=== PATIENT | female | born 1940 | race Caucasian/White ===

== ENCOUNTER 2017-11-22 03:53 | Emergency (ER) | payer MEDICARE, OTHER, SELFPAY ==
[2017-11-22 03:55] VITALS: BP 151/80; PULSE 71; RESP 18; TEMP 36.7; O2SAT 98; BMI 23.1
--- NOTE | 2017-11-22 04:10 | ED.VISSUMM ---
- ER Visit Summary Date of Service: 11/22/17 Chief Complaint: Fell down the steps of a mobile home History of Present Illness: The patient is a 77 F past medical history of anemia and hypertension. She and her have a new puppy she was taken outside this morning tripped lost her balance and fell down the steps walking out of the mobile home. She denies any LOC. Unsure of her last tetanus shot. She believes it may be greater than 10 years. She is on no anticoagulation. As she fell on the mobile home she had steps going down. She has a laceration to her left eyebrow. Also skin tears of her left forearm and left lower leg. She denies any neck pain. She denies other injuries. Physical Examination: Well appearing older female accompanied by her . Vital signs are stable afebrile. No distress. H EENT exam pupils are round and reactive to light. Extra motions are intact. The left eyebrow has a 4-5 cm vertical laceration. That will need to be repaired. No signs of entrapment. No dental injury. Scalp is nontender without hematomas. C-spine nontender trachea midline. Normal range of motion to her neck. Lungs clear to auscultation bilaterally. Chest wall nontender. No signs of trauma. Heart regular rate and rhythm no murmur. Abdomen soft nontender. Normal bowel sounds. No signs of trauma. Pelvic girdle intact. She is moving all 4 extremities. They are neurovascularly intact. No signs of trauma to either the right upper or the right lower extremity. The left forearm has a skin tear. As does the left lower leg. There are no gross bony deformities. 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 She has normal range of motion and dorsi and plantar flexion in the lower extremity. Back exam is nontender. The cervical, thoracic and lumbar spine are all nontender. Neurologically she is awake and alert. Mary Jane Coma Scale 15. No focal motor or sensory deficits. She is awake alert and talking. Acting appropriately. Test Results: None Emergency Department Course and Treatment: Suture repair left eyebrow. Let then subcu lidocaine. Cleaned with Shur-Clens, washed and explored. Closed with #4 simple interrupted 5-0 Ethilon sutures. Proper hemostasis and wound closure obtained. Patient tolerated procedure well. Was discharged home with wound care instructions and suture removal in 7-10 days. Treatment Plan: Cleaned and washed and dressed all skin tears. Patient is doing well on repeat exam at 05 10. Neurologically remains intact. With no focal motor deficits. No headache. And moving all 4 extremities. Disposition: Discharge Impression: Fall down steps leaving mobile home Left eyebrow laceration with ER repair of approximately 5 cm. Left forearm skin tear Left lower leg skin tear and contusion This note was generated with [employer] dictation software. It may contain incorrect words, spelling, and punctuation that were not noted in review of the chart prior to signing ED Disposition - Plan for ED Patient: Disposition: Home or Assisted Living Chief Complaint: Laceration Instructions: ED Contusion Soft Tissue, ED Laceration Facial Sutr Tape Referrals: Elena Casiano MD [Primary Care Provider] - 10 Day for suture removal Additional Instructions: Ice to all sore areas. Keep all wounds clean. Apply antibiotic ointment daily. Left eyebrow suture removal in no less than 7 and no more than 10 days. Tylenol for pain. Call return if feeling worse.
--- NOTE | 2017-11-22 04:15 | ED.DEP ---
ED Disposition - Plan for ED Patient: Disposition: Home or Assisted Living Chief Complaint: Laceration Instructions: ED Laceration Facial Sutr Tape, ED Contusion Soft Tissue Referrals: Elena Casiano MD [Primary Care Provider] - 10 Day for suture removal Additional Instructions: Ice to all sore areas. Keep all wounds clean. Apply antibiotic ointment daily. Left eyebrow suture removal in no less than 7 and no more than 10 days. Tylenol for pain. Call return if feeling worse.
[2017-11-22] MEDS: Lidocaine/Epi/Tetracaine 50 ML 1 APPLIC TOPICAL (04:25)
[2017-11-22] MEDS: Diphth,Pertuss(Acell),Tet Vac 0.5 ML Vial IM (04:27)
[2017-11-22 05:21] VITALS: BP 116/71; PULSE 68; RESP 16; O2SAT 95
== END 2017-11-22 05:23 | disposition home or self-care (01) ==
PROVIDERS: Emergency Provider Emergency Medicine; Family Provider Internal Medicine; PCP Internal Medicine
DX: S01.112A Laceration without foreign body of left eyelid and periocular area, initial encounter (principal); S51.812A Laceration without foreign body of left forearm, initial encounter; S81.812A Laceration without foreign body, left lower leg, initial encounter; W01.0XXA Fall on same level from slipping, tripping and stumbling without subsequent striking against object, initial encounter; Y93.9 Activity, unspecified; Y92.028 Other place in mobile home as the place of occurrence of the external cause; Y99.9 Unspecified external cause status; I10 Essential (primary) hypertension; D64.9 Anemia, unspecified; Z79.899 Other long term (current) drug therapy
CPT/HCPCS: 12013; 90471; 90715; 99284

== ENCOUNTER 2018-09-02 22:56 | Inpatient (IN) | payer MEDICARE, OTHER, SELFPAY ==
[2018-09-02 22:58] VITALS: BP 93/61; PULSE 111; RESP 17; TEMP 37.4; O2SAT 92; BMI 24.1
--- NOTE | 2018-09-02 23:13 | CT_ITS ---
STUDY: CT BRAIN WITHOUT CONTRAST REASON FOR EXAM: Female, 78 years old. Confusion and difficulty with speech. RADIATION DOSAGE (If Supplied By Facility): CTDIvol = ( 44.99 ) mGy, DLP = ( 796.11 ) mGycm TECHNIQUE: Transaxial CT imaging of the brain was performed without administration of intravenous contrast material. Multiplanar reformations are submitted for interpretation. Individualized dose optimization techniques were used for this CT. COMPARISON: MRI of the brain dated January 19, 2016. FINDINGS: Normal soft tissue structures. Normal calvarium. There is mild cerebral atrophy with widening of the extra-axial spaces and ventricular dilatation. There are areas of decreased attenuation within the white matter tracts of the supratentorial brain, consistent with microvascular disease changes. There are small punctate calcifications of the basal ganglia which are seen in the aging brain as a normal variant. Normal brainstem. Normal cerebellum. There is no intracranial hemorrhage. There is minimal atherosclerotic calcification of the intracranial arteries. Normal visualized paranasal sinuses. CT/Brain/Head without Contrast IMPRESSION: 1. Chronic involutional changes of the brain. 2. No CT evidence of acute intracranial hemorrhage. Electronically Signed: Elsie Gomez MD at 0:13 EDT , Service support ,
--- NOTE | 2018-09-02 23:14 | EKG12_ITS ---
Test Reason : ALT LOC Blood Pressure : / mmHG Vent. Rate : 103 BPM Atrial Rate : 103 BPM P-R Int : 136 ms QRS Dur : 076 ms QT Int : 338 ms P-R-T Axes : 030 -17 010 degrees QTc Int : 442 ms Sinus tachycardia Otherwise normal ECG Confirmed by ALBERT KNAPP ([id number]), medical transcription editor BRADFORD URRUTIA ([id number]) on 09/09/2018 8:47:35 AM Referred By: BERKLEY Confirmed By:ALBERT KNAPP
--- NOTE | 2018-09-02 23:14 | RAD_ITS ---
STUDY: X-RAY CHEST REASON FOR EXAM: Female, 78 years old. Altered level of consciousness and shortness of breath. TECHNIQUE: PA and lateral views of the chest. COMPARISON: CT of the chest dated January 18, 2016. FINDINGS: Cardiac monitoring leads are present. The lungs are expanded. There is mild interstitial thickening present in both lungs. There is no demonstrated pleural abnormality. Normal size heart. Normal mediastinum and [place]. Normal visualized pulmonary arteries. There is atherosclerotic tortuosity of the aortic arch and descending thoracic aorta. There is demineralization of the osseous structures. There are degenerative changes of the thoracic spine. There is no demonstrated abnormality of the visualized soft tissue structures of the upper abdomen. RAD/Chest PA and Lateral IMPRESSION: No radiographic evidence of acute cardiopulmonary disease. Electronically Signed: Elsie Gomez MD at 0:23 EDT , Service support ,
[2018-09-02 23:27] LABS: Absolute Lymphocyte Count 1.63 X10^3/ul (0.83-4.51); Absolute Neutrophil Count 4.6 X10^3/uL (2.0-7.7); Basophil# 0.02 X10^3/uL; Basophil% 0.3 % (0-1); Eosinophil# 0.24 X10^3/uL; Hematocrit 30.3 % (37-47); Hemoglobin 9.8 g/dl (12.0-15.0); Lymphocyte # 1.63 X10^3/ul (4.0); Lymphocyte % 20.5 % (19-41); Mean Corp Hgb Conc 32.3 g/gl (32-36); Mean Platelet Vol. 8.8 fl (6.2-12.0); Monocyte# 1.51 X10^3/uL; Neutrophil # 4.55 X10^3/uL (2.7-7.7); Neutrophil % 57.1 % (47-70); Platelet Count 377 K/mm3 (150-450); RBC Distribution Width CV 13.6 % (11.6-14.6); RBC Distribution Width SD 48.6 fl (35.1-43.9); Red Blood Count 3.06 M/mm3 (4.2-5.4)
[2018-09-02 23:28] VITALS: BP 93/60; PULSE 104; RESP 13; TEMP 37.4; O2SAT 96
[2018-09-02] MEDS: 0.9% Normal Saline 1,000 ML 999 ML IV (23:32)
[2018-09-02 23:38] LABS: ALB/GLOB Ratio 0.5 RATIO (0.9-2.4); AST(SGOT) 17 U/L (15-37); Alanine Aminotransfer ALT/SGPT 14 U/L (13-56); Albumin, Serum 2.2 g/dL (3.2-5.0); Alkaline Phosphatase 111 U/L (45-117); Anion Gap 6 (5-15); BUN 17 mg/dL (7-18); BUN/Creat Ratio 18.8 RATIO (10-20); Calcium,Total 8.3 mg/dL (8.5-10.1); Chloride 102 mmol/L (98-107); Differential Indicated SCAN CRITERIA MET; EST Glomerular Filtration Rate 64 mL/min (>60); Est Glom Filt Rate - Afr Amer 78 mL/min (>60); Globulin 4.2 g/dL (2.2-4.2); Glucose 106 mg/dL (74-106); POSITIVE COUNT NO; POSITIVE DIFFERENTIAL YES; POSITIVE MORPHOLOGY NO; Potassium 4.7 mmol/L (3.5-5.1); Protein, Total 6.4 g/dL (6.4-8.2); Sodium Level 135 mmol/L (136-145)
[2018-09-03] VITALS (15 sets, daily range): BP systolic 91–127; BP diastolic 51–67; PULSE 66–109; RESP 14–19; TEMP 36.4–37.2; O2SAT 93–97; BMI 23.6
[2018-09-03 00:02] LABS: Lactic Acid 0.8 mmol/L (0.4-2.0)
[2018-09-03 00:34] LABS: Mucous, Urine 0 SEEN /hpf (<or=2+); Red Blood Cells-Urine 0 SEEN /hpf (0-5); Squamous Epithelial Cells - UA 0 SEEN /hpf (5-10)
--- NOTE | 2018-09-03 00:38 | ED.RN ---
PT WITH SMALL SKIN TEAR ON LEFT LOWER LEG PRESENT ON ARRIVAL TO ED BY EMS. PT HAD FALLEN AT HOME. PT DENIES HITTING HEAD, BUT IS CONFUSED. PT EASILY AWAKENED FROM SLEEP. THIS RN COVERED SKIN TEAR WITH BACITRACIN AND GAUZE DRESSING.
[2018-09-03 00:39] LABS: Color, Urine Yellow (Yellow); Glucose, Dipstick Normal (Normal); Ketone-Dipstick Negative (Negative); Leukocyte Esterase-Dipstick 25 /ul (Negative); Nitrite-Dipstick Positive (Negative); Occult Blood-Urine Negative /ul (Negative); Protein-Dipstick Negative (Negative); Urine Bilirubin Dipstick Negative (Negative); Urine Clarity Clear (Clear); Urine Urobilinogen Normal (Normal)
[2018-09-03 00:48] LABS: Bacteria 2+ /hpf (None Seen); White Blood Cells 0-5 SEEN /hpf (0-5)
--- NOTE | 2018-09-03 00:59 | ED.VISSUMM ---
- ER Visit Summary Date of Service: 09/03/18 Chief Complaint: Confusion History of Present Illness: The patient is a 78 F who presents with confusion. states that he heard her calling out and she was on the floor in the bathroom. He had difficulty getting her up. After getting her back to bed she was not answering questions. EMS was contacted and on their arrival patient's mental status had improved however she did become transiently confused in route again. Patient complains of some chronic lower back pain but otherwise is without complaint. She denies recent illness such as fevers chest pain shortness of breath nausea vomiting. About 1 month ago she was in [place] and had a similar episode and was admitted and ultimately diagnosed with dehydration and colitis. He does have a history of some chronic diarrhea which is actually improved. Physical Examination: Heart rate 111 temperature 99.4, blood pressure 93/61 Moist mucous membranes Heart regular rate and rhythm with a 3 out of 6 systolic murmur Lungs are clear Abdomen soft Alert she is oriented to month year and person but when asked where she is she stated that she was in [facility] Test Results: EKG shows sinus tachycardia at a rate of 103. Labs notable for hemoglobin 9.8, sodium 135. Urinalysis is positive for nitrites and 2+ bacteria although no WBCs. Urine culture was sent. Hepatic function unremarkable. Lactic acid normal. Chest x-ray shows no acute disease. CT the head shows chronic changes. Emergency Department Course and Treatment: Patient has had waxing and waning mental status. She is intermittently been confused. UA shows possible UTI so she was treated with IV Rocephin. Patient will be discussed with the hospitalist and admitted. Treatment Plan: [] Disposition: Admit Impression: Altered mental status UTI This note was generated with Sinbad[employer] dictation software. It may contain incorrect words, spelling, and punctuation that were not noted in review of the chart prior to signing ED Disposition - Plan for ED Patient: Referrals: Elena Casiano MD [Primary Care Provider] -
[2018-09-03] MEDS: Ceftriaxone 1 GM/50 ML BAG IV ×2 (01:08→13:04)
--- NOTE | 2018-09-03 01:25 | ED.RN ---
DR. GOODEN INFORMED OF PT LOW BP. WILL CONTINUE TO MONITOR.
[2018-09-03] MEDS: 0.9% Normal Saline 1,000 ML 999 ML IV ×2 (01:33→02:03)
--- NOTE | 2018-09-03 01:53 | PCM.HP.STD ---
Problem List (1) UTI (urinary tract infection) Status: Acute (2) Acute encephalopathy Status: Acute (3) Sciatica Status: Chronic (4) Hypothyroid Status: Chronic (5) Fibromyalgia Status: Chronic (6) Arm paresthesia, right Status: Chronic (7) Near syncope Status: Resolved (8) Chest wall hematoma Status: Resolved History of Present Illness Date of Admission: 09/03/18 Chief Complaint: Altered mental status with fall. The patient is a 78 year old F with multiple comorbidities and multiple antidepressant and sleeping pills was brought in to ER for confusion with fall. She went to bathroom and had fall and does not remember exactly what happened. Her found her in the bathroom but she was confused and disoriented and not answering questions. She still gets intermittently confused and drowsy. She takes imipramine, zaleplon, gabapentin and tramadol as needed for severe pain. She denies any major injury. Her and the patient denies syncope said her eyes were open. In ED, she was found tachycardic heart rate in low 100s, blood pressure 94/61 but not tachypneic or hypoxic. She looks dehydrated and is thirsty but denies any obvious diarrhea or vomiting or fluid loss. She also complain of dysuria for last few days but denies fever or chills. Similar incidence of confusion and disorientation happened in July 2018 in [place]. She was last admitted in January 2016 for right sided chest wall hematoma Past Medical History Past Medical History (Chronic Problems): Chronic Problems Sciatica (Chronic) Hypothyroid (Chronic) Fibromyalgia (Chronic) Arm paresthesia, right (Chronic) Allergies Whtyttz-Jom-Plw Reductase Inhibitor Allergy (Verified 09/02/18 22:57) Swelling Home Medications: Ambulatory Orders Medication Instructions Recorded Calcium Citrate/Vitamin D3 2 each PO DAILY 09/02/18 [Citracal + D Maximum Caplet] Cholecalciferol (Vitamin D3) 2,000 unit PO DAILY 09/02/18 [Vitamin D3] Gabapentin [Neurontin] 300 mg PO TID 09/02/18 Imipramine HCl 10 mg PO QHS 09/02/18 Levothyroxine [Synthroid] 100 mcg PO DAILY 09/02/18 Lisinopril [Zestril] 10 mg PO DAILY 09/02/18 Omeprazole [Prilosec] 20 mg PO DAILY 09/02/18 Zaleplon 10 mg PO QHS 09/02/18 traMADol [Ultram (G)] 50 - 100 mg PO TID PRN 09/02/18 Ferrous Sulfate 325 mg PO DAILY 09/03/18 Glucosamine Sulfate 1,500 mg PO BID 09/03/18 Polyethylene Glycol 3350 [Miralax] 17 gm PO DAILY PRN 09/03/18 Psychiatric History: No pertinent psych hx Smoking Status: Never smoker - *Family History Paternal History Items: Heart Disease Review of Systems Constitutional: Reports: Malaise, Weakness, Fatigue HEENT: Reports: Difficulty Hearing - Left ear hearing loss, Hard of Hearing. Denies: Head Aches, Sinus Congestion, Sinus Drainage Cardiovascular: Denies: Chest Pain, Palpitations Respiratory: Denies: Cough, Shortness of breath at rest, Sputum production Gastrointestinal: Denies: Abdominal Pain, Nausea, Vomiting Genitourinary: Reports: Dysuria, Frequency Musculoskeletal: Reports: Leg Pain. Denies: Joint Pain, Joint Tenderness Skin: Reports: Skin Changes, - - Skin tear on both lower legs near chin or tibia. Denies: Rash, Wounds Neurological: Reports: Balance problems. Denies: Focal weakness, Numbness, Tingling Psychiatric: Denies: Anxiety, Depression, Homicidal Ideations, Suicidal Ideations Hematologic/ Lymphatic: Denies: Easy Bruising, Easy Bleeding VTE Information - Inpt Only VTE Present on Admission: No VTE Mechan Device Prophylaxis: None VTE Pharm Prophylaxis ordered?: Yes Patient Problems: Active and Suspected Problems UTI (urinary tract infection) (Acute) Acute encephalopathy (Acute) - Physical Exam General: Confused, Disoriented, Lethargic HEENT: Atraumatic, PERRLA, EOMI, Normocephalic Oral: Dry Mucosa Neck: Supple, No JVD, Negative Carotid Bruits Lungs: Clear to auscultation, Normal air movement, No rhonchi, No wheeze, No rales Cardiovascular: Regular rate, Regular Rhythm, Normal S1, Normal S2, No murmurs Abdomen: Bowel Sounds Present, Soft, Non Tender, Non-Distended, No Hepato-splenomegaly Extremities: No edema, Capillary Refill Less than 3 Seconds Skin: Ulcer/ Wound - Small superficial skin tear over both lower legs. It happened after she dropped object on her legs. Musculoskeletal: No Tenderness to Palpation of Joints or Extremities, Arthritic Changes, Muscle Wasting Neurological: Cranial nerves II-XII grossly intact, Deep Tendon Reflexes 2+/4 and Symmetrical, Neuro grossly intact Psych/Mental Status: Normal Affect, Appropriate Vital Signs Temp Pulse Resp BP Pulse Ox 98.9 F 90 16 92/53 L 96 09/03/18 01:25 09/03/18 01:25 09/03/18 01:25 09/03/18 01:25 09/03/18 01:25 Oxygen Flow Rate (L/min) 2 Oxygen Delivery Method Room Air Weight: 140 lb 14.006 oz Body Mass Index (BMI) 24.1 Finger Stick Blood Glucose 94 Laboratory Tests Past 24 Hrs 09/02/18 09/02/18 09/02/18 23:05 23:05 23:25 WBC 8.0 RBC 3.06 L Hgb 9.8 L Hct 30.3 L MCV 99.0 MCH 32.0 MCHC 32.3 RDW 13.6 RDW Differential 48.6 H Plt Count 377 MPV 8.8 Immature Gran % (Auto) 0.100 Neut % (Auto) 57.1 Lymph % (Auto) 20.5 Beckham % (Auto) 19.0 H Eos % (Auto) 3.0 Baso % (Auto) 0.3 Absolute Neuts (auto) 4.6 Absolute Lymphs (auto) 1.63 Total Counted Not Reportable Sodium 135 L Potassium 4.7 Chloride 102 Carbon Dioxide 27.0 Anion Gap 6 BUN 17 Creatinine 0.90 Estim Creat Clear Calc 45.20 Est GFR (MDRD) Af Amer 78 Est GFR (MDRD) Non-Af 64 BUN/Creatinine Ratio 18.8 Glucose 106 Lactic Acid 0.8 Calcium 8.3 L Total Bilirubin 0.30 AST 17 ALT 14 Alkaline Phosphatase 111 Total Protein 6.4 Albumin 2.2 L Globulin 4.2 Albumin/Globulin Ratio 0.5 L Urine Color Urine Clarity Urine pH Ur Specific [place] Urine Protein Urine Glucose (UA) Urine Ketones Urine Occult Blood Urine Nitrite Urine Bilirubin Urine Urobilinogen Ur Leukocyte Esterase Urine RBC Urine WBC Ur Squamous Epith Cells Urine Bacteria Urine Mucus 09/03/18 00:25 WBC RBC Hgb Hct MCV MCH MCHC RDW RDW Differential Plt Count MPV Immature Gran % (Auto) Neut % (Auto) Lymph % (Auto) Beckham % (Auto) Eos % (Auto) Baso % (Auto) Absolute Neuts (auto) Absolute Lymphs (auto) Total Counted Sodium Potassium Chloride Carbon Dioxide Anion Gap BUN Creatinine Estim Creat Clear Calc Est GFR (MDRD) Af Amer Est GFR (MDRD) Non-Af BUN/Creatinine Ratio Glucose Lactic Acid Calcium Total Bilirubin AST ALT Alkaline Phosphatase Total Protein Albumin Globulin Albumin/Globulin Ratio Urine Color Yellow Urine Clarity Clear Urine pH 5.0 Ur Specific [place] 1.010 Urine Protein Negative Urine Glucose (UA) Normal Urine Ketones Negative Urine Occult Blood Negative Urine Nitrite Positive H Urine Bilirubin Negative Urine Urobilinogen Normal Ur Leukocyte Esterase 25 H Urine RBC 0 SEEN Urine WBC 0-5 SEEN Ur Squamous Epith Cells 0 SEEN Urine Bacteria 2+ Urine Mucus 0 SEEN Assessment/Plan All Active Problems UTI (urinary tract infection) (Acute) Acute encephalopathy (Acute) Near syncope (Resolved) Chest wall hematoma (Resolved) The patient is a 78 year old F with multiple comorbidities and multiple antidepressant and sleeping pills was brought in to ER for confusion with fall in bathroom; Most likely secondary to multiple medications. She also has UTI. Initially was found mild hypotensive and tachycardic. 1. Acute encephalopathy most probably polypharmacy/toxic or infectious encephalopathy: We will treat the underlying disorder. Hold sedative medications. Tramadol only for severe pain. She denies seizures episode or history of seizure. No syncope. Patient is being admitted in PCU. 2. Mild tachycardia and hypotension probably secondary to dehydration, precipitated by polypharmacy: Patient having second liter of IV fluid normal saline bolus blood pressure is in upper 90s. 1 more liter of normal saline bolus and then 100 mL/h. Monitor intake and output. 2D echo tomorrow morning. She had a history of near syncope but currently she denies vertigo. Orthostatic blood pressure ordered. She denies nausea vomiting or diarrhea. 3. UTI/cystitis: UA is positive of nitrite, bacteria 2+, WBC 0-5 cells. Started empirically on IV ceftriaxone. Urine culture ordered. 4. Hypothyroidism: TSH and free T4 tomorrow a.m. 5. Other comorbidities include history of sciatica, back pain, fibromyalgia: Home medication reconciliation done. DVT prophylaxis: On Lovenox 40 mg subcu daily. Discontinue if platelet count drops less than 50,000 or hemoglobin less than 8 g% Clinical Impression(s) from Imaging Studies Brain CT 09/02/18 23:13 IMPRESSION: 1. Chronic involutional changes of the brain. 2. No CT evidence of acute intracranial hemorrhage. Chest X-Ray 09/02/18 23:14 IMPRESSION: No radiographic evidence of acute cardiopulmonary disease. Code Visit OBSV E&M: 67169 Initial observation care L3
[2018-09-03] MEDS: 0.9% Normal Saline 1,000 ML 100 ML IV (04:43)
[2018-09-03] MEDS: Levothyroxine 100 MCG Tablet PO (06:14)
[2018-09-03] MEDS: Gabapentin 300 MG Capsule PO ×2 (06:14→13:04)
[2018-09-03 06:49] LABS: Anion Gap 7 (5-15); BUN 14 mg/dL (7-18); BUN/Creat Ratio 19.2 RATIO (10-20); CPK Total, Creatine Kinase 58 U/L (26-192); Calcium,Total 7.5 mg/dL (8.5-10.1); Chloride 112 mmol/L (98-107); Creatinine, Serum 0.73 mg/dL (0.55-1.02); EST Glomerular Filtration Rate 82 mL/min (>60); Est Glom Filt Rate - Afr Amer 99 mL/min (>60); Estimated Creatinine Clearance 40.68 ml/min; Glucose 84 mg/dL (74-106); Potassium 4.5 mmol/L (3.5-5.1); Sodium Level 138 mmol/L (136-145); T4 Free Direct 0.84 ng/dL (0.76-1.46)
[2018-09-03 07:40] LABS: Bedside Glucose 107 mg/dL (70-110)
[2018-09-03] MEDS: Calcium Carb/Vitamin D 1 TABLET Tablet 2 TABLET PO (08:08)
[2018-09-03 08:18] LABS: Absolute Lymphocyte Count 1.22 X10^3/ul (0.83-4.51); Absolute Neutrophil Count 3.8 X10^3/uL (2.0-7.7); Basophil# 0.02 X10^3/uL; Basophil% 0.3 % (0-1); Eosinophil# 0.17 X10^3/uL; Eosinophils% 2.6 % (0-5); Hematocrit 30.5 % (37-47); Hemoglobin 9.8 g/dl (12.0-15.0); Lymphocyte # 1.22 X10^3/ul (4.0); Mean Corp Hgb Conc 32.1 g/gl (32-36); Mean Corpuscular Hgb 32.1 pg (27.0-32.0); Mean Platelet Vol. 8.5 fl (6.2-12.0); Monocyte# 1.23 X10^3/uL; Monocyte% 19.1 % (0-10); Neutrophil # 3.78 X10^3/uL (2.7-7.7); Neutrophil % 58.8 % (47-70); Platelet Count 313 K/mm3 (150-450); RBC Distribution Width CV 13.8 % (11.6-14.6); RBC Distribution Width SD 50.3 fl (35.1-43.9); Red Blood Count 3.05 M/mm3 (4.2-5.4); White Blood Count 6.4 K/mm3 (4.4-11.0)
[2018-09-03 08:32] LABS: Differential Indicated SCAN CRITERIA MET; POSITIVE COUNT NO; POSITIVE DIFFERENTIAL NO; POSITIVE MORPHOLOGY YES
[2018-09-03 08:33] LABS: Differential Comment SCANNED
--- NOTE | 2018-09-03 09:56 | ECHOD_ITS ---
Reason For Study: Syncope Procedure This was a 2D Doppler, Color Flow transthoracic echocardiogram. The exam was of adequate technical quality. Exam performed portable in patient room. Left Ventricle Normal LV size. Left ventricular systolic function is hyperdynamic. The estimated ejection fraction is 75 %. Diastolic function is indeterminate. No regional wall motion abnormalities noted. Right Ventricle Normal RV size. Normal systolic function. Atria The left atrium is moderately enlarged. Normal right atrium. No doppler evidence for ASD. Mitral Valve There is moderate mitral annular calcification. Extension of the mitral annular calcification onto the posterior mitral valve leaflet. Trivial mitral valve insufficiency. Tricuspid Valve Normal tricuspid valve. Trivial tricuspid valve insufficiency. Right ventricular systolic pressure estimated to be 29 mmHg. Aortic Valve Trisinus/trileaflet aortic valve. Mild diffuse aortic valve thickening. Pulmonic Valve The pulmonic valve is not well visualized. Trivial pulmonic valve insufficiency. Great Vessels Normal sized aortic root. Pericardium/Pleural No pericardial effusion. MMode/2D Measurements & Calculations LVIDd: 3.6 cm IVSd: 1.0 cm LVOT diam: 2.0 cm LVIDs: 1.6 cm LVPWd: 0.80 cm LVOT area: 3.0 cm2 FS: 56.0 % Ao root diam: 3.5 cm LAV(MOD-sp4): 66.9 ml LA A4 area: 21.2 cm2 LA dimension: 3.1 cm RA A4 area: 12.7 cm2 Time Measurements MV dec time: 0.20 sec Doppler Measurements & Calculations MV E max cuauhtemoc: 95.4 cm/sec Lat Peak E' Cuauhtemoc: 7.6 cm/sec Med Peak E' Cuauhtemoc: 7.8 cm/sec MV A max cuauhtemoc: 122.9 cm/sec E/E' lat: 12.6 E/E' med: 12.2 MV E/A: 0.78 MV V2 max: 153.1 cm/sec MV P1/2t max cuauhtemoc: 113.6 cm/sec Ao V2 max: 208.8 cm/sec MV max P.4 mmHg MV P1/2t: 79.0 msec Ao max P.4 mmHg MV V2 mean: 84.6 cm/sec MV mean P.3 mmHg MV dec slope: 421.4 cm/sec2 MIRANDA(V,D): 2.8 cm2 MV V2 VTI: 31.4 cm MVA(P1/2t): 2.8 cm2 LV V1 max: 193.9 cm/sec MR max cuauhtemoc: 481.4 cm/sec PA V2 max: 100.2 cm/sec LV V1 max P.0 mmHg MR max P.7 mmHg TR max cuauhtemoc: 254.7 cm/sec TR max P.9 mmHg Interpretation Summary Left ventricular systolic function is hyperdynamic. The estimated ejection fraction is 75 %. The left atrium is moderately enlarged. There is moderate mitral annular calcification. Extension of the mitral annular calcification onto the posterior mitral valve leaflet. Trivial mitral valve insufficiency. Trivial tricuspid valve insufficiency. Mild diffuse aortic valve thickening. Trivial pulmonic valve insufficiency. Right ventricular systolic pressure estimated to be 29 mmHg. Diastolic function is indeterminate. Ordering Physician: Linda Rubio Referring Physician: luly armijo Performed By: Lamine Arrington RCS
--- NOTE | 2018-09-03 09:57 | CASEMGMT ---
Patient has a Healthcare Power of Demolitionist and a Healthcare Living Will. She is aware they are not on file at [facility]. Mary KARIMI
[2018-09-03] MEDS: Pantoprazole Sodium 20 MG Tablet PO (10:09)
[2018-09-03] MEDS: Enoxaparin 40 MG/0.4 ML Syringe SC (10:09)
[2018-09-03] MEDS: Lisinopril 10 MG Tablet PO (10:09)
--- NOTE | 2018-09-03 10:32 | CASEMGMT ---
NAS CORDERO assessment: Face to Face with patient for initial transition planning/care coordination assessment. NAS CORDERO introduced self and role at [facility], pt voices understanding and consents to assessment at this time. Pt is sitting up in chair in no distress at this time. Pt is A/Ox4 at this time and answers all questions appropriately at this time. Pt's is at bedside at this time. provided insurance cards which were copied, faxed to registration, and placed on chart. Care providers, pharmacy, and demographics verified at this time. PCP: [facility] Specialists: Pt states currently has no specialists. Preferred Pharmacy: [facility] mail order Insurance: MCR A/B, [employer] Prescription Benefit: [employer] Living Will/HPOA: Pt states has LW/HPOA and is aware that they are not currently on file at [facility] at this time. Pt states , Sukumar Ribera, is HPOA. LNOK: Sukumar Ribera, Living Arrangements: Pt states that her and her have a home but that they travel most of the year in their motor home and states no concerns at this time. Pt is independent with ADL's. Transportation: Pt states drives self and states no transportation concerns at this time. DME/HHC: Pt states that they have a walker at her home but she does not use. Pt states no need for any further DME at this time. Pt states no hx of HHC or SNF in the past. Pt states no concerns with going home at time of discharge and pt is anxious for discharge at this time. Pt is retired. Pt states does not smoke or drink ETOH. Pt states no further concerns/needs at this time. CM to follow for any further discharge planning/needs. Advised pt to ask for CM if any further questions/concerns/needs arise, voices understanding. Pt Goal: Home Plan[place]ORDER[place]
[2018-09-03 10:58] LABS: Magnesium 1.8 mg/dL (1.6-2.6)
--- NOTE | 2018-09-03 11:53 | PN_ITS ---
Patient Problems: Active and Suspected Problems UTI (urinary tract infection) (Acute) Acute encephalopathy (Acute) Subjective: Patient seen and examined. Alert and oriented. States she remembers going to the bathroom last evening and passed out as she was leaving the restroom. She states this has not happened to her before. She does not remember events prior to arriving to the emergency room. - Physical Exam General: Alert, Oriented x3, Cooperative HEENT: Atraumatic, PERRLA, EOMI, Normocephalic Neck: Supple, No JVD, Negative Carotid Bruits Lungs: Clear to auscultation, Normal air movement Cardiovascular: Regular rate, Regular Rhythm, Normal S1, Normal S2, Murmur Abdomen: Bowel Sounds Present, Soft, Non Tender, Non-Distended Extremities: No clubbing, No cyanosis, No edema, Capillary Refill Less than 3 Seconds Skin: No rashes, No breakdown Musculoskeletal: No Tenderness to Palpation of Joints or Extremities Neurological: Cranial nerves II-XII grossly intact, Neuro grossly intact Psych/Mental Status: Normal Affect, Appropriate Vital Signs Temp Pulse Resp BP Pulse Ox 98.2 F 109 H 18 116/67 95 09/03/18 08:20 09/03/18 11:00 09/03/18 08:20 09/03/18 08:20 09/03/18 08:20 Oxygen Flow Rate (L/min) 2 Oxygen Delivery Method Room Air Weight: 137 lb 5.568 oz Body Mass Index (BMI) 23.6 Finger Stick Blood Glucose 94 Intake and Output for Last 24 Hours 09/01/18 09/02/18 09/03/18 23:59 23:59 23:59 Intake Total 1369 / 1369 Balance 1369 / 1369 Laboratory Tests Past 24 Hrs 09/02/18 09/02/18 09/02/18 23:05 23:05 23:25 WBC 8.0 Corrected WBC RBC 3.06 L Hgb 9.8 L Hct 30.3 L MCV 99.0 MCH 32.0 MCHC 32.3 RDW 13.6 RDW Differential 48.6 H Plt Count 377 MPV 8.8 Immature Gran % (Auto) 0.100 Neut % (Auto) 57.1 Lymph % (Auto) 20.5 [place] % (Auto) 19.0 H Eos % (Auto) 3.0 Baso % (Auto) 0.3 Absolute Neuts (auto) 4.6 Absolute Lymphs (auto) 1.63 Total Counted Not Reportable Neutrophils % (Manual) Band Neutrophils % Lymphocytes % (Manual) Monocytes % (Manual) Eosinophils % (Manual) Basophils % (Manual) Metamyelocytes % Myelocytes % Promyelocytes % Blast Cells % Plasma Cell % (Manual) Other Cells % Nucleated RBCs/100 WBC Differential Comment Diff Path Review Hypersegmented Neuts Atypical Lymphocytes Reactive Lymphocytes Smudge Cells Toxic Granulation Dohle Bodies Lisseth Rods Platelet Estimate Plt Morphology Comment RBC Morphology Polychromasia Hypochromasia Poikilocytosis Basophilic Stippling Anisocytosis Microcytosis Macrocytosis Spherocytes Sickle Cells Target Cells Tear Drop Cells Ovalocytes Stomatocytes [place] Bodies Nick Cells Bite Cells Acanthocytes (Spur) Rouleaux Schistocytes Sodium 135 L Potassium 4.7 Chloride 102 Carbon Dioxide 27.0 Anion Gap 6 BUN 17 Creatinine 0.90 Estim Creat Clear Calc 45.20 Est GFR (MDRD) Af Amer 78 Est GFR (MDRD) Non-Af 64 BUN/Creatinine Ratio 18.8 Glucose 106 Lactic Acid 0.8 Calcium 8.3 L Magnesium Total Bilirubin 0.30 AST 17 ALT 14 Alkaline Phosphatase 111 Total Creatine Kinase Troponin I Total Protein 6.4 Albumin 2.2 L Globulin 4.2 Albumin/Globulin Ratio 0.5 L TSH Free T4 Urine Color Urine Clarity Urine pH Ur Specific [place] Urine Protein Urine Glucose (UA) Urine Ketones Urine Occult Blood Urine Nitrite Urine Bilirubin Urine Urobilinogen Ur Leukocyte Esterase Urine RBC Urine WBC Ur Squamous Epith Cells Urine Bacteria Urine Mucus 09/03/18 09/03/18 09/03/18 00:25 05:12 05:12 WBC Cancelled Corrected WBC Cancelled RBC Cancelled Hgb Cancelled Hct Cancelled MCV Cancelled MCH Cancelled MCHC Cancelled RDW Cancelled RDW Differential Cancelled Plt Count Cancelled MPV Cancelled Immature Gran % (Auto) Cancelled Neut % (Auto) Cancelled Lymph % (Auto) Cancelled [place] % (Auto) Cancelled Eos % (Auto) Cancelled Baso % (Auto) Cancelled Absolute Neuts (auto) Cancelled Absolute Lymphs (auto) Cancelled Total Counted Cancelled Neutrophils % (Manual) Cancelled Band Neutrophils % Cancelled Lymphocytes % (Manual) Cancelled Monocytes % (Manual) Cancelled Eosinophils % (Manual) Cancelled Basophils % (Manual) Cancelled Metamyelocytes % Cancelled Myelocytes % Cancelled Promyelocytes % Cancelled Blast Cells % Cancelled Plasma Cell % (Manual) Cancelled Other Cells % Cancelled Nucleated RBCs/100 WBC Cancelled Differential Comment Cancelled Diff Path Review Cancelled Hypersegmented Neuts Cancelled Atypical Lymphocytes Cancelled Reactive Lymphocytes Cancelled Smudge Cells Cancelled Toxic Granulation Cancelled Dohle Bodies Cancelled Lisseth Rods Cancelled Platelet Estimate Cancelled Plt Morphology Comment Cancelled RBC Morphology Cancelled Polychromasia Cancelled Hypochromasia Cancelled Poikilocytosis Cancelled Basophilic Stippling Cancelled Anisocytosis Cancelled Microcytosis Cancelled Macrocytosis Cancelled Spherocytes Cancelled Sickle Cells Cancelled Target Cells Cancelled Tear Drop Cells Cancelled Ovalocytes Cancelled Stomatocytes Cancelled [place] Bodies Cancelled Nick Cells Cancelled Bite Cells Cancelled Acanthocytes (Spur) Cancelled Rouleaux Cancelled Schistocytes Cancelled Sodium 138 Potassium 4.5 Chloride 112 H Carbon Dioxide 19.0 L Anion Gap 7 BUN 14 Creatinine 0.73 Estim Creat Clear Calc 40.68 Est GFR (MDRD) Af Amer 99 Est GFR (MDRD) Non-Af 82 BUN/Creatinine Ratio 19.2 Glucose 84 Lactic Acid Calcium 7.5 L Magnesium Total Bilirubin AST ALT Alkaline Phosphatase Total Creatine Kinase 58 Troponin I Total Protein Albumin Globulin Albumin/Globulin Ratio TSH 5.80 H Free T4 0.84 Urine Color Yellow Urine Clarity Clear Urine pH 5.0 Ur Specific [place] 1.010 Urine Protein Negative Urine Glucose (UA) Normal Urine Ketones Negative Urine Occult Blood Negative Urine Nitrite Positive H Urine Bilirubin Negative Urine Urobilinogen Normal Ur Leukocyte Esterase 25 H Urine RBC 0 SEEN Urine WBC 0-5 SEEN Ur Squamous Epith Cells 0 SEEN Urine Bacteria 2+ Urine Mucus 0 SEEN 09/03/18 09/03/18 07:46 10:20 WBC 6.4 Corrected WBC RBC 3.05 L Hgb 9.8 L Hct 30.5 L MCV 100.0 H MCH 32.1 H MCHC 32.1 RDW 13.8 RDW Differential 50.3 H Plt Count 313 MPV 8.5 Immature Gran % (Auto) 0.200 Neut % (Auto) 58.8 Lymph % (Auto) 19.0 [place] % (Auto) 19.1 H Eos % (Auto) 2.6 Baso % (Auto) 0.3 Absolute Neuts (auto) 3.8 Absolute Lymphs (auto) 1.22 Total Counted Not Reportable Neutrophils % (Manual) Band Neutrophils % Lymphocytes % (Manual) Monocytes % (Manual) Eosinophils % (Manual) Basophils % (Manual) Metamyelocytes % Myelocytes % Promyelocytes % Blast Cells % Plasma Cell % (Manual) Other Cells % Nucleated RBCs/100 WBC Differential Comment SCANNED Diff Path Review Hypersegmented Neuts Atypical Lymphocytes Reactive Lymphocytes Smudge Cells Toxic Granulation Dohle Bodies Lisseth Rods Platelet Estimate Plt Morphology Comment RBC Morphology Polychromasia Hypochromasia Poikilocytosis Basophilic Stippling Anisocytosis Microcytosis Macrocytosis Spherocytes Sickle Cells Target Cells Tear Drop Cells Ovalocytes Stomatocytes [place] Bodies Nick Cells Bite Cells Acanthocytes (Spur) Rouleaux Schistocytes Sodium Potassium Chloride Carbon Dioxide Anion Gap BUN Creatinine Estim Creat Clear Calc Est GFR (MDRD) Af Amer Est GFR (MDRD) Non-Af BUN/Creatinine Ratio Glucose Lactic Acid Calcium Magnesium 1.8 Total Bilirubin AST ALT Alkaline Phosphatase Total Creatine Kinase Troponin I < 0.015 Total Protein Albumin Globulin Albumin/Globulin Ratio TSH Free T4 Urine Color Urine Clarity Urine pH Ur Specific [place] Urine Protein Urine Glucose (UA) Urine Ketones Urine Occult Blood Urine Nitrite Urine Bilirubin Urine Urobilinogen Ur Leukocyte Esterase Urine RBC Urine WBC Ur Squamous Epith Cells Urine Bacteria Urine Mucus POC Glucose 09/02/18 22:57 POC Glucose 107 Medical Necessity - Tobacco Use Smoking Status: Never smoker Assessment/Plan All Active Problems UTI (urinary tract infection) (Acute) Acute encephalopathy (Acute) Near syncope (Resolved) Chest wall hematoma (Resolved) 1. Suspected syncopal episode-patient reports she passed out following using the restroom last evening. Trend enzymes. Monitor telemetry. Obtain echocardiogram. Check orthostatic vitals. PT/OT. Fall precautions. Brain CT with chronic changes, no acute process. Chest x-ray unremarkable. 2. Acute metabolic encephalopathy secondary to UTI versus polypharmacy-mental status now at baseline. Suspect episode prior to admission more likely secondary to #1. UTI positive for nitrites, otherwise does not appear to have significant UTI. Urine culture pending, will follow. IV Rocephin empirically. Recommend discontinuing home zaleplon and tramadol regimen. 3. Hypothyroidism-continue home Synthroid regimen. TSH mildly elevated, T4 normal. 4. Chronic back pain/sciatica/fibromyalgia- PT/OT. Recommend discontinuing tramadol. PRN Tylenol, ibuprofen at discharge. Continue gabapentin regimen. 5. Chronic normocytic anemia/iron deficiency anemia-stable, trend CBC. Continue iron supplementation. 6. Hypertension-stable, continue home lisinopril regimen. 7. GERD-continue omeprazole regimen. 8. Insomnia-recommend discontinuing zaleplon regimen given age and risk for falls. Recommend trial of melatonin instead. DVT prophylaxis-Lovenox subcu This patient was seen by YONG Timmons under the supervision of Dr. Rubio.
--- NOTE | 2018-09-03 16:57 | DCINST_ITS ---
- Discharge Diagnoses Current Active Problems: Current Active and Chronic Problems (1) Acute Encephalopathy (Infectious) secondary to Acute UTI, Unclear organism, UCx pending at discharge (2) Syncopal event, Possibly vasovagal event, noted to have occurred prior, possibly secondary to #1 (3) Chronic Fe Deficiency Anemia (4) Hypothyroidism with Elevated TSH, normal FT4 subclinical (5) Hypertension (6) Chronic insomnia on sedative regimen (7) Fibromyalgia, neuropathy, sciatica, OA (8) GERD You will use the following diet at home:: Cardiac Your food should be the consistency of: Regular Your liquids should be the consistency of: Regular/Thin Discharge Activity: - - Maintain fall precautions. Encourage continued activity. May resume sexual activity in: No Restrictions Weight Bearing Status: Weight bearing as tolerated Call your doctor if you observe: Fever of 101 or Higher, Inability to urinate, Inability to have a bowel movement, Using more than one pad per hour, Shortness of breath, Dizziness, Chest pain, Uncontrolled pain Instructions: Understanding Urinary Tract Infections (UTIs), What Is Syncope?, Causes of Syncope, Treating Syncope: Prevention, Understanding Dizziness, Balance Problems, and Fainting Additional Instructions: Given history of falls, noted fall while using restroom, advise strongly to discontinue sedative regimen where able, i.e. recommendation to stop evening sleeping pill. You could trial melatonin 3 mg nightly instead. Also, advise strongly tramadol regimen only when absolutely necessary. The hospital case management/social work will contact you to assist in set-up of outpatient physicial and occupational therapies. Allergies/Adverse Reactions: Allergies [id number] Reductase Inhibitor Allergy (Verified 09/02/18 22:57) Swelling Medications to take at Discharge Calcium Citrate/Vitamin D3 [Citracal + D Maximum Caplet] 2 each PO DAILY 09/02/18 Cholecalciferol (Vitamin D3) [Vitamin D3] 2,000 unit PO DAILY 09/02/18 Gabapentin [Neurontin] 300 mg PO TID 09/02/18 Imipramine HCl 10 mg PO QHS 09/02/18 Levothyroxine [Synthroid] 100 mcg PO DAILY 09/02/18 Lisinopril [Zestril] 10 mg PO DAILY 09/02/18 Omeprazole [Prilosec] 20 mg PO DAILY 09/02/18 traMADol [Ultram] 50 - 100 mg PO TID PRN 09/02/18 Cephalexin [Keflex] 500 mg PO Q12 #12 capsule 09/03/18 Ferrous Sulfate 325 mg PO DAILY 09/03/18 Glucosamine Sulfate 1,500 mg PO BID 09/03/18 Polyethylene Glycol 3350 [Miralax] 17 gm PO DAILY PRN 09/03/18 The following prescriptions were given: Cephalexin [Keflex] 500 mg PO Q12 #12 capsule Primary Care Physician: Elena Casiano MD [Primary Care Provider] - Please follow up with your Primary Care Physician in: Follow-up within 3-5 days to review admission. Test Results: Test results from this visit will be discussed in further detail at your follow- up appointment, if applicable. Proposed Discharge Date: 09/03/18
--- NOTE | 2018-09-03 17:06 | DS.PCM_ITS ---
Discharge Date and Diagnosis Date of Admission: 09/03/18 Date of Discharge: 09/03/18 - Primary Discharge Diagnosis Active and Suspected Problems 1. Syncopal episode 2. Acute metabolic encephalopathy secondary to UTI versus polypharmacy 3. Hypothyroidism 4. Chronic back pain/sciatica/fibromyalgia 5. Chronic normocytic anemia/iron deficiency anemia 6. Hypertension 7. GERD 8. Insomnia - Secondary Discharge Diagnosis Chronic Problems Sciatica (Chronic) Hypothyroid (Chronic) Fibromyalgia (Chronic) Arm paresthesia, right (Chronic) Hospital Course and Treatment Imaging Results: Diagnostic Data Brain CT 09/02/18 23:13 IMPRESSION: 1. Chronic involutional changes of the brain. 2. No CT evidence of acute intracranial hemorrhage. Electronically Signed: Elsie Gomez MD at 0:13 EDT , Service support , Chest X-Ray 09/02/18 23:14 IMPRESSION: No radiographic evidence of acute cardiopulmonary disease. Electronically Signed: Elsie Gomez MD at 0:23 EDT , Service support , Operations: None Procedures: 2-D Echocardiogram Summary of Care Provided: The patient is a 78 year old F admitted 09/03/2018 due to altered mental status and fall. Patient initially made inpatient due to acute metabolic encephalopathy, UTI and syncope however patient improved more than expected in a brief amount of time. She was eager for discharge and found to be stable same day of admission. 1. Suspected syncopal episode-patient reports she passed out following using the restroom last evening. Cardiac enzymes negative. Orthostatic vitals negative. Echocardiogram pending and will be reviewed prior to discharge. Physical therapy recommending outpatient PT which patient is agreeable. Brain CT with chronic changes, no acute process. Chest x-ray unremarkable. 2. Acute metabolic encephalopathy secondary to UTI and/or polypharmacy-mental status now at baseline. Suspect episode prior to admission more likely secondar y to #1. UTI positive for nitrites, otherwise does not appear to have significant UTI. Urine culture pending, DC on PO keflex empirically. Recommend discontinuing home zaleplon and tramadol regimen. 3. Hypothyroidism-continue home Synthroid regimen. TSH mildly elevated, T4 normal. Recommend repeat thyroid panel in 4-6 weeks. 4. Chronic back pain/sciatica/fibromyalgia- Continue gabapentin regimen. Recommend using Tramdol PRN sparingly only. Outpatient PT at [place]. 5. Chronic normocytic anemia/iron deficiency anemia-stable, trend CBC. Continue iron supplementation. 6. Hypertension-stable, continue home lisinopril regimen. 7. GERD-continue omeprazole regimen. 8. Insomnia-recommend discontinuing zaleplon regimen given age and risk for falls. Recommend trial of melatonin instead. General: Alert, Oriented x3, Cooperative HEENT: Atraumatic, PERRLA, EOMI, Normocephalic Neck: Supple, No JVD, Negative Carotid Bruits Lungs: Clear to auscultation, Normal air movement Cardiovascular: Regular rate, Regular Rhythm, Normal S1, Normal S2, Murmur Abdomen: Bowel Sounds Present, Soft, Non Tender, Non-Distended Extremities: No clubbing, No cyanosis, No edema, Capillary Refill Less than 3 Seconds Skin: No rashes, No breakdown Musculoskeletal: No Tenderness to Palpation of Joints or Extremities Neurological: Cranial nerves II-XII grossly intact, Neuro grossly intact Psych/Mental Status: Normal Affect, Appropriate Patient seen and examined prior to discharge. Physical assessment as noted above. Patient is stable for discharge with follow up recommendations as noted above. This patient was seen by YONG Timmons under the supervision of Dr. Rubio. - Physical Exam Vital Signs Temp Pulse Resp BP Pulse Ox 98.5 F 104 H 19 H 102/51 L 96 09/03/18 14:20 09/03/18 15:00 09/03/18 14:20 09/03/18 14:33 09/03/18 14:20 Oxygen Flow Rate (L/min) 2 Oxygen Delivery Method Room Air Weight: 137 lb 5.568 oz Body Mass Index (BMI) 23.6 Finger Stick Blood Glucose 94 Orthostatic Vital Signs Start: 09/03/18 14:33 Freq: 0600 Status: Active Protocol: Activity Type Activity Date Activity User E-Sign Co-Sign Detail Recorded Client Recorded Date Recorded By Document 09/03/18 14:33 [employer] [id number] 09/03/18 14:37 [employer] 09/03/18 14:33 Orthostatic Vitals Standing -Blood Pressure (90/60-120/80) 94/53 L -Extremity Use Right Arm -Pulse Rate (60-100) 75 Sitting -Blood Pressure (90/60-120/80) 100/52 L -Extremity Use Right Arm -Pulse Rate (60-100) 70 Lying -Blood Pressure (90/60-120/80) 102/51 L -Extremity Use Right Arm -Pulse Rate (60-100) 70 Intake and Output for Last 24 Hours 09/01/18 09/02/18 09/03/18 23:59 23:59 23:59 Intake Total 3186 / 3186 Balance 3186 / 3186 Laboratory Tests Past 24 Hrs 09/02/18 09/02/18 09/02/18 23:05 23:05 23:25 WBC 8.0 Corrected WBC RBC 3.06 L Hgb 9.8 L Hct 30.3 L MCV 99.0 MCH 32.0 MCHC 32.3 RDW 13.6 RDW Differential 48.6 H Plt Count 377 MPV 8.8 Immature Gran % (Auto) 0.100 Neut % (Auto) 57.1 Lymph % (Auto) 20.5 [place] % (Auto) 19.0 H Eos % (Auto) 3.0 Baso % (Auto) 0.3 Absolute Neuts (auto) 4.6 Absolute Lymphs (auto) 1.63 Total Counted Not Reportable Neutrophils % (Manual) Band Neutrophils % Lymphocytes % (Manual) Monocytes % (Manual) Eosinophils % (Manual) Basophils % (Manual) Metamyelocytes % Myelocytes % Promyelocytes % Blast Cells % Plasma Cell % (Manual) Other Cells % Nucleated RBCs/100 WBC Differential Comment Diff Path Review Hypersegmented Neuts Atypical Lymphocytes Reactive Lymphocytes Smudge Cells Toxic Granulation Dohle Bodies Lisseth Rods Platelet Estimate Plt Morphology Comment RBC Morphology Polychromasia Hypochromasia Poikilocytosis Basophilic Stippling Anisocytosis Microcytosis Macrocytosis Spherocytes Sickle Cells Target Cells Tear Drop Cells Ovalocytes Stomatocytes [place] Bodies Clemons Cells Bite Cells Acanthocytes (Spur) Rouleaux Schistocytes Sodium 135 L Potassium 4.7 Chloride 102 Carbon Dioxide 27.0 Anion Gap 6 BUN 17 Creatinine 0.90 Estim Creat Clear Calc 45.20 Est GFR (MDRD) Af Amer 78 Est GFR (MDRD) Non-Af 64 BUN/Creatinine Ratio 18.8 Glucose 106 Lactic Acid 0.8 Calcium 8.3 L Magnesium Total Bilirubin 0.30 AST 17 ALT 14 Alkaline Phosphatase 111 Total Creatine Kinase Troponin I Total Protein 6.4 Albumin 2.2 L Globulin 4.2 Albumin/Globulin Ratio 0.5 L TSH Free T4 Urine Color Urine Clarity Urine pH Ur Specific [place] Urine Protein Urine Glucose (UA) Urine Ketones Urine Occult Blood Urine Nitrite Urine Bilirubin Urine Urobilinogen Ur Leukocyte Esterase Urine RBC Urine WBC Ur Squamous Epith Cells Urine Bacteria Urine Mucus 09/03/18 09/03/18 09/03/18 00:25 05:12 05:12 WBC Cancelled Corrected WBC Cancelled RBC Cancelled Hgb Cancelled Hct Cancelled MCV Cancelled MCH Cancelled MCHC Cancelled RDW Cancelled RDW Differential Cancelled Plt Count Cancelled MPV Cancelled Immature Gran % (Auto) Cancelled Neut % (Auto) Cancelled Lymph % (Auto) Cancelled [place] % (Auto) Cancelled Eos % (Auto) Cancelled Baso % (Auto) Cancelled Absolute Neuts (auto) Cancelled Absolute Lymphs (auto) Cancelled Total Counted Cancelled Neutrophils % (Manual) Cancelled Band Neutrophils % Cancelled Lymphocytes % (Manual) Cancelled Monocytes % (Manual) Cancelled Eosinophils % (Manual) Cancelled Basophils % (Manual) Cancelled Metamyelocytes % Cancelled Myelocytes % Cancelled Promyelocytes % Cancelled Blast Cells % Cancelled Plasma Cell % (Manual) Cancelled Other Cells % Cancelled Nucleated RBCs/100 WBC Cancelled Differential Comment Cancelled Diff Path Review Cancelled Hypersegmented Neuts Cancelled Atypical Lymphocytes Cancelled Reactive Lymphocytes Cancelled Smudge Cells Cancelled Toxic Granulation Cancelled Dohle Bodies Cancelled Lisseth Rods Cancelled Platelet Estimate Cancelled Plt Morphology Comment Cancelled RBC Morphology Cancelled Polychromasia Cancelled Hypochromasia Cancelled Poikilocytosis Cancelled Basophilic Stippling Cancelled Anisocytosis Cancelled Microcytosis Cancelled Macrocytosis Cancelled Spherocytes Cancelled Sickle Cells Cancelled Target Cells Cancelled Tear Drop Cells Cancelled Ovalocytes Cancelled Stomatocytes Cancelled [place] Bodies Cancelled Clemons Cells Cancelled Bite Cells Cancelled Acanthocytes (Spur) Cancelled Rouleaux Cancelled Schistocytes Cancelled Sodium 138 Potassium 4.5 Chloride 112 H Carbon Dioxide 19.0 L Anion Gap 7 BUN 14 Creatinine 0.73 Estim Creat Clear Calc 40.68 Est GFR (MDRD) Af Amer 99 Est GFR (MDRD) Non-Af 82 BUN/Creatinine Ratio 19.2 Glucose 84 Lactic Acid Calcium 7.5 L Magnesium Total Bilirubin AST ALT Alkaline Phosphatase Total Creatine Kinase 58 Troponin I Total Protein Albumin Globulin Albumin/Globulin Ratio TSH 5.80 H Free T4 0.84 Urine Color Yellow Urine Clarity Clear Urine pH 5.0 Ur Specific [place] 1.010 Urine Protein Negative Urine Glucose (UA) Normal Urine Ketones Negative Urine Occult Blood Negative Urine Nitrite Positive H Urine Bilirubin Negative Urine Urobilinogen Normal Ur Leukocyte Esterase 25 H Urine RBC 0 SEEN Urine WBC 0-5 SEEN Ur Squamous Epith Cells 0 SEEN Urine Bacteria 2+ Urine Mucus 0 SEEN 09/03/18 09/03/18 09/03/18 07:46 10:20 13:25 WBC 6.4 Corrected WBC RBC 3.05 L Hgb 9.8 L Hct 30.5 L MCV 100.0 H MCH 32.1 H MCHC 32.1 RDW 13.8 RDW Differential 50.3 H Plt Count 313 MPV 8.5 Immature Gran % (Auto) 0.200 Neut % (Auto) 58.8 Lymph % (Auto) 19.0 [place] % (Auto) 19.1 H Eos % (Auto) 2.6 Baso % (Auto) 0.3 Absolute Neuts (auto) 3.8 Absolute Lymphs (auto) 1.22 Total Counted Not Reportable Neutrophils % (Manual) Band Neutrophils % Lymphocytes % (Manual) Monocytes % (Manual) Eosinophils % (Manual) Basophils % (Manual) Metamyelocytes % Myelocytes % Promyelocytes % Blast Cells % Plasma Cell % (Manual) Other Cells % Nucleated RBCs/100 WBC Differential Comment SCANNED Diff Path Review Hypersegmented Neuts Atypical Lymphocytes Reactive Lymphocytes Smudge Cells Toxic Granulation Dohle Bodies Lisseth Rods Platelet Estimate Plt Morphology Comment RBC Morphology Polychromasia Hypochromasia Poikilocytosis Basophilic Stippling Anisocytosis Microcytosis Macrocytosis Spherocytes Sickle Cells Target Cells Tear Drop Cells Ovalocytes Stomatocytes [place] Bodies Clemons Cells Bite Cells Acanthocytes (Spur) Rouleaux Schistocytes Sodium Potassium Chloride Carbon Dioxide Anion Gap BUN Creatinine Estim Creat Clear Calc Est GFR (MDRD) Af Amer Est GFR (MDRD) Non-Af BUN/Creatinine Ratio Glucose Lactic Acid Calcium Magnesium 1.8 Total Bilirubin AST ALT Alkaline Phosphatase Total Creatine Kinase Troponin I < 0.015 < 0.015 Total Protein Albumin Globulin Albumin/Globulin Ratio TSH Free T4 Urine Color Urine Clarity Urine pH Ur Specific [place] Urine Protein Urine Glucose (UA) Urine Ketones Urine Occult Blood Urine Nitrite Urine Bilirubin Urine Urobilinogen Ur Leukocyte Esterase Urine RBC Urine WBC Ur Squamous Epith Cells Urine Bacteria Urine Mucus 09/03/18 16:25 WBC Corrected WBC RBC Hgb Hct MCV MCH MCHC RDW RDW Differential Plt Count MPV Immature Gran % (Auto) Neut % (Auto) Lymph % (Auto) [place] % (Auto) Eos % (Auto) Baso % (Auto) Absolute Neuts (auto) Absolute Lymphs (auto) Total Counted Neutrophils % (Manual) Band Neutrophils % Lymphocytes % (Manual) Monocytes % (Manual) Eosinophils % (Manual) Basophils % (Manual) Metamyelocytes % Myelocytes % Promyelocytes % Blast Cells % Plasma Cell % (Manual) Other Cells % Nucleated RBCs/100 WBC Differential Comment Diff Path Review Hypersegmented Neuts Atypical Lymphocytes Reactive Lymphocytes Smudge Cells Toxic Granulation Dohle Bodies Lisseth Rods Platelet Estimate Plt Morphology Comment RBC Morphology Polychromasia Hypochromasia Poikilocytosis Basophilic Stippling Anisocytosis Microcytosis Macrocytosis Spherocytes Sickle Cells Target Cells Tear Drop Cells Ovalocytes Stomatocytes [place] Bodies Clemons Cells Bite Cells Acanthocytes (Spur) Rouleaux Schistocytes Sodium Potassium Chloride Carbon Dioxide Anion Gap BUN Creatinine Estim Creat Clear Calc Est GFR (MDRD) Af Amer Est GFR (MDRD) Non-Af BUN/Creatinine Ratio Glucose Lactic Acid Calcium Magnesium Total Bilirubin AST ALT Alkaline Phosphatase Total Creatine Kinase Troponin I Pending Total Protein Albumin Globulin Albumin/Globulin Ratio TSH Free T4 Urine Color Urine Clarity Urine pH Ur Specific [place] Urine Protein Urine Glucose (UA) Urine Ketones Urine Occult Blood Urine Nitrite Urine Bilirubin Urine Urobilinogen Ur Leukocyte Esterase Urine RBC Urine WBC Ur Squamous Epith Cells Urine Bacteria Urine Mucus POC Glucose 09/02/18 22:57 POC Glucose 107 Discharge Diet: No Restrictions Discharge Activity: Return to Normal Activity Call your doctor if you observe: Shortness of breath, Dizziness, Fainting spells, Chest pain Home Medications: Medications to take at Discharge Calcium Citrate/Vitamin D3 [Citracal + D Maximum [place]] 2 each PO DAILY 09/02/18 Cholecalciferol (Vitamin D3) [Vitamin D3] 2,000 unit PO DAILY 09/02/18 Gabapentin [Neurontin] 300 mg PO TID 09/02/18 Imipramine HCl 10 mg PO QHS 09/02/18 Levothyroxine [Synthroid] 100 mcg PO DAILY 09/02/18 Lisinopril [Zestril] 10 mg PO DAILY 09/02/18 Omeprazole [Prilosec] 20 mg PO DAILY 09/02/18 Zaleplon 10 mg PO QHS 09/02/18 traMADol [Ultram (G)] 50 - 100 mg PO TID PRN 09/02/18 Ferrous Sulfate 325 mg PO DAILY 09/03/18 Glucosamine Sulfate 1,500 mg PO BID 09/03/18 Polyethylene Glycol 3350 [Miralax] 17 gm PO DAILY PRN 09/03/18 Primary Care Physician: Elena Casiano MD [Primary Care Provider] - Please follow up with your Primary Care Physician in: 1 Week Disposition: Home Minutes spent on discharge:: 35 Patient Condition:: Stable Medical Necessity - Tobacco Use Smoking Status: Never smoker Meaningful Use Info Meaningful Use Diagnoses (Choose all that apply): None applicable
== END 2018-09-03 18:46 | disposition home or self-care (01) | DRG 312 ==
LOC: ED 23:22 → PCU 09-03 01:56
PROVIDERS: Admitting Provider Internal Medicine; Emergency Provider Emergency Medicine; Family Provider Internal Medicine; PCP Internal Medicine; Visit Provider Family Medicine
DX: R55 Syncope and collapse (principal); G93.41 Metabolic encephalopathy; N39.0 Urinary tract infection, site not specified; I10 Essential (primary) hypertension; E03.9 Hypothyroidism, unspecified; D50.9 Iron deficiency anemia, unspecified; M79.7 Fibromyalgia; G62.9 Polyneuropathy, unspecified; M54.40 Lumbago with sciatica, unspecified side; G89.29 Other chronic pain; F51.04 Psychophysiologic insomnia; H91.92 Unspecified hearing loss, left ear; K21.9 Gastro-esophageal reflux disease without esophagitis; Z79.899 Other long term (current) drug therapy
CPT/HCPCS: 36415; 70450; 71046; 80048; 80053; 81001; 82550; 82962; 83605; 83735; 84439; 84443; 84484; 85025; 87040; 87077; 87086; 87088; 87186; 93005; 93306; 97162; 97166; 99285; J7030; J7050; Q9957; A4216

== ENCOUNTER → 2022-10-31 | Outpatient (CLI) | payer MEDICARE, OTHER, SELFPAY ==
[2022-10-31 10:53] LABS: Absolute Lymphocyte Count 1.74 X10^3/uL (0.83-4.51); Absolute Neutrophil Count 4.7 X10^3/uL (2.0-7.7); Basophil# 0.01 X10^3/uL; Basophil% 0.1 % (0-1); Eosinophils% 4.1 % (0-5); Hematocrit 36.4 % (37-47); Hemoglobin 11.4 g/dL (12.0-15.0); Lymphocyte # 1.74 X10^3/ul (0.83-4.51); Lymphocyte % 23.7 % (19-41); Mean Corp Hgb Conc 31.3 g/dL (32-36); Mean Corpuscular Hgb 31.2 pg (27.0-32.0); Mean Corpuscular Volume 99.7 fL (81-99); Mean Platelet Vol. 9.9 fl (6.2-12.0); Monocyte# 0.62 X10^3/uL; Monocyte% 8.4 % (0-10); NRBC Flagged by Analyzer 0 % (0-5); Neutrophil # 4.66 X10^3/uL (2.7-7.7); Neutrophil % 63.4 % (47-70); Platelet Count 220 K/mm3 (150-450); RBC Distribution Width CV 12.2 % (11.6-14.6); RBC Distribution Width SD 44.3 fl (35.1-43.9); Red Blood Count 3.65 M/mm3 (4.2-5.4); White Blood Count 7.4 K/mm3 (4.4-11.0)
[2022-10-31 11:39] LABS: ALB/GLOB Ratio 0.9 RATIO (0.9-2.4); AST(SGOT) 14 U/L (15-37); Alanine Aminotransfer ALT/SGPT 24 U/L (13-56); Albumin, Serum 3.5 g/dL (3.2-5.0); Alkaline Phosphatase 63 U/L (45-117); Anion Gap 4 (5-15); BUN 21 mg/dL (7-18); BUN/Creat Ratio 18.3 RATIO (10-20); Chloride 108 mmol/L (98-107); Cholesterol 210 mg/dL (200); Creatinine, Serum 1.15 mg/dL (0.55-1.02); EST Glomerular Filtration Rate 48 mL/min (>60); Est Glom Filt Rate - Afr Amer 58 mL/min (>60); Globulin 3.9 g/dL (2.2-4.2); Glucose 92 mg/dL (74-106); High Density Lipoprotein 59 mg/dL; Potassium 4.7 mmol/L (3.5-5.1); Protein, Total 7.4 g/dL (6.4-8.2); Sodium Level 140 mmol/L (136-145); Thyroid Stim Hormone (TSH) 2.13 uIU/mL (0.358-3.74); Triglycerides 114 mg/dL; Very Low Density Lipoprotein 23 mg/dL (5-40)
== END | disposition home or self-care (01) ==
LOC: MFPLAB 08:12
PROVIDERS: PCP Family Medicine; Visit Provider Family Medicine
DX: I10 Essential (primary) hypertension (principal); E03.9 Hypothyroidism, unspecified
CPT/HCPCS: 36415; 80053; 80061; 84443; 85025

== ENCOUNTER 2023-09-25 11:30 | Emergency (ER) | payer MEDICARE, OTHER, SELFPAY ==
[2023-09-25 11:31] VITALS: BP 122/65; PULSE 92; RESP 18; TEMP 36.9; O2SAT 93; BMI 24.6
--- NOTE | 2023-09-25 11:47 | EDS_ITS ---
HPI History of Present Illness HPI Narrative: Patient presents with pain to her right shoulder that began this morning. Patient states she woke up and had pain in her right shoulder. Patient describes it as throbbing. Patient states it is constant. Patient states she used ice and heat at different times this morning which helped somewhat. Patient denies any trauma or injury. Patient admits to some tingling down her right arm into her fingers. Patient admits to some mild weakness of her right hand. Chief Complaint: Upper Extremity Injury Informant: patient Onset/Context/Timing Onset: Today Context: Sudden Onset Timing: Continuous Quality of Pain: Throbbing Location: Right shoulder Worsened by: Palpation Relieved by: Ice and heat Associated Symptoms Associated Symptoms: Positive for Parasthesia and Weakness; Negative for Loss of Funtion [facility] Medical History (Updated 09/25/23 @ 14:[address] 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 Acute encephalopathy Home Medications ?Medication ?Instructions ?Recorded ?Last Taken ?Type calcium citrate 315 mg 2 ea PO DAILY vitamin 09/02/18 Unknown History calcium-vitamin D3 6.25 mcg (250 unit) tablet (Citracal + Vitamin D Maximum) cholecalciferol (vitamin D3) 50 2,000 unit PO DAILY vitamin 09/02/18 Unknown History mcg (2,000 unit) tablet (Vitamin D3) gabapentin 300 mg capsule 300 mg PO TID nerve pain 09/02/18 Unknown History (Neurontin) imipramine HCl 10 mg tablet 10 mg PO QHS depression 09/02/18 Unknown History levothyroxine 100 mcg tablet 100 mcg PO DAILY thyroid 09/02/18 Unknown History lisinopril 10 mg tablet 10 mg PO DAILY blood pressure 09/02/18 Unknown History omeprazole 20 mg capsule,delayed 20 mg PO DAILY reflux 09/02/18 Unknown History release tramadol 50 mg tablet 50 - 100 mg PO TID PRN Pain 09/02/18 Unknown History cephalexin 500 mg capsule 500 mg PO Q12 ##12 09/03/18 Unknown Rx ferrous sulfate 325 mg (65 mg 325 mg PO DAILY supplement 09/03/18 Unknown History iron) tablet glucosamine sulfate 500 mg capsule 1,500 mg PO BID supplement 09/03/18 Unknown History polyethylene glycol 3350 17 gram 17 g PO DAILY PRN Constipation 09/03/18 Unknown History oral powder packet hydrocodone-acetaminophen 5-325mg 1 tab PO Q6H PRN PRN Pain 3 days 09/25/23 Unknown Rx 5mg-325mg #10 TABLETS Allergy/AdvReac Type Severity Reaction Status Date / Time [id number] Reductase Allergy Swelling Verified 09/25/23 11:36 Inhibitor (Zgfhxnh-Smj-Hpo Reductase Inhibitor) Surgical History Hx of local excision of skin lesion Social History Smoking Status: Never smoker ROS ROS ED Constitutional Constitutional ED: Denies chills or fever(s) Eyes Eyes: Denies blurry vision or change in vision ENT ENT ED: Denies rhinorrhea or sore throat Cardiovascular Cardiovascular: Denies chest pain or palpitations Respiratory/Chest Respiratory/Chest: Denies cough or dyspnea Gastrointestinal Gastrointestinal: Denies nausea or vomiting Genitourinary Genitourinary ED: Denies dysuria or hematuria Musculoskeletal Musculoskeletal: Denies back pain or neck pain Integumentary Denies abscess or rash Neurologic Neurologic: Reports paresthesias RUE; Denies headache(s) or weakness Allergic/Immunologic Allergic/Immunologic ED: Denies mouth swelling or urticaria EXAM Physical Exam Const Vital Signs: 09/25/23 11:31 Temperature 98.4 F Temperature Source Oral Pulse Rate 92 Respiratory Rate 18 Blood Pressure 122/65 H Blood Pressure Mean 84 Pulse Ox 93 Oxygen Delivery Method Room Air Positive well nourished and well developed General Appearance ED: well developed and NAD HEENT Reports moist mucous membranes Neck full ROM General: Negative for tenderness Resp normal respiratory effort and clear to auscultation bilaterally Cardio regular rate and regular rhythm GI non-tender and non-distended Palpation: soft Extremity Extremity Narrative: There is diffuse tenderness over the right shoulder. There is no ecchymosis. There is no deformity noted. Range of motion was limited in all motions of the right shoulder secondary to pain. Strength is 4/5 in the right upper extremity in the radial, median, and ulnar areas. Strength is 5/5 in the left upper extremity. Radial pulses are equal bilateral. Sensation was intact to light touch in the radial, median, and ulnar areas. There is no tenderness over the cervical spine or paraspinal muscles. Neuro oriented x3, CN's II-XII intact bilaterally, moves all extremities, no focal motor deficits and no sensory deficits noted Sensorium / Orientation: alert Motor Exam: strength 5/5 throughout MDM MDM MDM Narrative Medical decision making narrative: Differential diagnosis includes proximal humerus fracture, AC separation, muscular strain, and cervical radiculopathy. X-rays of the right shoulder will be obtained to assess for fracture and AC separation. Radiography Diagnostic Testing: X-rays of the right shoulder were obtained. There are 2 views. On my independent interpretation, there are some degenerative changes noted. There is no acute fracture or dislocation noted. Radiologist also interpreted the x-rays and agrees. Treatment and Re-Evaluation Narrative: Patient was given a dose of [place] here. Patient was advised of her findings. Patient was instructed use ice to the area. Patient was given a prescription for a short course of [place]. Patient was instructed to follow-up with her primary care physician in 5 to 7 days. Patient understood and was agreeable with the plan. All questions were answered. Discharge Plan Triage Chief Complaint: Upper Extremity Injury ED Provider: Saravanan Rai Dx/Rx/DC Orders Clinical Impression: Acute pain of right shoulder, Arm paresthesia, right, Fibromyalgia Instructions: ED Shoulder Pain, Uncertain Cause Prescriptions: New hydrocodone-acetaminophen 5-325 mg tablet 1 tab PO Q6H PRN PRN (Reason: Pain) 3 Days Qty: 10 0RF No Action tramadol 50 MG tablet 50 - 100 mg PO TID PRN (Reason: Pain) levothyroxine 100 MCG tablet 100 mcg PO DAILY lisinopril 10 MG tablet 10 mg PO DAILY gabapentin [Neurontin] 300 MG capsule 300 mg PO TID omeprazole 20 MG capsule 20 mg PO DAILY imipramine HCl 10 MG tablet 10 mg PO QHS cholecalciferol (vitamin D3) [Vitamin D3] 2,000 UNIT tablet 2,000 unit PO DAILY calcium citrate-vitamin D3 [Citracal + D Maximum] 1 EACH tablet 2 ea PO DAILY polyethylene glycol 3350 17 GM powder in packet 17 g PO DAILY PRN (Reason: Constipation) ferrous sulfate 325 MG tablet 325 mg PO DAILY glucosamine sulfate 500 MG capsule 1,500 mg PO BID cephalexin 500 MG capsule 500 mg PO Q12 Qty: 12 0RF Primary Care Provider: Katerina Miller Referrals: Katerina Miller MD [Primary Care Provider] - 5-7 Days Print Language: Japanese Disposition Disposition: Home, Self Care
--- NOTE | 2023-09-25 12:12 | RAD_ITS ---
STUDY: X-RAY - RIGHT SHOULDER REASON FOR EXAM: Female, 83 years old. Pain. No known injury. TECHNIQUE: 2 view(s) of the shoulder. COMPARISON: None. FINDINGS: There is severe degenerative arthrosis of the glenohumeral articulation. There is degenerative arthrosis of the acromioclavicular joint without inferior osseous spur formation. Normal acromion. Normal humeral head and visualized proximal humerus. The soft tissue structures are unremarkable. Normal visualized pulmonary apex. 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 Degenerative changes of the right acromioclavicular joint. Electronically Signed: Albaro Seo MD at 13:11 EDT ,
[2023-09-25] MEDS: HYDROcodone Bitartrate/Apap 5/325 Tablet PO (12:16)
[2023-09-25 13:25] VITALS: BP 106/56; PULSE 87; RESP 14; O2SAT 94
[2023-09-25 14:23] VITALS: BP 126/83; PULSE 87; RESP 16; TEMP 36.1; O2SAT 97
== END 2023-09-25 14:34 | disposition home or self-care (01) ==
PROVIDERS: Emergency Provider Emergency Medicine; PCP Family Medicine; Visit Provider Emergency Medicine
DX: R20.2 Paresthesia of skin (principal); M79.7 Fibromyalgia; R29.898 Other symptoms and signs involving the musculoskeletal system; M25.511 Pain in right shoulder
CPT/HCPCS: 73030; 99282; A4216

== ENCOUNTER 2023-10-07 09:51 | Outpatient (RCR) | payer MEDICARE, SELFPAY ==
[2023-10-07 10:16] VITALS: BP 122/60; PULSE 68; RESP 18; TEMP 36.7
--- NOTE | 2023-10-07 13:00 | HP.PCM_ITS ---
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 Ribera is an 83-year-old female following up the wound care center today for evaluation of multiple sanguinous crust secondary to trauma on her vehicle. Patient states that she struck her left leg on the running board of her truck and has been dealing with a full-thickness wound for a few weeks at this time. She was referred by her doctor for evaluation. She denies getting a tetanus shot. No treatment thus far. She does admit to trauma. Denies constitutional symptoms. No other pedal complaints at this time. 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 Acute encephalopathy Home Medications ?Medication ?Instructions ?Recorded ?Last Taken ?Type calcium citrate 315 mg 2 ea PO DAILY vitamin 09/02/18 Unknown History calcium-vitamin D3 6.25 mcg (250 unit) tablet (Citracal + Vitamin D Maximum) cholecalciferol (vitamin D3) 50 2,000 unit PO DAILY vitamin 09/02/18 Unknown History mcg (2,000 unit) tablet (Vitamin D3) gabapentin 300 mg capsule 300 mg PO TID nerve pain 09/02/18 Unknown History (Neurontin) imipramine HCl 10 mg tablet 10 mg PO QHS depression 09/02/18 Unknown History levothyroxine 100 mcg tablet 100 mcg PO DAILY thyroid 09/02/18 Unknown History lisinopril 10 mg tablet 10 mg PO DAILY blood pressure 09/02/18 Unknown History omeprazole 20 mg capsule,delayed 20 mg PO DAILY reflux 09/02/18 Unknown History release tramadol 50 mg tablet 50 - 100 mg PO TID PRN Pain 09/02/18 Unknown History cephalexin 500 mg capsule 500 mg PO Q12 ##12 09/03/18 Unknown Rx ferrous sulfate 325 mg (65 mg 325 mg PO DAILY supplement 09/03/18 Unknown History iron) tablet glucosamine sulfate 500 mg capsule 1,500 mg PO BID supplement 09/03/18 Unknown History polyethylene glycol 3350 17 gram 17 g PO DAILY PRN Constipation 09/03/18 Unknown History oral powder packet hydrocodone-acetaminophen 5-325mg 1 tab PO Q6H PRN PRN Pain 3 days 09/25/23 Un known Rx 5mg-325mg #10 TABLETS Allergy/AdvReac Type Severity Reaction Status Date / Time Qhgrriv-WPW-UgA Reductase Allergy Swelling Verified 09/25/23 11:36 Inhibitor (Anmfdsu-Ewd-Bun Reductase Inhibitor) Surgical History Hx of local excision of skin lesion Social History Smoking Status: Never smoker Vital Signs Vital Signs Vital Signs: 10/07/23 10:16 Temperature 98.1 F Temperature Source Temporal Pulse Rate 68 Respiratory Rate 18 Blood Pressure 122/60 H Blood Pressure Mean 80 Blood Pressure Source Monitor Blood Pressure Position Semi-Fowlers Blood Pressure Location Left Arm Oxygen Delivery Method Room Air Physical Exam Narrative Vascular: DP and PT pulse are palpable to the bilateral lower extremity. Skin t emperature gradient is warm to warm from proximal ankle to distal digits bilateral. Nonpitting edema appreciated bilateral lower extremity. Evidence of hemosiderin deposits are appreciated bilateral. Neurological: Light touch intact. Epicritic sensation is intact. Dermatological: Full-thickness ulceration appreciated to left posterior leg measuring 0.2 x 0.7 x 0.1 cm. Full-thickness ulceration to left lateral leg measuring 3.5 x 2.5 x 0.1 cm. Right leg ulceration measures 0.5 x 0.5 x 0.1 cm. All wounds are granular nature with no drainage or probe to bone. Excisional debridement down to and including subcutaneous tissue with a number 5 mm dermal curette to the left posterior leg without incident. Predebridement measurement was sanguinous crust. Postdebridement measurement is 0.2 x 0.7 x 0.1 cm. Excisional debridement down to and including subcutaneous tissue with a number 5 mm dermal curette to the left lateral leg without incident. Predebridement measurement was sanguinous crust. Postdebridement measurement is 3.5 x 2.5 x 0.1 cm. Excisional debridement down to and including subcutaneous tissue with a number 5 mm dermal curette to the right proximal leg without incident. Predebridement measurement was sanguinous crust. Postdebridement measurement is 0.5 x 0.5 x 0.1 cm. Musculoskeletal: Mild pain to palpation to the distal lateral aspect of the left leg. No pain with calf compression. Debridement Note Debridement Note Debridement Free Text: Excisional debridement down to and including subcutaneous tissue with a number 5 mm dermal curette to the left posterior leg without incident. Predebridement measurement was sanguinous crust. Postdebridement measurement is 0.2 x 0.7 x 0.1 cm. Excisional debridement down to and including subcutaneous tissue with a number 5 mm dermal curette to the left lateral leg without incident. Predebridement measurement was sanguinous crust. Postdebridement measurement is 3.5 x 2.5 x 0.1 cm. Excisional debridement down to and including subcutaneous tissue with a number 5 mm dermal curette to the right proximal leg without incident. Predebridement measurement was sanguinous crust. Postdebridement measurement is 0.5 x 0.5 x 0.1 cm. Post-Debridement Measurements and Additional Note: Post-Debridement Measurements/Treatment - Nurse 1 - General Ulcer Assessment Start: 10/07/23 10:16 Freq: Status: Active Protocol: [id number] Activity Type Activity Date Activity User E-sign Co-sign Detail Recorded Client Recorded Date Recorded By Document 10/07/23 10:16 KW ; 10/07/23 10:22 KW 10/07/23 10:16 - Today's Visit Information Type of service Initial Visit Arrival Mode Ambulatory Accompanied by Patient Identification Verified (Name & Yes ) Vital Signs Temperature (97.8 F-99.1 F) 98.1 F Temperature Source Temporal Pulse Rate (60-100) 68 Pulse Location Monitor Respiratory Rate (12-18) 18 Respiratory rate source Observation Oxygen Delivery Method Room Air Blood Pressure (90/60-120/80) 122/60 H Blood Pressure Mean 80 Source Monitor Position Semi-Fowlers Blood Pressure Location Left Arm Pain Scale: 0-10 Numeric Is Patient Pain Free? Yes Lower Extremity Assessment/ Foot Assessment/ Toe Nail Assessment Left -Posterior Tibial Palpable Yes -Posterior Tibial Doppler Monophasic -Dorsalis Pedis Palpable Yes -Dorsalis Pedis Doppler Monophasic -Extremity Color Hyperpigmented, Hemosiderin -Hair Growth on Legs No -Hair Growth on Toes No -Temperature of Extremity Cool -Capillary Refill Less than 3 Seconds -Thick Yes -Discolored Yes -Deformed Yes Communication Assessment Preferred language Ghanaian Art Gilder Required No Able to Read Yes Able to Write Yes Communication Tools None Caregiver Communication Skills No Impairment Impairment Right Hearing Abillity Use of Hearing Aid Left Hearing Abillity Use of Hearing Aid Visual Assistive Devices Glasses Teaching Assessment Preferences Verbal,Written, Demonstration Barriers to Learning None Readiness To Learn Excellent Willingness to Engage in Self Management High Activies Readiness to Engage in Self Management High Activities Anxiety Level Calm Cooperation Cooperative Perception Coherent Interest in Health Problem Asks Questions Education Importance Acknowledges Need Does Patient Smoke tobacco or other Yes substances Smoking Status Never smoker Is Patient Diabetic No Functional Assessment Recent Decline in Ability to Perform Denies Any Declines Culture/Zoroastrianism/Peer Educator Cultural/Zoroastrianism Needs that may affect No Treatment Plan Would you allow our [facility] administration assistant to No meet you for the purpose of spiritual/ emotional support? Peer Educator to contact place of buddhist No WC - Nurse 1 - General Ulcer Measurement Start: 10/07/23 10:16 Freq: Status: Active Protocol: Activity Type Activity Date Activity User E-sign Co-sign Detail Recorded Client Recorded Date Recorded By Document 10/07/23 10:16 KW ; 10/07/23 10:22 KW 10/07/23 10:16 Wound Center Nurse 1 #1 LT LAT LE cluster -Current Size (cm) - Length 2 -Current Size (cm) - Width 1.9 -Current Size (cm) - Depth 0.3 -Total Square Cm 3.8 -Date of Last Picture (Recall this 10/07/23 field) -Exudate Amt Small -Exudate Type Serosanguineous -Wound Margin Distinct, Outline Attached -Granulation Amt Small (1-33%) -Granulation Quality Red -Necrosis Amt Large (67-100%) -Necrotic Tissue Type Adherent Slough -Texture (Arleth-wound Skin Appearance) Assessed -Moisture (Arleth-wound Skin Appearance) Assessed -Color (Arleth-wound Skin Appearance) Assessed, Erythema -Temperature (Arleth-wound Skin No Abnormality Appearance) (Pt Warm) -Tenderness on Palpation (Arleth-wound No Skin Appearance) -Ulcer Cleansing Rinsed/ Irrigated with Saline -Foul Odor after Cleansing No -Anesthetic Used 5% Lidocaine Gel Left Calf (cm) 35 Left Ankle (cm) 23.2 WC - Nurse 2 - General Ulcer CM Notes Start: 10/07/23 10:16 Freq: Status: Active Protocol: Activity Type Activity Date Activity User E-sign Co-sign Detail Recorded Client Recorded Date Recorded By Document 10/07/23 10:35 [id number] 10/07/23 10:41 JF 10/07/23 10:35 Wound Center Nurse 2 3-right leg -Time 10:40 -Correct Patient Yes -Correct Side, Site, Position Yes -Correct Procedure Yes -Procedure Performed Yes -Type of Procedure Debridement -Clinical Debridement Subcutaneous -Tissue Removed Subcutaneous -Post Debridement (cm) - Length 0.5 -Post Debridement (cm) - Width 0.5 -Post Debridement (cm) - Depth 0.1 -Total Square (Post) (cm) 0.25 -Area of Debridement (cm) - Length 0.5 -Area of Debridement (cm) - Width 0.5 -Total Square (Area) (cm) 0.25 -Tunneling No -Undermining/Tunneling No -Circular Undermining No -Wound/Ulcer Outcome Not Healed -Ulcer Cleansing Rinsed/ Irrigated with Saline -Foul Odor after Cleansing No -Bioengineered Tissue No -Bleeding Controlled with Pressure -Treatment Response Procedure Tolerated Well -Offloading No -Debridement - Subq, 1st 20sq cm Yes 2-leg posterior -Time 10:39 -Correct Patient Yes -Correct Side, Site, Position Yes -Correct Procedure Yes -Procedure Performed Yes -Type of Procedure Debridement -Clinical Debridement Subcutaneous -Tissue Removed Subcutaneous -Post Debridement (cm) - Length 0.2 -Post Debridement (cm) - Width 0.7 -Post Debridement (cm) - Depth 0.1 -Total Square (Post) (cm) 0.14 -Area of Debridement (cm) - Length 0.2 -Area of Debridement (cm) - Width 0.7 -Total Square (Area) (cm) 0.14 -Tunneling No -Undermining/Tunneling No -Circular Undermining No -Wound/Ulcer Outcome Not Healed -Ulcer Cleansing Rinsed/ Irrigated with Saline -Foul Odor after Cleansing No -Bioengineered Tissue No -Bleeding Controlled with Pressure -Treatment Response Procedure Tolerated Well -Offloading No -Debridement - Subq, 1st 20sq cm No #1 LT LAT LE cluster -Time 10:38 -Correct Patient Yes -Correct Side, Site, Position Yes -Correct Procedure Yes -Procedure Performed Yes -Type of Procedure Debridement -Clinical Debridement Subcutaneous -Tissue Removed Subcutaneous -Post Debridement (cm) - Length 3.5 -Post Debridement (cm) - Width 2.5 -Post Debridement (cm) - Depth 0.1 -Total Square (Post) (cm) 8.75 -Area of Debridement (cm) - Length 3.5 -Area of Debridement (cm) - Width 2.5 -Total Square (Area) (cm) 8.75 -Tunneling No -Undermining/Tunneling No -Circular Undermining No -Wound/Ulcer Outcome Not Healed -Ulcer Cleansing Rinsed/ Irrigated with Saline -Foul Odor after Cleansing No -Bioengineered Tissue No -Bleeding Controlled with Pressure -Treatment Response Procedure Tolerated Well -Offloading No -Debridement - Subq, 1st 20sq cm No Pain Scale: 0-10 Numeric Is Patient Pain Free? Yes - Nurse 3 - General Ulcer D/C NN Start: 10/07/23 10:16 Freq: Status: Active Protocol: Activity Type Activity Date Activity User E-sign Co-sign Detail Recorded Client Recorded Date Recorded By Document 10/07/23 11:19 [id number] 10/07/23 11:20 10/07/23 11:19 Wound Care Center Nurse 3 3-right leg -Primary Dressing Applied C Hydrogel ($), NonAdherent Contact Layer -Primary Dressing Covered/Secured with Dry Gauze & Roll Gauze, Secured with Tape 2-leg posterior -Other Dressing adaptic and hydrogel -Primary Dressing Covered/Secured with Dry Gauze & Roll Gauze, Secured with Tape #1 LT LAT LE cluster -Other Dressing adaptic and hydrogel -Primary Dressing Covered/Secured with Dry Gauze & Roll Gauze, Secured with Tape Right -Tubular Bandage Single Layer -Size of Tubigrip Used Size D -Size D ($) 1 Left -Tubular Bandage Single Layer -Size of Tubigrip Used Size D -Size D ($) 1 Pain Scale: 0-10 Numeric Is Patient Pain Free? Yes - Visit Discharge Discharge Condition Stable Ambulatory Status Ambulatory,Cane Transportation Private Auto Medication Reconcilliation completed & No provided to patient/care provider Clinical Summary of Care Provided Yes Assessment/Plan Assessment/Plan (1) Non-pressure chronic ulcer of other part of left lower leg with fat layer exposed: CODE(S): L97.822 - Non-pressure chronic ulcer of other part of left lower leg with fat layer exposed PLAN: Patient was examined and evaluated. All findings were discussed with the patient. All questions were answered to the patient's satisfaction. Excisional debridement down to and including subcutaneous tissue with a number 5 mm dermal curette to the left posterior leg without incident. Predebridement measurement was sanguinous crust. Postdebridement measurement is 0.2 x 0.7 x 0.1 cm. Excisional debridement down to and including subcutaneous tissue with a number 5 mm dermal curette to the left lateral leg without incident. Predebridement measurement was sanguinous crust. Postdebridement measurement is 3.5 x 2.5 x 0.1 cm. Excisional debridement down to and including subcutaneous tissue with a number 5 mm dermal curette to the right proximal leg without incident. Predebridement measurement was sanguinous crust. Postdebridement measurement is 0.5 x 0.5 x 0.1 cm. The bilateral lower extremities were cleaned and patted dry. Culture was taken from the distal lateral aspect of the left lower extremity. Will begin authorization for vascular study secondary to venous insufficiency to the bilateral lower extremity. The patient's wounds are dressed with hydrogel collagen and dry sterile dressing and bilateral Tubigrip's were donned. Patient was instructed to follow-up at urgent care for a tetanus shot since she has not had 1 when she injured her left leg against a metal. Follow-up at the wound care center with Dr. Bal in 1 week. 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
== END 2023-10-11 23:59 | disposition home or self-care (01) ==
LOC: WC 09:51
PROVIDERS: PCP Family Medicine; Referring Provider Family Medicine; Visit Provider Podiatrist Foot & Ankle Surgery
DX: L97.812 Non-pressure chronic ulcer of other part of right lower leg with fat layer exposed (principal); L97.822 Non-pressure chronic ulcer of other part of left lower leg with fat layer exposed; I73.89 Other specified peripheral vascular diseases; S81.802D Unspecified open wound, left lower leg, subsequent encounter; W22.09XD Striking against other stationary object, subsequent encounter; Z79.899 Other long term (current) drug therapy
CPT/HCPCS: 11042; 87070; 87075; 87077; 87186; 87205; 99214; G0463

== ENCOUNTER → 2023-10-20 | Outpatient (CLI) | payer MEDICARE, SELFPAY ==
[2023-10-20 12:55] LABS: Vitamin B12 971 pg/mL (211-911)
[2023-10-20 13:14] LABS: ALB/GLOB Ratio 0.9 RATIO (0.9-2.4); AST(SGOT) 16 U/L (15-37); Alanine Aminotransfer ALT/SGPT 17 U/L (13-56); Albumin, Serum 3.8 g/dL (3.2-5.0); Alkaline Phosphatase 92 U/L (45-117); Anion Gap 5 (5-15); BUN 17 mg/dL (7-18); BUN/Creat Ratio 13.7 RATIO (10-20); Calcium,Total 9.7 mg/dL (8.5-10.1); Chloride 105 mmol/L (98-107); Cholesterol 222 mg/dL (200); Creatinine, Serum 1.24 mg/dL (0.55-1.02); EST Glomerular Filtration Rate 44 mL/min (>60); Est Glom Filt Rate - Afr Amer 53 mL/min (>60); Globulin 4.2 g/dL (2.2-4.2); Glucose 101 mg/dL (74-106); High Density Lipoprotein 57 mg/dL; Iron 51 ug/dL (50-170); Iron Binding Capacity,Total 239 ug/dL (250-450); PERCENT IRON SATURATION 21.3 % (15.0-55.0); Potassium 4.6 mmol/L (3.5-5.1); Sodium Level 136 mmol/L (136-145); Thyroid Stim Hormone (TSH) 0.34 uIU/mL (0.358-3.74); Triglycerides 194 mg/dL; Very Low Density Lipoprotein 39 mg/dL (5-40)
== END | disposition home or self-care (01) ==
PROVIDERS: PCP Family Medicine; Referring Provider Family Medicine; Visit Provider Family Medicine
DX: I12.9 Hypertensive chronic kidney disease with stage 1 through stage 4 chronic kidney disease, or unspecified chronic kidney disease (principal); E03.9 Hypothyroidism, unspecified; D64.9 Anemia, unspecified; N18.2 Chronic kidney disease, stage 2 (mild)
CPT/HCPCS: 36415; 80053; 80061; 82607; 82746; 83540; 83550; 84443

== ENCOUNTER → 2023-10-20 | Outpatient (CLI) | payer MEDICARE, SELFPAY ==
[2023-10-20 18:06] LABS: Thyroid Stim Hormone (TSH) 0.37 uIU/mL (0.358-3.74)
== END | disposition home or self-care (01) ==
LOC: MFPLAB 13:55
PROVIDERS: PCP Family Medicine; Visit Provider Family Medicine
DX: I12.9 Hypertensive chronic kidney disease with stage 1 through stage 4 chronic kidney disease, or unspecified chronic kidney disease (principal); N18.2 Chronic kidney disease, stage 2 (mild); E03.9 Hypothyroidism, unspecified; D64.9 Anemia, unspecified
CPT/HCPCS: 36415; 84443

== ENCOUNTER → 2023-10-21 | Outpatient (CLI) | payer MEDICARE, SELFPAY ==
[2023-10-21 15:47] LABS: Vitamin D,25 Hydroxy 54.5 ng/mL
== END | disposition home or self-care (01) ==
LOC: MFPLAB 12:25
PROVIDERS: PCP Family Medicine; Visit Provider Family Medicine
DX: N18.2 Chronic kidney disease, stage 2 (mild) (principal)
CPT/HCPCS: 36415; 82306

== ENCOUNTER → 2023-10-28 | Outpatient (CLI) | payer MEDICARE, SELFPAY ==
[2023-10-28 13:24] LABS: Absolute Lymphocyte Count 2.73 X10^3/uL (0.83-4.51); Absolute Neutrophil Count 6.1 X10^3/uL (2.0-7.7); Basophil# 0.03 X10^3/uL; Basophil% 0.3 % (0-1); Eosinophil# 0.08 X10^3/uL; Eosinophils% 0.8 % (0-5); Hematocrit 37.7 % (37-47); Hemoglobin 11.6 g/dL (12.0-15.0); Lymphocyte # 2.73 X10^3/ul (0.83-4.51); Lymphocyte % 27.7 % (19-41); Mean Corp Hgb Conc 30.8 g/dL (32-36); Mean Corpuscular Hgb 30.2 pg (27.0-32.0); Mean Corpuscular Volume 98.2 fL (81-99); Mean Platelet Vol. 9.9 fl (6.2-12.0); Monocyte# 0.88 X10^3/uL; Monocyte% 8.9 % (0-10); NRBC Flagged by Analyzer 0 % (0-5); Neutrophil # 6.11 X10^3/uL (2.7-7.7); Platelet Count 322 K/mm3 (150-450); RBC Distribution Width SD 46.8 fl (35.1-43.9); Red Blood Count 3.84 M/mm3 (4.2-5.4); White Blood Count 9.9 K/mm3 (4.4-11.0)
[2023-10-28 13:32] LABS: Hemoglobin A1c 5.3 % (3.8-5.6)
[2023-10-28 13:59] LABS: ALB/GLOB Ratio 0.9 RATIO (0.9-2.4); AST(SGOT) 13 U/L (15-37); Alanine Aminotransfer ALT/SGPT 14 U/L (13-56); Albumin, Serum 3.5 g/dL (3.2-5.0); Alkaline Phosphatase 97 U/L (45-117); Anion Gap 7 (5-15); BUN 34 mg/dL (7-18); BUN/Creat Ratio 16.6 RATIO (10-20); Calcium,Total 9.5 mg/dL (8.5-10.1); Chloride 104 mmol/L (98-107); Cholesterol 188 mg/dL (200); Creatinine, Serum 2.05 mg/dL (0.55-1.02); EST Glomerular Filtration Rate 25 mL/min (>60); Est Glom Filt Rate - Afr Amer 30 mL/min (>60); Globulin 3.9 g/dL (2.2-4.2); Glucose 154 mg/dL (74-106); High Density Lipoprotein 68 mg/dL; Potassium 5.6 mmol/L (3.5-5.1); Protein, Total 7.4 g/dL (6.4-8.2); Sodium Level 135 mmol/L (136-145); Triglycerides 116 mg/dL; Very Low Density Lipoprotein 23 mg/dL (5-40)
== END | disposition home or self-care (01) ==
LOC: LAB 12:34
PROVIDERS: PCP Family Medicine; Referring Provider Podiatrist Foot & Ankle Surgery; Visit Provider Podiatrist Foot & Ankle Surgery
DX: L97.921 Non-pressure chronic ulcer of unspecified part of left lower leg limited to breakdown of skin (principal); D64.9 Anemia, unspecified; I12.9 Hypertensive chronic kidney disease with stage 1 through stage 4 chronic kidney disease, or unspecified chronic kidney disease; N18.2 Chronic kidney disease, stage 2 (mild)
CPT/HCPCS: 36415; 80053; 80061; 83036; 85025

== ENCOUNTER → 2023-11-03 | Outpatient (CLI) | payer MEDICARE, SELFPAY ==
[2023-11-03 15:08] LABS: Hematocrit 35.7 % (37-47); Mean Corp Hgb Conc 30.8 g/dL (32-36); Mean Corpuscular Hgb 30.4 pg (27.0-32.0); Mean Corpuscular Volume 98.6 fL (81-99); Mean Platelet Vol. 9.9 fl (6.2-12.0); Platelet Count 276 K/mm3 (150-450); RBC Distribution Width SD 46.9 fl (35.1-43.9); Red Blood Count 3.62 M/mm3 (4.2-5.4); White Blood Count 10.1 K/mm3 (4.4-11.0)
== END | disposition home or self-care (01) ==
LOC: MFPLAB 12:05
PROVIDERS: PCP Family Medicine; Visit Provider Family Medicine
DX: R42 Dizziness and giddiness (principal)
CPT/HCPCS: 36415; 85027

== ENCOUNTER 2023-11-11 13:00 | Outpatient (RCR) | payer MEDICARE, SELFPAY ==
[2023-10-12 00:50] VITALS: BP 122/60; PULSE 68; RESP 18; TEMP 36.7
[2023-10-14 11:02] VITALS: BP 116/65; PULSE 68; RESP 18; TEMP 35.9
--- NOTE | 2023-10-14 12:31 | PCM.WC.PN ---
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 Patient has been compliant with her dressing and dressing changes. Dressings has been redone clean dry and intact. She is here to go over her culture results and to have her wounds reevaluated to bilateral lower extremity. She admits to not getting her tetanus shot at the urgent care last week. She will try to go today. Denies any new onset of trauma except stated above. Denies constitutional symptoms. No other complaints at this time. Objective Data Objective Data Vital Signs: Vital Signs Temp Pulse Resp BP O2 Del Method 96.7 F L 68 18 116/65 Room Air 10/14/23 11:02 10/14/23 11:02 10/14/23 11:02 10/14/23 11:02 10/14/23 11:02 Oxygen Delivery Method Room Air Physical Exam Narrative Vascular: DP and PT pulse are palpable to the bilateral lower extremity. Skin temperature gradient is warm to warm from proximal ankle to distal digits bilateral. Nonpitting edema appreciated bilateral lower extremity. Evidence of hemosiderin deposits are appreciated bilateral. Neurological: Light touch intact. Epicritic sensation is intact. Dermatological: Full-thickness ulceration appreciated to left posterior leg measuring 1.0 x 0.5 x 0.1 cm. Full-thickness ulceration to left lateral leg measuring 2.8 x 2.1 x 0.1 cm. Right leg ulceration, healed. All wounds are granular nature with no drainage or probe to bone. Excisional debridement down to and including subcutaneous tissue with a number 5 mm dermal curette to the left posterior leg without incident. Predebridement measurement was 0.8 x 0.3 x 0.1 cm. Postdebridement measurement is 1.0 x 0.5 x 0.1 cm. Excisional debridement down to and including subcutaneous tissue with a number 5 mm dermal curette to the left lateral leg without incident. Predebridement measurement was 2.6 x 1.8 x 0.1 cm. Postdebridement measurement is 2.8 x 2.1 x 0.1 cm. Musculoskeletal: Mild pain to palpation to the distal lateral aspect of the left leg. No pain with calf compression. Debridement Note Debridement Note Debridement Free Text: Excisional debridement down to and including subcutaneous tissue with a number 5 mm dermal curette to the left posterior leg without incident. Predebridement measurement was 0.8 x 0.3 x 0.1 cm. Postdebridement measurement is 1.0 x 0.5 x 0.1 cm. Excisional debridement down to and including subcutaneous tissue with a number 5 mm dermal curette to the left lateral leg without incident. Predebridement measurement was 2.6 x 1.8 x 0.1 cm. Postdebridement measurement is 2.8 x 2.1 x 0.1 cm. Post-Debridement Measurements and Additional Note: Post-Debridement Measurements/Treatment WC - Nurse 1 - General Ulcer Assessment Start: 10/14/23 11:01 Freq: Status: Active Protocol: [id number] Activity Type Activity Date Activity User E-sign Co-sign Detail Recorded Client Recorded Date Recorded By Document 10/14/23 11:02 KW ; 10/14/23 11:17 KW 10/14/23 11:02 WC - Today's Visit Information Type of service Follow-up Visit (Physician/[employer] ) Arrival Mode Ambulatory,Cane Accompanied by Patient Identification Verified (Name & Yes ) Vital Signs Temperature (97.8 F-99.1 F) 96.7 F L Temperature Source Temporal Pulse Rate (60-100) 68 Pulse Location Monitor Respiratory Rate (12-18) 18 Respiratory rate source Observation Oxygen Delivery Method Room Air Blood Pressure (90/60-120/80) 116/65 Blood Pressure Mean (mm Hg) 82 Source Monitor Position Semi-Fowlers Blood Pressure Location Left Arm History Since Last Visit- (Skip if this is Patient's initial visit) Have you changed medications since your No last visit? Any new allergies or adverse reactions No Had a fall/change in ADL's that may No increase risk of falls Signs or symptoms of abuse and/or No neglect since last visit Have you been in the hospital since your No last visit? Has dressing in place as prescribed Yes Has compression in place as prescribed Yes Has offloadiing in place as prescribed N/A Experienced any changes in pain level or No management Left Footwear Regular Shoe Right Footwear Regular Shoe Pain Scale: 0-10 Numeric Is Patient Pain Free? Yes - Nurse 1 - General Ulcer Measurement Start: 10/14/23 11:01 Freq: Status: Active Protocol: Activity Type Activity Date Activity User E-sign Co-sign Detail Recorded Client Recorded Date Recorded By Document 10/14/23 11:02 KW ; 10/14/23 11:17 KW 10/14/23 11:02 Wound Center Nurse 1 3-right leg -Current Size (cm) - Length 0.1 -Current Size (cm) - Width 0.1 -Current Size (cm) - Depth 0.1 -Total Square Cm 0.01 -Texture (Arleth-wound Skin Appearance) Assessed -Moisture (Arleth-wound Skin Appearance) Assessed,Dry/ Scaly -Color (Arleth-wound Skin Appearance) Assessed, Hemosiderin Staining -Temperature (Arleth-wound Skin No Abnormality Appearance) (Pt Warm) -Tenderness on Palpation (Arleth-wound No Skin Appearance) -Ulcer Cleansing Rinsed/ Irrigated with Saline #1 LT LAT LE cluster -Current Size (cm) - Length 1.7 -Current Size (cm) - Width 1.6 -Current Size (cm) - Depth 0.2 -Total Square Cm 2.72 -Exudate Amt Medium -Exudate Type Serosanguineous -Wound Margin Distinct, Outline Attached -Granulation Amt Large (67-100%) -Granulation Quality Red -Necrosis Amt Small (1-33%) -Necrotic Tissue Type Adherent Slough -Texture (Arleth-wound Skin Appearance) Assessed -Moisture (Arleth-wound Skin Appearance) Maceration -Color (Arleth-wound Skin Appearance) Assessed, Erythema, Hemosiderin Staining -Temperature (Arleth-wound Skin No Abnormality Appearance) (Pt Warm) -Tenderness on Palpation (Arleth-wound No Skin Appearance) -Ulcer Cleansing Rinsed/ Irrigated with Saline -Foul Odor after Cleansing No -Anesthetic Used 5% Lidocaine Gel #4 lt lat leg inf -Current Size (cm) - Length 1 -Current Size (cm) - Width 0.4 -Current Size (cm) - Depth 0.1 -Total Square Cm 0.4 -Exudate Amt Small -Exudate Type Serosanguineous -Wound Margin Distinct, Outline Attached -Granulation Amt Large (67-100%) -Granulation Quality Red -Texture (Arleth-wound Skin Appearance) Assessed -Moisture (Arleth-wound Skin Appearance) Assessed -Color (Arleth-wound Skin Appearance) Assessed, Erythema, Hemosiderin Staining -Temperature (Arleth-wound Skin No Abnormality Appearance) (Pt Warm) -Tenderness on Palpation (Arleth-wound No Skin Appearance) -Ulcer Cleansing Rinsed/ Irrigated with Saline -Foul Odor after Cleansing No -Anesthetic Used 5% Lidocaine Gel 2-leg posterior -Current Size (cm) - Length 1 -Current Size (cm) - Width 0.5 -Current Size (cm) - Depth 0.2 -Total Square Cm 0.5 -Exudate Amt Medium -Exudate Type Serosanguineous -Wound Margin Distinct, Outline Attached -Granulation Amt Large (67-100%) -Granulation Quality Red -Necrosis Amt Small (1-33%) -Necrotic Tissue Type Adherent Slough -Texture (Arleth-wound Skin Appearance) Assessed -Moisture (Arleth-wound Skin Appearance) Maceration -Color (Arleth-wound Skin Appearance) Erythema, Hemosiderin Staining -Temperature (Arleth-wound Skin No Abnormality Appearance) (Pt Warm) -Tenderness on Palpation (Arleth-wound No Skin Appearance) -Ulcer Cleansing Rinsed/ Irrigated with Saline -Foul Odor after Cleansing No -Anesthetic Used 5% Lidocaine Gel Right Calf (cm) 36 Right Ankle (cm) 21.2 Left Calf (cm) 34.7 Left Ankle (cm) 23.2 WC - Nurse 2 - General Ulcer CM Notes Start: 10/14/23 11:01 Freq: Status: Active Protocol: Activity Type Activity Date Activity User E-sign Co-sign Detail Recorded Client Recorded Date Recorded By Document 10/14/23 11:35 0000 10/14/23 11:41 10/14/23 11:35 Wound Center Nurse 2 3-right leg -Correct Patient No -Correct Side, Site, Position No -Correct Procedure No -Procedure Performed No -Post Debridement (cm) - Length 0 -Post Debridement (cm) - Width 0 -Post Debridement (cm) - Depth 0 -Total Square (Post) (cm) 0 -Area of Debridement (cm) - Length 0 -Area of Debridement (cm) - Width 0 -Total Square (Area) (cm) 0 -Wound/Ulcer Outcome Healed- Epithelialized #1 LT LAT LE cluster -Correct Patient No -Correct Side, Site, Position No -Correct Procedure No -Procedure Performed No #4 lt lat leg inf -Time 11:35 -Correct Patient Yes -Correct Side, Site, Position Yes -Correct Procedure Yes -Procedure Performed Yes -Type of Procedure Debridement -Clinical Debridement Subcutaneous -Tissue Removed Subcutaneous -Post Debridement (cm) - Length 2.8 -Post Debridement (cm) - Width 2.1 -Post Debridement (cm) - Depth 0.1 -Total Square (Post) (cm) 5.88 -Area of Debridement (cm) - Length 2.8 -Area of Debridement (cm) - Width 2.1 -Total Square (Area) (cm) 5.88 -Tunneling No -Undermining/Tunneling No -Circular Undermining No -Ulcer Cleansing Rinsed/ Irrigated with Saline -Foul Odor after Cleansing No -Bioengineered Tissue No -Bleeding Controlled with Pressure -Treatment Response Procedure Tolerated Well -Offloading No -Debridement - Subq, 1st 20sq cm No 2-leg posterior -Time 11:40 -Correct Patient Yes -Correct Side, Site, Position Yes -Correct Procedure Yes -Procedure Performed Yes -Type of Procedure Debridement -Clinical Debridement Subcutaneous -Tissue Removed Subcutaneous -Post Debridement (cm) - Length 1.0 -Post Debridement (cm) - Width 0.5 -Post Debridement (cm) - Depth 0.1 -Total Square (Post) (cm) 0.50 -Area of Debridement (cm) - Length 1.0 -Area of Debridement (cm) - Width 0.5 -Total Square (Area) (cm) 0.50 -Tunneling No -Undermining/Tunneling No -Circular Undermining No -Wound/Ulcer Outcome Not Healed -Ulcer Cleansing Rinsed/ Irrigated with Saline -Foul Odor after Cleansing No -Bioengineered Tissue No -Bleeding Controlled with Pressure -Treatment Response Procedure Tolerated Well -Offloading No -Debridement - Subq, 1st 20sq cm Yes Pain Scale: 0-10 Numeric Is Patient Pain Free? Yes WC - Nurse 3 - General Ulcer D/C NN Start: 10/14/23 11:01 Freq: Status: Active Protocol: Activity Type Activity Date Activity User E-sign Co-sign Detail Recorded Client Recorded Date Recorded By Document 10/14/23 11:48 KW 0000 10/14/23 11:51 KW 10/14/23 11:48 Wound Care Center Nurse 3 #4 lt lat leg inf -Ulcer Cleansing Rinsed/ Irrigated with Saline -Primary Dressing Applied C Hydrogel ($), NonAdherent Contact Layer -Primary Dressing Covered/Secured with Dry Gauze & Roll Gauze, Secured with Tape 2-leg posterior -Primary Dressing Applied NonAdherent Contact Layer -Primary Dressing Covered/Secured with Dry Gauze Right -Tubular Bandage Single Layer -Size of Tubigrip Used Size D -Size D ($) 1 Left -Tubular Bandage Single Layer -Size of Tubigrip Used Size D -Size D ($) 1 Pain Scale: 0-10 Numeric Is Patient Pain Free? Yes WC - Visit Discharge Discharge Condition Stable Ambulatory Status Ambulatory,Cane Transportation Private Auto Medication Reconcilliation completed & No provided to patient/care provider Clinical Summary of Care Provided Yes Assessment/Plan Assessment/Plan (1) Non-pressure chronic ulcer of other part of left lower leg with fat layer exposed: CODE(S): L97.822 - Non-pressure chronic ulcer of other part of left lower leg with fat layer exposed PLAN: Patient was examined and evaluated. All findings were discussed with the patient. All questions were answered to the patient's satisfaction. Excisional debridement down to and including subcutaneous tissue with a number 5 mm dermal curette to the left posterior leg without incident. Predebridement measurement was 0.8 x 0.3 x 0.1 cm. Postdebridement measurement is 1.0 x 0.5 x 0.1 cm. Excisional debridement down to and including subcutaneous tissue with a number 5 mm dermal curette to the left lateral leg without incident. Predebridement measurement was 2.6 x 1.8 x 0.1 cm. Postdebridement measurement is 2.8 x 2.1 x 0.1 cm. Left lower extremities were cleaned and patted dry. Hydrogel was applied to both full-thickness ulceration followed by dry sterile dressing and compression sleeve. The patient's right proximal wound is now healed. Educated the patient continue to monitor to see if it regrows and if there is concern for benign or cancerous skin lesions we will perform an in office biopsy which she is understanding of. Review of the patient's antibiotics show growth of Staph aureus and E Colace and the patient will be placed on sensitive specific antibiotics, Bactrim DS twice daily for 2 weeks. Follow-up at the wound care center with Dr. Bal in 1 week. (2) Other specified peripheral vascular diseases: CODE(S): I73.89 - Other specified peripheral vascular diseases (3) Cellulitis: CODE(S): L03.90 - Cellulitis, unspecified
--- NOTE | 2023-10-20 10:01 | ART_ITS ---
Reason For Study: PVD Procedure A bilateral lower extremity continuous wave Doppler with analog waveform analysis and ankle brachial indexes. Left Segmental Pressures Left brachial= 105mmHg. Left posterior tibial artery = 184mmHg. Left dorsalis pedis artery = 129mmHg. Left digit = 71 mmHg. The left dorsalis pedis waveforms are biphasic. The left posterior tibial artery waveforms are triphasic. Right Segmental Pressures Right brachial= 106mmHg. Right posterior tibial artery = 121mmHg. Right dorsalis pedis artery = 119mmHg. Right digit = 92 mmHg. The right dorsalis pedis waveforms are triphasic. The right posterior tibial artery waveforms are triphasic. Indices The right ankle brachial index by the dorsalis pedis is 1.12. The right ankle brachial index by the posterior tibial artery is 1.14. The right digital-brachial index is 0.87. The left ankle brachial index by the dorsalis pedis is 1.22. The left ankle brachial index by the posterior tibial artery is 1.74. The left digital-brachial index is 0.67. VL/Ankle Brachial Index Interpretation Summary Triphasic Doppler waveforms are noted at ankle level on the right. Triphasic an d biphasic Doppler waveforms are noted at ankle level on the left. Pulse-volume recordings appear diminished at digital level on the left. Pulse-volume recordings appear satisfactory at ankle level b ilaterally, and at digital level on the right. The resting right ankle-brachial index is normal. T he resting left ankle-brachial index is supra-normal. The right digital-brachial index is jasmyn l. The left digital- brachial index is mildly diminished. There is evidence of arterial calcification at ankle level on the left. Arteria l flow appears normal at ankle level bilaterally, and at digital level on the right. There is evidenc e of mild arterial occlusive disease at digital level on the left. Ordering Physician: Valdemar Bal Referring Physician: Katerina Miller Performed By: Jada Montana RVT
--- NOTE | 2023-10-20 10:01 | VDLE_ITS ---
Reason For Study: Leg wound RIGHT LEFT CFV is compressible, spontaneous, phasic, CFV is compressible, spontaneous, phasic, competent and demonstrates normal competent, and demonstrates normal augmentation. augmentation. FV is compressible, spontaneous, phasic, FV is compressible, spontaneous, phasic, competent and demonstrates normal competent and demonstrates normal augmentation. augmentation. POP V is compressible, spontaneous, phasic, POP V is compressible, spontaneous, phasic, competent and demonstrates normal competent and demonstrates normal augmentation. augmentation. T/P Trunk is compressible. T/P Trunk is compressible. PTV is compressible. PTV is compressible. RT PerV is compressible. LT PerV is compressible. SFJ is competent and measures 0.56 cm. Acute deep vein thrombosis is noted in the GSV proximal thigh measures 0.24 x 0.26 cm. Soleus V. It is dilated and NONCOMPRESSIBLE. GSV above knee is competent. SFJ is competent and measures 0.68 cm. GSV at knee measures 0.23 x 0.22 cm. GSV proximal thigh measures 0.33 x 0.35 cm. GSV below knee is INCOMPETENT for greater GSV above knee is competent. than 0.5 seconds. GSV at knee measures 0.29 x 0.30 cm. ASV mid calf is INCOMPETENT for greater than GSV below knee is INCOMPETENT for greater 0.5 seconds and measures 0.22 x 0.25 cm. than 0.5 seconds. SSV proximal calf is competent and measures SSV proximal calf is competent and measures 0.15 x 0.16 cm. 0.15 x 0.18 cm. Procedure This is a venous duplex using B-mode, color flow and spectral Doppler. Exam performed in department. Patient was scanned in reverse Trendelenburg position during reflux assessment. A preliminary report was called and/or faxed to Cheryl LOVELL at [facility]. VL/Venous Duplex US - Marcellus Extrem Interpretation Summary Acute deep vein thrombosis is noted in the left soleus vein. The remainder of t he left lower extremity deep venous system is patent and compressible. Deep veins of the righ t lower extremity are patent and compressible segmentally. There is no evidence of right lower extrem ity deep vein thrombosis. Valvular competence appears intact within the proximal deep venous systems bilaterally. The great saphenous veins appear bilaterally patent and compressible segmentall y. Sapheno-femoral junctions are bilaterally competent . The right great saphenous vein appears co mpetent above the knee. The right great saphenous vein appears incompetent below the knee. The le ft great saphenous vein appears competent above the knee. The left great saphenous vein appears in competent below the knee. Small saphenous veins are patent and competent bilaterally. An accessory saphenous vein in the right mid-calf is incompetent. Ordering Physician: Valdemar Bal Referring Physician: Katerina Miller Performed By: Jada Montana RVT
--- NOTE | 2023-10-20 12:00 | WC ---
Jada from cardiovascular lab called to confirm that patient had a positive left vein DVT, wanted to know what to do with patient? Called Dr. Miller's nurse who is patient's PCP and Dr Miller is okay for patient to go home but she needs to call their office to schedule a telehealth on treatment plab. Gave this info to Jada to let Elizabeth know. She verbalized understanding.
--- NOTE | 2023-10-20 12:06 | WC ---
Dr Bal was notified of DVT and letting PCP aware, no further orders were given.
[2023-10-21 13:10] VITALS: BP 134/70; PULSE 90; RESP 18; TEMP 36.1
--- NOTE | 2023-10-21 15:13 | PCM.WC.PN ---
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 Patient is to get her venous and vascular studies that show evidence of a DVT to the left lower extremity. She was seen by her primary doctor who is treating on Eliquis 2.5 mg twice daily. She has left her dressing clean dry and intact. She denies any strikethrough or drainage. She denies any trauma. Denies constitutional symptoms. No other pedal complaints at this time. Objective Data Objective Data Vital Signs: Vital Signs Temp Pulse Resp BP O2 Del Method 96.9 F L 90 18 134/70 H Room Air 10/21/23 13:10 10/21/23 13:10 10/21/23 13:10 10/21/23 13:10 10/21/23 13:10 Oxygen Delivery Method Room Air Physical Exam Narrative Vascular: DP and PT pulse are palpable to the bilateral lower extremity. Skin temperature gradient is warm to warm from proximal ankle to distal digits bilateral. Nonpitting edema appreciated bilateral lower extremity. Evidence of hemosiderin deposits are appreciated bilateral. Neurological: Light touch intact. Epicritic sensation is intact. Dermatological: Full-thickness ulceration appreciated to left posterior leg measuring 0.5 x 0.4 x 0.1 cm. Full-thickness ulceration to left lateral leg measuring 1.2 x 1.3 x 0.1 cm. Right leg ulceration, healed. All wounds are granular nature with no drainage or probe to bone. Excisional debridement down to and including subcutaneous tissue with a number 5 mm dermal curette to the left posterior leg without incident. Predebridement measurement was 0.4 x 0.3 x 0.1 cm. Postdebridement measurement is 0.5 x 0.4 x 0.1 cm. Excisional debridement down to and including subcutaneous tissue with a number 5 mm dermal curette to the left lateral leg without incident. Predebridement measurement was 1.0 x 1.2 x 0.1 cm. Postdebridement measurement is 1.2 x 1.3 x 0.1 cm. Musculoskeletal: Mild pain to palpation to the distal lateral aspect of the left leg. No pain with calf compression. Debridement Note Debridement Note Debridement Free Text: Excisional debridement down to and including subcutaneous tissue with a number 5 mm dermal curette to the left posterior leg without incident. Predebridement measurement was 0.4 x 0.3 x 0.1 cm. Postdebridement measurement is 0.5 x 0.4 x 0.1 cm. Excisional debridement down to and including subcutaneous tissue with a number 5 mm dermal curette to the left lateral leg without incident. Predebridement measurement was 1.0 x 1.2 x 0.1 cm. Postdebridement measurement is 1.2 x 1.3 x 0.1 cm. Post-Debridement Measurements and Additional Note: Post-Debridement Measurements/Treatment WC - Nurse 1 - General Ulcer Assessment Start: 10/14/23 11:01 Freq: Status: Active Protocol: [id number] Activity Type Activity Date Activity User E-sign Co-sign Detail Recorded Client Recorded Date Recorded By Document 10/14/23 11:02 KW ; 10/14/23 11:17 KW Document 10/21/23 13:10 KW ; 10/21/23 13:12 KW 10/14/23 10/21/23 11:02 13:10 - Today's Visit Information Type of service Follow-up Visit Follow-up Visit (Physician/HEALTH PROMOTION COORDINATOR (Physician/HEALTH PROMOTION COORDINATOR ) ) Arrival Mode Ambulatory,Cane Ambulatory,Cane Accompanied by Patient Identification Verified (Name & Yes Yes ) Vital Signs Temperature (97.8 F-99.1 F) 96.7 F L 96.9 F L Temperature Source Temporal Temporal Pulse Rate (60-100) 68 90 Pulse Location Monitor Monitor Respiratory Rate (12-18) 18 18 Respiratory rate source Observation Observation Oxygen Delivery Method Room Air Room Air Blood Pressure (90/60-120/80) 116/65 134/70 H Blood Pressure Mean (mm Hg) 82 91 Source Monitor Monitor Position Semi-Fowlers Semi-Fowlers Blood Pressure Location Left Arm Left Arm History Since Last Visit- (Skip if this is Patient's initial visit) Have you changed medications since your No No last visit? Any new allergies or adverse reactions No No Had a fall/change in ADL's that may No No increase risk of falls Signs or symptoms of abuse and/or No No neglect since last visit Have you been in the hospital since your No No last visit? Has dressing in place as prescribed Yes Yes Has compression in place as prescribed Yes Yes Has offloadiing in place as prescribed N/A N/A Experienced any changes in pain level or No No management Left Footwear Regular Shoe Regular Shoe Right Footwear Regular Shoe Regular Shoe Pain Scale: 0-10 Numeric Is Patient Pain Free? Yes Yes WC - Nurse 1 - General Ulcer Measurement Start: 10/14/23 11:01 Freq: Status: Active Protocol: Activity Type Activity Date Activity User E-sign Co-sign Detail Recorded Client Recorded Date Recorded By Document 10/14/23 11:02 KW ; 10/14/23 11:17 KW Document 10/21/23 13:10 KW ; 10/21/23 13:12 KW 10/14/23 10/21/23 11:02 13:10 Wound Center Nurse 1 3-right leg -Current Size (cm) - Length 0.1 -Current Size (cm) - Width 0.1 -Current Size (cm) - Depth 0.1 -Total Square Cm 0.01 -Texture ([place]-wound Skin Appearance) Assessed -Moisture ([place]-wound Skin Appearance) Assessed,Dry/ Scaly -Color ([place]-wound Skin Appearance) Assessed, Hemosiderin Staining -Temperature ([place]-wound Skin No Abnormality Appearance) (Pt Warm) -Tenderness on Palpation ([place]-wound No Skin Appearance) -Ulcer Cleansing Rinsed/ Irrigated with Saline #1 LT LAT LE cluster -Current Size (cm) - Length 1.7 -Current Size (cm) - Width 1.6 -Current Size (cm) - Depth 0.2 -Total Square Cm 2.72 -Exudate Amt Medium -Exudate Type Serosanguineous -Wound Margin Distinct, Outline Attached -Granulation Amt Large (67-100%) -Granulation Quality Red -Necrosis Amt Small (1-33%) -Necrotic Tissue Type Adherent Slough -Texture ([place]leth-wound Skin Appearance) Assessed -Moisture ([place]leth-wound Skin Appearance) Maceration -Color ([place]th-wound Skin Appearance) Assessed, Erythema, Hemosiderin Staining -Temperature ([place]-wound Skin No Abnormality Appearance) (Pt Warm) -Tenderness on Palpation ([place]-wound No Skin Appearance) -Ulcer Cleansing Rinsed/ Irrigated with Saline -Foul Odor after Cleansing No -Anesthetic Used 5% Lidocaine Gel #4 lt lat leg inf -Current Size (cm) - Length 1 1.2 -Current Size (cm) - Width 0.4 1.6 -Current Size (cm) - Depth 0.1 0.2 -Total Square Cm 0.4 1.92 -Exudate Amt Small Small -Exudate Type Serosanguineous Serosanguineous -Wound Margin Distinct, Distinct, Outline Outline Attached Attached -Granulation Amt Large (67-100%) Medium (34-66%) -Granulation Quality [place] -Necrosis Amt Medium (34-66%) -Necrotic Tissue Type Adherent Slough -Texture ([place]leth-wound Skin Appearance) Assessed Assessed -Moisture ([place]-wound Skin Appearance) Assessed Assessed -Color ([place]th-wound Skin Appearance) Assessed, Assessed Erythema, Hemosiderin Staining -Temperature ([place]-wound Skin No Abnormality No Abnormality Appearance) (Pt Warm) (Pt Warm) -Tenderness on Palpation ([place]-wound No No Skin Appearance) -Ulcer Cleansing Rinsed/ Rinsed/ Irrigated with Irrigated with Saline Saline -Foul Odor after Cleansing No No -Anesthetic Used 5% Lidocaine 5% Lidocaine Gel Gel 2-leg posterior -Current Size (cm) - Length 1 0.5 -Current Size (cm) - Width 0.5 0.3 -Current Size (cm) - Depth 0.2 0.1 -Total Square Cm 0.5 0.15 -Exudate Amt Medium Small -Exudate Type Serosanguineous Serosanguineous -Wound Margin Distinct, Distinct, Outline Outline Attached Attached -Granulation Amt Large (67-100%) Medium (34-66%) -Granulation Quality [place] -Necrosis Amt Small (1-33%) Medium (34-66%) -Necrotic Tissue Type Adherent Slough Adherent Slough -Texture ([place]leth-wound Skin Appearance) Assessed Assessed -Moisture ([place]leth-wound Skin Appearance) Maceration Assessed -Color ([place]leth-wound Skin Appearance) Erythema, Assessed Hemosiderin Staining -Temperature ([place]-wound Skin No Abnormality No Abnormality Appearance) (Pt Warm) (Pt Warm) -Tenderness on Palpation ([place]leth-wound No No Skin Appearance) -Ulcer Cleansing Rinsed/ Rinsed/ Irrigated with Irrigated with Saline Saline -Foul Odor after Cleansing No No -Anesthetic Used 5% Lidocaine 5% Lidocaine Gel Gel Right Calf (cm) 36 Right Ankle (cm) 21.2 Left Calf (cm) 34.7 35 Left Ankle (cm) 23.2 22.2 WC - Nurse 2 - General Ulcer CM Notes Start: 10/14/23 11:01 Freq: Status: Active Protocol: Activity Type Activity Date Activity User E-sign Co-sign Detail Recorded Client Recorded Date Recorded By Document 10/14/23 11:35 JF 0000 10/14/23 11:41 JF Document 10/21/23 13:25 JF 000 10/21/23 13:30 JF 10/14/23 10/21/23 11:35 13:25 Wound Center Nurse 2 3-right leg -Correct Patient No -Correct Side, Site, Position No -Correct Procedure No -Procedure Performed No -Post Debridement (cm) - Length 0 -Post Debridement (cm) - Width 0 -Post Debridement (cm) - Depth 0 -Total Square (Post) (cm) 0 -Area of Debridement (cm) - Length 0 -Area of Debridement (cm) - Width 0 -Total Square (Area) (cm) 0 -Wound/Ulcer Outcome Healed- Epithelialized #1 LT LAT LE cluster -Correct Patient No -Correct Side, Site, Position No -Correct Procedure No -Procedure Performed No #4 lt lat leg inf -Time 11:35 13:27 -Correct Patient Yes Yes -Correct Side, Site, Position Yes Yes -Correct Procedure Yes Yes -Procedure Performed Yes Yes -Type of Procedure Debridement Debridement -Clinical Debridement Subcutaneous Subcutaneous -Tissue Removed Subcutaneous Subcutaneous -Post Debridement (cm) - Length 2.8 1.2 -Post Debridement (cm) - Width 2.1 1.3 -Post Debridement (cm) - Depth 0.1 0.1 -Total Square (Post) (cm) 5.88 1.56 -Area of Debridement (cm) - Length 2.8 1.2 -Area of Debridement (cm) - Width 2.1 1.3 -Total Square (Area) (cm) 5.88 1.56 -Tunneling No No -Undermining/Tunneling No No -Circular Undermining No No -Wound/Ulcer Outcome Not Healed -Ulcer Cleansing Rinsed/ Rinsed/ Irrigated with Irrigated with Saline Saline -Foul Odor after Cleansing No No -Bioengineered Tissue No No -Bleeding Controlled with Pressure Pressure -Treatment Response Procedure Procedure Tolerated Well Tolerated Well -Offloading No No -Debridement - Subq, 1st 20sq cm No No 2-leg posterior -Time 11:40 13:27 -Correct Patient Yes Yes -Correct Side, Site, Position Yes Yes -Correct Procedure Yes Yes -Procedure Performed Yes Yes -Type of Procedure Debridement Debridement -Clinical Debridement Subcutaneous Subcutaneous -Tissue Removed Subcutaneous Subcutaneous -Post Debridement (cm) - Length 1.0 0.5 -Post Debridement (cm) - Width 0.5 0.4 -Post Debridement (cm) - Depth 0.1 0.1 -Total Square (Post) (cm) 0.50 0.20 -Area of Debridement (cm) - Length 1.0 0.5 -Area of Debridement (cm) - Width 0.5 0.4 -Total Square (Area) (cm) 0.50 0.20 -Tunneling No No -Undermining/Tunneling No No -Circular Undermining No No -Wound/Ulcer Outcome Not Healed Not Healed -Ulcer Cleansing Rinsed/ Rinsed/ Irrigated with Irrigated with Saline Saline -Foul Odor after Cleansing No No -Bioengineered Tissue No No -Bleeding Controlled with Pressure Pressure -Treatment Response Procedure Procedure Tolerated Well Tolerated Well -Offloading No No -Debridement - Subq, 1st 20sq cm Yes Yes Pain Scale: 0-10 Numeric Is Patient Pain Free? Yes Yes WC - Nurse 3 - General Ulcer D/C NN Start: 10/14/23 11:01 Freq: Status: Active Protocol: Activity Type Activity Date Activity User E-sign Co-sign Detail Recorded Client Recorded Date Recorded By Document 10/14/23 11:48 KW 0000 10/14/23 11:51 KW Document 10/21/23 14:46 JF 000 10/21/23 14:47 JF 10/14/23 10/21/23 11:48 14:46 Wound Care Center Nurse 3 #4 lt lat leg inf -Ulcer Cleansing Rinsed/ Rinsed/ Irrigated with Irrigated with Saline Saline -Foul Odor after Cleansing No -Primary Dressing Applied C Hydrogel ($), C Hydrogel ($) NonAdherent Contact Layer -Primary Dressing Covered/Secured with Dry Gauze & Dry Gauze, Roll Gauze, Secured with Secured with Tape Tape 2-leg posterior -Ulcer Cleansing Rinsed/ Irrigated with Saline -Foul Odor after Cleansing No -Primary Dressing Applied NonAdherent Contact Layer -Other Dressing hydrogel -Primary Dressing Covered/Secured with Dry Gauze Dry Gauze, Secured with Tape Right -Tubular Bandage Single Layer Single Layer -Size of Tubigrip Used Size D Size D -Size D ($) 1 1 Left -Tubular Bandage Single Layer Single Layer -Size of Tubigrip Used Size D Size D -Size D ($) 1 1 Pain Scale: 0-10 Numeric Is Patient Pain Free? Yes Yes WC - Visit Discharge Discharge Condition Stable Stable Ambulatory Status Ambulatory,Cane Ambulatory Transportation Private Auto Private Auto Accompanied by Medication Reconcilliation completed & No Yes provided to patient/care provider Clinical Summary of Care Provided Yes Yes Assessment/Plan Assessment/Plan (1) Non-pressure chronic ulcer of other part of left lower leg with fat layer exposed: CODE(S): L97.822 - Non-pressure chronic ulcer of other part of left lower leg with fat layer exposed PLAN: Patient was examined and evaluated. All findings were discussed with the patient. All questions were answered to the patient's satisfaction. Excisional debridement down to and including subcutaneous tissue with a number 5 mm dermal curette to the left posterior leg without incident. Predebridement measurement was 0.4 x 0.3 x 0.1 cm. Postdebridement measurement is 0.5 x 0.4 x 0.1 cm. Excisional debridement down to and including subcutaneous tissue with a number 5 mm dermal curette to the left lateral leg without incident. Predebridement measurement was 1.0 x 1.2 x 0.1 cm. Postdebridement measurement is 1.2 x 1.3 x 0.1 cm. Left lower extremity are clean and patted dry. The ulceration was dressed with collagen, dry sterile dressing and a single-layer Tubigrip to the left lower extremity. Will begin authorization for skin graft substitute as this will aid in the patient's healing. The patient's ulceration shows no evidence of infection but shows evidence of delayed healing. Follow-up at the wound care center with Dr. Bal in 1 week. (2) Other specified peripheral vascular diseases: CODE(S): I73.89 - Other specified peripheral vascular diseases (3) DVT (deep venous thrombosis): CODE(S): I82.409 - Acute embolism and thrombosis of unspecified deep veins of unspecified lower extremity
[2023-10-28 13:17] VITALS: BP 127/61; PULSE 84; RESP 16; TEMP 36.1
--- NOTE | 2023-10-28 13:41 | PN.PCM_ITS ---
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 Patient is on her Eliquis but states that she has very fragile skin and has noticed bruising to the upper and lower extremity. She does admit to falling scratching her left arm. She also caused 2 lacerations with her fingernails to the right and left leg. She is taking her antibiotic as written. She noticed improvement to her wound. She denies any constitutional symptoms. No other pedal complaints at this time. Objective Data Objective Data Vital Signs: Vital Signs Temp Pulse Resp BP O2 Del Method 97 F L 84 16 127/61 H Room Air 10/28/23 13:10/28/23 13:10/28/23 13:10/28/23 13:10/21/23 13:10 Oxygen Delivery Method Room Air Physical Exam Narrative Vascular: DP and PT pulse are palpable to the bilateral lower extremity. Skin temperature gradient is warm to warm from proximal ankle to distal digits bilateral. Nonpitting edema appreciated bilateral lower extremity. Evidence of hemosiderin deposits are appreciated bilateral. Neurological: Light touch intact. Epicritic sensation is intact. Dermatological: Full-thickness ulceration to the left lateral leg measuring 0.9 x 0.8 x 0.1 cm. Wound base is granular nature with no sign of infection. 2 lacerations appreciated to the left and right leg stable with no sign of infection. Excision debridement down to and including subcutaneous tissue with a number 3 mm dermal curette to the left lateral full-thickness ulceration incident. Predebridement measurement was 0.7 x 0.6 x 0.1 cm. Postdebridement measurement is 0.9 x 0.8 x 0.1 cm. Musculoskeletal: Mild pain to palpation to the distal lateral aspect of the left leg. No pain with calf compression. Debridement Note Debridement Note Debridement Free Text: Excision debridement down to and including subcutaneous tissue with a number 3 mm dermal curette to the left lateral full-thickness ulceration incident. Predebridement measurement was 0.7 x 0.6 x 0.1 cm. Postdebridement measurement is 0.9 x 0.8 x 0.1 cm. Post-Debridement Measurements and Additional Note: Post-Debridement Measurements/Treatment WC - Nurse 1 - General Ulcer Assessment Start: 10/14/23 11:01 Freq: Status: Active Protocol: [id number] Activity Type Activity Date Activity User E-sign Co-sign Detail Recorded Client Recorded Date Recorded By Document 10/14/23 11:02 KW ; 10/14/23 11:17 KW Document 10/21/23 13:10 KW ; 10/21/23 13:12 KW Document 10/28/23 13:17 DL [email or web address] 10/28/23 13:22 DL 10/14/23 10/21/23 10/28/23 11:02 13:10 13:17 WC - Today's Visit Information Type of service Follow-up Visit Follow-up Visit Follow-up Visit (Physician/MERCHANT PATROLLER (Physician/MERCHANT PATROLLER (Physician/MERCHANT PATROLLER ) ) ) Arrival Mode Ambulatory,Cane Ambulatory,Cane Ambulatory Transfer Assistance None Accompanied by Patient Identification Verified (Name & Yes Yes Yes ) Patient Requires Transmission-Based No Precautions Vital Signs Temperature (97.8 F-99.1 F) 96.7 F L 96.9 F L 97 F L Temperature Source Temporal Temporal Temporal Pulse Rate (60-100) 68 90 84 Pulse Location Monitor Monitor Monitor Respiratory Rate (12-18) 18 18 16 Respiratory rate source Observation Observation Observation Oxygen Delivery Method Room Air Room Air Blood Pressure (90/60-120/80) 116/65 134/70 H 127/61 H Blood Pressure Mean (mm Hg) 82 91 83 Source Monitor Monitor Monitor Position Semi-Fowlers Semi-Fowlers Blood Pressure Location Left Arm Left Arm History Since Last Visit- (Skip if this is Patient's initial visit) Have you changed medications since your No No No last visit? Any new allergies or adverse reactions No No No Had a fall/change in ADL's that may No No No increase risk of falls Signs or symptoms of abuse and/or No No No neglect since last visit Have you been in the hospital since your No No No last visit? Has dressing in place as prescribed Yes Yes Yes Has compression in place as prescribed Yes Yes Yes Has offloadiing in place as prescribed N/A N/A N/A Experienced any changes in pain level or No No No management Left Footwear Regular Shoe Regular Shoe Right Footwear Regular Shoe Regular Shoe Pain Scale: 0-10 Numeric Is Patient Pain Free? Yes Yes Yes WC - Nurse 1 - General Ulcer Measurement Start: 10/14/23 11:01 Freq: Status: Active Protocol: Activity Type Activity Date Activity User E-sign Co-sign Detail Recorded Client Recorded Date Recorded By Document 10/14/23 11:02 KW ; 10/14/23 11:17 KW Document 10/21/23 13:10 KW ; 10/21/23 13:12 KW Document 10/28/23 13:17 DL [email or web address] 10/28/23 13:22 DL Edit Result 10/28/23 13:17 DL (1) [email or web address] 10/28/23 13:23 DL (1) Right Calf (cm) => 35.5 Right Ankle (cm) => 22.5 10/14/23 10/21/23 10/28/23 11:02 13:10 13:17 Wound Center Nurse 1 3-right leg -Current Size (cm) - Length 0.1 -Current Size (cm) - Width 0.1 -Current Size (cm) - Depth 0.1 -Total Square Cm 0.01 -Texture (Arleth-wound Skin Appearance) Assessed -Moisture (Arleth-wound Skin Appearance) Assessed,Dry/ Scaly -Color (Arleth-wound Skin Appearance) Assessed, Hemosiderin Staining -Temperature (Arleth-wound Skin No Abnormality Appearance) (Pt Warm) -Tenderness on Palpation (Arleth-wound No Skin Appearance) -Ulcer Cleansing Rinsed/ Irrigated with Saline #1 LT LAT LE cluster -Current Size (cm) - Length 1.7 -Current Size (cm) - Width 1.6 -Current Size (cm) - Depth 0.2 -Total Square Cm 2.72 -Exudate Amt Medium -Exudate Type Serosanguineous -Wound Margin Distinct, Outline Attached -Granulation Amt Large (67-100%) -Granulation Quality Red -Necrosis Amt Small (1-33%) -Necrotic Tissue Type Adherent Slough -Texture (Arleth-wound Skin Appearance) Assessed -Moisture (Arleth-wound Skin Appearance) Maceration -Color (Arleth-wound Skin Appearance) Assessed, Erythema, Hemosiderin Staining -Temperature (Arleth-wound Skin No Abnormality Appearance) (Pt Warm) -Tenderness on Palpation (Arleth-wound No Skin Appearance) -Ulcer Cleansing Rinsed/ Irrigated with Saline -Foul Odor after Cleansing No -Anesthetic Used 5% Lidocaine Gel #4 lt lat leg inf -Current Size (cm) - Length 1 1.2 0.4 -Current Size (cm) - Width 0.4 1.6 0.5 -Current Size (cm) - Depth 0.1 0.2 0.1 -Total Square Cm 0.4 1.92 0.20 -Exudate Amt Small Small Small -Exudate Type Serosanguineous Serosanguineous Serosanguineous -Wound Margin Distinct, Distinct, Distinct, Outline Outline Outline Attached Attached Attached -Granulation Amt Large (67-100%) Medium (34-66%) Small (1-33%) -Granulation Quality Red [place] Red -Necrosis Amt Medium (34-66%) Small (1-33%) -Necrotic Tissue Type Adherent Slough Adherent Slough -Structure Exposed N/A -Texture (Arleth-wound Skin Appearance) Assessed Assessed Scarring -Moisture (Arleth-wound Skin Appearance) Assessed Assessed No Abnormality -Color (Arleth-wound Skin Appearance) Assessed, Assessed Hemosiderin Erythema, Staining Hemosiderin Staining -Temperature (Arleth-wound Skin No Abnormality No Abnormality No Abnormality Appearance) (Pt Warm) (Pt Warm) (Pt Warm) -Tenderness on Palpation (Arleth-wound No No No Skin Appearance) -Ulcer Cleansing Rinsed/ Rinsed/ Soap and Water Irrigated with Irrigated with Saline Saline -Foul Odor after Cleansing No No No -Anesthetic Used 5% Lidocaine 5% Lidocaine 5% Lidocaine Gel Gel Gel 2-leg posterior -Current Size (cm) - Length 1 0.5 0.1 -Current Size (cm) - Width 0.5 0.3 0.1 -Current Size (cm) - Depth 0.2 0.1 0.1 -Total Square Cm 0.5 0.15 0.01 -Exudate Amt Medium Small None Present -Exudate Type Serosanguineous Serosanguineous -Wound Margin Distinct, Distinct, Indistinct, Non Outline Outline -Visible Attached Attached -Granulation Amt Large (67-100%) Medium (34-66%) Large (67-100%) -Granulation Quality Red [place] -Necrosis Amt Small (1-33%) Medium (34-66%) None Present (0 %) -Necrotic Tissue Type Adherent Slough Adherent Slough -Structure Exposed N/A -Texture (Arleth-wound Skin Appearance) Assessed Assessed Scarring -Moisture (Arleth-wound Skin Appearance) Maceration Assessed No Abnormality -Color (Arleth-wound Skin Appearance) Erythema, Assessed Hemosiderin Hemosiderin Staining Staining -Temperature (Arleth-wound Skin No Abnormality No Abnormality No Abnormality Appearance) (Pt Warm) (Pt Warm) (Pt Warm) -Tenderness on Palpation (Arleth-wound No No No Skin Appearance) -Ulcer Cleansing Rinsed/ Rinsed/ Rinsed/ Irrigated with Irrigated with Irrigated with Saline Saline Saline -Foul Odor after Cleansing No No No -Anesthetic Used 5% Lidocaine 5% Lidocaine Gel Gel Right Calf (cm) 36 35.5 Right Ankle (cm) 21.2 22.5 Left Calf (cm) 34.7 35 35 Left Ankle (cm) 23.2 22.2 22.2 WC - Nurse 2 - General Ulcer CM Notes Start: 10/14/23 11:01 Freq: Status: Active Protocol: Activity Type Activity Date Activity User E-sign Co-sign Detail Recorded Client Recorded Date Recorded By Document 10/14/23 11:35 0000 10/14/23 11:41 Document 10/21/23 13:25 000 10/21/23 13:30 Document 10/28/23 13:30 [facility] 10/28/23 13:34 10/14/23 10/21/23 10/28/23 11:35 13:25 13:30 Wound Center Nurse 2 3-right leg -Correct Patient No -Correct Side, Site, Position No -Correct Procedure No -Procedure Performed No -Post Debridement (cm) - Length 0 -Post Debridement (cm) - Width 0 -Post Debridement (cm) - Depth 0 -Total Square (Post) (cm) 0 -Area of Debridement (cm) - Length 0 -Area of Debridement (cm) - Width 0 -Total Square (Area) (cm) 0 -Wound/Ulcer Outcome Healed- Epithelialized #1 LT LAT LE cluster -Correct Patient No -Correct Side, Site, Position No -Correct Procedure No -Procedure Performed No #4 lt lat leg inf -Time 11:35 13:27 13:31 -Correct Patient Yes Yes Yes -Correct Side, Site, Position Yes Yes Yes -Correct Procedure Yes Yes Yes -Procedure Performed Yes Yes Yes -Type of Procedure Debridement Debridement Debridement -Clinical Debridement Subcutaneous Subcutaneous Subcutaneous -Tissue Removed Subcutaneous Subcutaneous Subcutaneous -Post Debridement (cm) - Length 2.8 1.2 0.9 -Post Debridement (cm) - Width 2.1 1.3 0.8 -Post Debridement (cm) - Depth 0.1 0.1 0.1 -Total Square (Post) (cm) 5.88 1.56 0.72 -Area of Debridement (cm) - Length 2.8 1.2 0.9 -Area of Debridement (cm) - Width 2.1 1.3 0.8 -Total Square (Area) (cm) 5.88 1.56 0.72 -Tunneling No No No -Undermining/Tunneling No No No -Circular Undermining No No No -Wound/Ulcer Outcome Not Healed Not Healed -Ulcer Cleansing Rinsed/ Rinsed/ Rinsed/ Irrigated with Irrigated with Irrigated with Saline Saline Saline -Foul Odor after Cleansing No No No -Bioengineered Tissue No No -Bleeding Controlled with Pressure Pressure Pressure -Treatment Response Procedure Procedure Procedure Tolerated Well Tolerated Well Tolerated Well -Offloading No No -Debridement - Subq, 1st 20sq cm No No Yes 2-leg posterior -Time 11:40 13:27 13:31 -Correct Patient Yes Yes Yes -Correct Side, Site, Position Yes Yes Yes -Correct Procedure Yes Yes -Procedure Performed Yes Yes -Type of Procedure Debridement Debridement -Clinical Debridement Subcutaneous Subcutaneous -Tissue Removed Subcutaneous Subcutaneous -Post Debridement (cm) - Length 1.0 0.5 -Post Debridement (cm) - Width 0.5 0.4 -Post Debridement (cm) - Depth 0.1 0.1 -Total Square (Post) (cm) 0.50 0.20 -Area of Debridement (cm) - Length 1.0 0.5 -Area of Debridement (cm) - Width 0.5 0.4 -Total Square (Area) (cm) 0.50 0.20 -Tunneling No No -Undermining/Tunneling No No -Circular Undermining No No -Wound/Ulcer Outcome Not Healed Not Healed Healed- Epithelialized -Ulcer Cleansing Rinsed/ Rinsed/ Irrigated with Irrigated with Saline Saline -Foul Odor after Cleansing No No -Bioengineered Tissue No No -Bleeding Controlled with Pressure Pressure -Treatment Response Procedure Procedure Tolerated Well Tolerated Well -Offloading No No -Debridement - Subq, 1st 20sq cm Yes Yes Pain Scale: 0-10 Numeric Is Patient Pain Free? Yes Yes Yes - Nurse 3 - General Ulcer D/C NN Start: 10/14/23 11:01 Freq: Status: Active Protocol: Activity Type Activity Date Activity User E-sign Co-sign Detail Recorded Client Recorded Date Recorded By Document 10/14/23 11:48 KW 0000 10/14/23 11:51 KW Document 10/21/23 14:46 JF 000 10/21/23 14:47 JF 10/14/23 10/21/23 11:48 14:46 Wound Care Center Nurse 3 #4 lt lat leg inf -Ulcer Cleansing Rinsed/ Rinsed/ Irrigated with Irrigated with Saline Saline -Foul Odor after Cleansing No -Primary Dressing Applied C Hydrogel ($), C Hydrogel ($) NonAdherent Contact Layer -Primary Dressing Covered/Secured with Dry Gauze & Dry Gauze, Roll Gauze, Secured with Secured with Tape Tape 2-leg posterior -Ulcer Cleansing Rinsed/ Irrigated with Saline -Foul Odor after Cleansing No -Primary Dressing Applied NonAdherent Contact Layer -Other Dressing hydrogel -Primary Dressing Covered/Secured with Dry Gauze Dry Gauze, Secured with Tape Right -Tubular Bandage Single Layer Single Layer -Size of Tubigrip Used Size D Size D -Size D ($) 1 1 Left -Tubular Bandage Single Layer Single Layer -Size of Tubigrip Used Size D Size D -Size D ($) 1 1 Pain Scale: 0-10 Numeric Is Patient Pain Free? Yes Yes - Visit Discharge Discharge Condition Stable Stable Ambulatory Status Ambulatory,Cane Ambulatory Transportation Private Auto Private Auto Accompanied by Medication Reconcilliation completed & No Yes provided to patient/care provider Clinical Summary of Care Provided Yes Yes Assessment/Plan Assessment/Plan (1) Non-pressure chronic ulcer of other part of left lower leg with fat layer exposed: CODE(S): L97.822 - Non-pressure chronic ulcer of other part of left lower leg with fat layer exposed PLAN: Patient was examined and evaluated. All findings were discussed with the patient. All questions were answered to the patient's satisfaction. Excision debridement down to and including subcutaneous tissue with a number 3 mm dermal curette to the left lateral full-thickness ulceration incident. Predebridement measurement was 0.7 x 0.6 x 0.1 cm. Postdebridement measurement is 0.9 x 0.8 x 0.1 cm. Left lower extremities were cleaned and patted dry. Hydrogel was applied to the full-thickness ulceration followed by dry sterile dressing. The proximal laceration to the left leg was dressed with triple antibiotic and a Band-Aid. Tubigrip was donned to left lower extremity. Attention was directed to the right leg laceration which was dressed with triple antibiotic and a Band-Aid. Tubigrip donned. Patient will continue antibiotic as written. Educated the patient to be aware of her surroundings so she does not fall and cause any additional trauma to her upper and lower extremity. Follow-up at the wound care center with Dr. Bal in 1 week. (2) Laceration of left leg: CODE(S): S81.812A - Laceration without foreign body, left lower leg, initial encounter (3) Laceration of right leg excluding thigh: CODE(S): S81.811A - Laceration without foreign body, right lower leg, initial encounter (4) Other specified peripheral vascular diseases: CODE(S): I73.89 - Other specified peripheral vascular diseases (5) DVT (deep venous thrombosis): CODE(S): I82.409 - Acute embolism and thrombosis of unspecified deep veins of unspecified lower extremity
[2023-11-04 13:07] VITALS: BP 103/60; PULSE 81; RESP 18; TEMP 36.2
--- NOTE | 2023-11-04 13:32 | PN.PCM_ITS ---
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 Ribera is an 83-year-old female presenting to the wound care center today fory follow-up evaluation of full-thickness wound to left leg. She admits improvement to her wound. She has been doing dressing changes as instructed. She admits to falling outside striking her arm and cutting it. She has been doing home wound care to her left arm. Denies any infection. She did not hit her head or pass out. She did not go to the emergency room for evaluation. Den ies constitutional symptoms or any other pedal complaints at this time. Objective Data Objective Data Vital Signs: Vital Signs Temp Pulse Resp BP O2 Del Method 97.1 F L 81 18 103/60 Room Air 11/04/23 13:07 11/04/23 13:07 11/04/23 13:07 11/04/23 13:07 11/04/23 13:07 Oxygen Delivery Method Room Air Physical Exam Narrative Vascular: DP and PT pulse are palpable to the bilateral lower extremity. Skin temperature gradient is warm to warm from proximal ankle to distal digits bilateral. Nonpitting edema appreciated bilateral lower extremity. Evidence of hemosiderin deposits are appreciated bilateral. Neurological: Light touch intact. Epicritic sensation is intact. Dermatological: Full-thickness ulceration to the left lateral leg measuring 0.9 x 0.7 x 0.1 cm. Wound base is granular nature with no sign of infection. 2 lacerations appreciated to the left and right leg stable with no sign of infection. Excision debridement down to and including subcutaneous tissue with a number 3 mm dermal curette to the left lateral full-thickness ulceration incident. Predebridement measurement was 0.8 x 0.6 x 0.1 cm. Postdebridement measurement is 0.9 x 0.7 x 0.1 cm. Musculoskeletal: Mild pain to palpation to the distal lateral aspect of the left leg. No pain with calf compression. Debridement Note Debridement Note Debridement Free Text: Excision debridement down to and including subcutaneous tissue with a number 3 mm dermal curette to the left lateral full-thickness ulceration incident. Predebridement measurement was 0.8 x 0.6 x 0.1 cm. Postde bridement measurement is 0.9 x 0.7 x 0.1 cm. Post-Debridement Measurements and Additional Note: Post-Debridement Measurements/Treatment WC - Nurse 1 - General Ulcer Assessment Start: 10/14/23 11:01 Freq: Status: Active Protocol: [id number] Activity Type Activity Date Activity User E-sign Co-sign Detail Recorded Client Recorded Date Recorded By Document 10/14/23 11:02 KW ; 10/14/23 11:17 KW Document 10/21/23 13:10 KW ; 10/21/23 13:12 KW Document 10/28/23 13:17 DL [email or web address] 10/28/23 13:22 DL Document 11/04/23 13:07 KW d 11/04/23 13:17 KW 10/14/23 10/21/23 10/28/23 11:02 13:10 13:17 - Today's Visit Information Type of service Follow-up Visit Follow-up Visit Follow-up Visit (Physician/GEOPHYSICS SCIENTIST (Physician/GEOPHYSICS SCIENTIST (Physician/GEOPHYSICS SCIENTIST ) ) ) Arrival Mode Ambulatory,Cane Ambulatory,Cane Ambulatory Transfer Assistance None Accompanied by Patient Identification Verified (Name & Yes Yes Yes ) Patient Requires Transmission-Based No Precautions Vital Signs Temperature (97.8 F-99.1 F) 96.7 F L 96.9 F L 97 F L Temperature Source Temporal Temporal Temporal Pulse Rate (60-100) 68 90 84 Pulse Location Monitor Monitor Monitor Respiratory Rate (12-18) 18 18 16 Respiratory rate source Observation Observation Observation Oxygen Delivery Method Room Air Room Air Blood Pressure (90/60-120/80) 116/65 134/70 H 127/61 H Blood Pressure Mean (mm Hg) 82 91 83 Source Monitor Monitor Monitor Position Semi-Fowlers Semi-Fowlers Blood Pressure Location Left Arm Left Arm History Since Last Visit- (Skip if this is Patient's initial visit) Have you changed medications since your No No No last visit? Any new allergies or adverse reactions No No No Had a fall/change in ADL's that may No No No increase risk of falls Signs or symptoms of abuse and/or No No No neglect since last visit Have you been in the hospital since your No No No last visit? Has dressing in place as prescribed Yes Yes Yes Has compression in place as prescribed Yes Yes Yes Has offloadiing in place as prescribed N/A N/A N/A Experienced any changes in pain level or No No No management Left Footwear Regular Shoe Regular Shoe Right Footwear Regular Shoe Regular Shoe Pain Scale: 0-10 Numeric Is Patient Pain Free? Yes Yes Yes 11/04/23 13:07 WC - Today's Visit Information Type of service Follow-up Visit (Physician/GEOPHYSICS SCIENTIST ) Arrival Mode Ambulatory,Cane Transfer Assistance Accompanied by Patient Identification Verified (Name & Yes ) Patient Requires Transmission-Based No Precautions Vital Signs Temperature (97.8 F-99.1 F) 97.1 F L Temperature Source Temporal Pulse Rate (60-100) 81 Pulse Location Monitor Respiratory Rate (12-18) 18 Respiratory rate source Observation Oxygen Delivery Method Room Air Blood Pressure (90/60-120/80) 103/60 Blood Pressure Mean (mm Hg) 74 Source Monitor Position Semi-Fowlers Blood Pressure Location Left Arm History Since Last Visit- (Skip if this is Patient's initial visit) Have you changed medications since your No last visit? Any new allergies or adverse reactions No Had a fall/change in ADL's that may No increase risk of falls Signs or symptoms of abuse and/or No neglect since last visit Have you been in the hospital since your No last visit? Has dressing in place as prescribed Yes Has compression in place as prescribed Yes Has offloadiing in place as prescribed N/A Experienced any changes in pain level or No management Left Footwear Regular Shoe Right Footwear Regular Shoe Pain Scale: 0-10 Numeric Is Patient Pain Free? Yes - Nurse 1 - General Ulcer Measurement Start: 10/14/23 11:01 Freq: Status: Active Protocol: Activity Type Activity Date Activity User E-sign Co-sign Detail Recorded Client Recorded Date Recorded By Document 10/14/23 11:02 KW ; 10/14/23 11:17 KW Document 10/21/23 13:10 KW ; 10/21/23 13:12 KW Document 10/28/23 13:17 DL [email or web address] 10/28/23 13:22 DL Edit Result 10/28/23 13:17 DL (1) [email or web address] 10/28/23 13:23 DL Document 11/04/23 13:07 KW d 11/04/23 13:17 KW (1) Right Calf (cm) => 35.5 Right Ankle (cm) => 22.5 10/14/23 10/21/23 10/28/23 11:02 13:10 13:17 Wound Center Nurse 1 3-right leg -Current Size (cm) - Length 0.1 -Current Size (cm) - Width 0.1 -Current Size (cm) - Depth 0.1 -Total Square Cm 0.01 -Texture (Arleth-wound Skin Appearance) Assessed -Moisture ([place]-wound Skin Appearance) Assessed,Dry/ Scaly -Color ([place]-wound Skin Appearance) Assessed, Hemosiderin Staining -Temperature ([place]-wound Skin No Abnormality Appearance) (Pt Warm) -Tenderness on Palpation ([place]leth-wound No Skin Appearance) -Ulcer Cleansing Rinsed/ Irrigated with Saline 2-leg posterior -Current Size (cm) - Length 1 0.5 0.1 -Current Size (cm) - Width 0.5 0.3 0.1 -Current Size (cm) - Depth 0.2 0.1 0.1 -Total Square Cm 0.5 0.15 0.01 -Epithelialization -Exudate Amt Medium Small None Present -Exudate Type Serosanguineous Serosanguineous -Wound Margin Distinct, Distinct, Indistinct, Non Outline Outline -Visible Attached Attached -Granulation Amt Large (67-100%) Medium (34-66%) Large (67-100%) -Granulation Quality [place] -Necrosis Amt Small (1-33%) Medium (34-66%) None Present (0 %) -Necrotic Tissue Type Adherent Slough Adherent Slough -Structure Exposed N/A -Texture (Ral[place]-wound Skin Appearance) Assessed Assessed Scarring -Moisture ([place]leth-wound Skin Appearance) Maceration Assessed No Abnormality -Color ([place]-wound Skin Appearance) Erythema, Assessed Hemosiderin Hemosiderin Staining Staining -Temperature ([place]-wound Skin No Abnormality No Abnormality No Abnormality Appearance) (Pt Warm) (Pt Warm) (Pt Warm) -Tenderness on Palpation ([place]le[place]-wound No No No Skin Appearance) -Ulcer Cleansing Rinsed/ Rinsed/ Rinsed/ Irrigated with Irrigated with Irrigated with Saline Saline Saline -Foul Odor after Cleansing No No No -Anesthetic Used 5% Lidocaine 5% Lidocaine Gel Gel #1 LT LAT LE cluster -Current Size (cm) - Length 1.7 -Current Size (cm) - Width 1.6 -Current Size (cm) - Depth 0.2 -Total Square Cm 2.72 -Exudate Amt Medium -Exudate Type Serosanguineous -Wound Margin Distinct, Outline Attached -Granulation Amt Large (67-100%) -Granulation Quality Red -Necrosis Amt Small (1-33%) -Necrotic Tissue Type Adherent Slough -Texture ([place]le[place]-wound Skin Appearance) Assessed -Moisture ([place]-wound Skin Appearance) Maceration -Color ([place]-wound Skin Appearance) Assessed, Erythema, Hemosiderin Staining -Temperature ([place]-wound Skin No Abnormality Appearance) (Pt Warm) -Tenderness on Palpation ([place]-wound No Skin Appearance) -Ulcer Cleansing Rinsed/ Irrigated with Saline -Foul Odor after Cleansing No -Anesthetic Used 5% Lidocaine Gel #4 lt lat leg inf -Current Size (cm) - Length 1 1.2 0.4 -Current Size (cm) - Width 0.4 1.6 0.5 -Current Size (cm) - Depth 0.1 0.2 0.1 -Total Square Cm 0.4 1.92 0.20 -Photo Taken -Epithelialization -Undermining/Tunneling -Circular Undermining -Exudate Amt Small Small Small -Exudate Type Serosanguineous Serosanguineous Serosanguineous -Wound Margin Distinct, Distinct, Distinct, Outline Outline Outline Attached Attached Attached -Granulation Amt Large (67-100%) Medium (34-66%) Small (1-33%) -Granulation Quality Red [place] Red -Slough/Fibrin -Necrosis Amt Medium (34-66%) Small (1-33%) -Necrotic Tissue Type Adherent Slough Adherent Slough -Structure Exposed N/A -Texture (Arle[place]-wound Skin Appearance) Assessed Assessed Scarring -Moisture (Arleth-wound Skin Appearance) Assessed Assessed No Abnormality -Color ([place]-wound Skin Appearance) Assessed, Assessed Hemosiderin Erythema, Staining Hemosiderin Staining -Temperature ([place]-wound Skin No Abnormality No Abnormality No Abnormality Appearance) (Pt Warm) (Pt Warm) (Pt Warm) -Tenderness on Palpation ([place]le[place]-wound No No No Skin Appearance) -Ulcer Cleansing Rinsed/ Rinsed/ Soap and Water Irrigated with Irrigated with Saline Saline -Foul Odor after Cleansing No No No -Anesthetic Used 5% Lidocaine 5% Lidocaine 5% Lidocaine Gel Gel Gel Right Calf (cm) 36 35.5 Right Ankle (cm) 21.2 22.5 Left Calf (cm) 34.7 35 35 Left Ankle (cm) 23.2 22.2 22.2 11/04/23 13:07 Wound Center Nurse 1 3-right leg -Current Size (cm) - Length -Current Size (cm) - Width -Current Size (cm) - Depth -Total Square Cm -Texture (Arleth-wound Skin Appearance) -Moisture (Arleth-wound Skin Appearance) -Color (Arleth-wound Skin Appearance) -Temperature (Arleth-wound Skin Appearance) -Tenderness on Palpation (Arleth-wound Skin Appearance) -Ulcer Cleansing 2-leg posterior -Current Size (cm) - Length 0 -Current Size (cm) - Width 0 -Current Size (cm) - Depth 0 -Total Square Cm 0 -Epithelialization Large 67-100% -Exudate Amt -Exudate Type -Wound Margin -Granulation Amt -Granulation Quality -Necrosis Amt -Necrotic Tissue Type -Structure Exposed -Texture (Arleth-wound Skin Appearance) -Moisture (Arleth-wound Skin Appearance) -Color (Arleth-wound Skin Appearance) -Temperature ([place]leth-wound Skin Appearance) -Tenderness on Palpation (Arleth-wound Skin Appearance) -Ulcer Cleansing -Foul Odor after Cleansing -Anesthetic Used #1 LT LAT LE cluster -Current Size (cm) - Length -Current Size (cm) - Width -Current Size (cm) - Depth -Total Square Cm -Exudate Amt -Exudate Type -Wound Margin -Granulation Amt -Granulation Quality -Necrosis Amt -Necrotic Tissue Type -Texture (Arleth-wound Skin Appearance) -Moisture (Arleth-wound Skin Appearance) -Color (Arleth-wound Skin Appearance) -Temperature (Arleth-wound Skin Appearance) -Tenderness on Palpation (Arleth-wound Skin Appearance) -Ulcer Cleansing -Foul Odor after Cleansing -Anesthetic Used #4 lt lat leg inf -Current Size (cm) - Length 0.9 -Current Size (cm) - Width 0.8 -Current Size (cm) - Depth 0.2 -Total Square Cm 0.72 -Photo Taken Yes -Epithelialization None Present -Undermining/Tunneling No -Circular Undermining No -Exudate Amt Small -Exudate Type Serosanguineous -Wound Margin Flat & Intact -Granulation Amt Large (67-100%) -Granulation Quality Red -Slough/Fibrin No -Necrosis Amt -Necrotic Tissue Type -Structure Exposed N/A -Texture (Arleth-wound Skin Appearance) No Abnormality -Moisture (Arleth-wound Skin Appearance) No Abnormality -Color (Arleth-wound Skin Appearance) No Abnormality -Temperature ([place]le[place]-wound Skin No Abnormality Appearance) (Pt Warm) -Tenderness on Palpation (Arleth-wound No Skin Appearance) -Ulcer Cleansing Rinsed/ Irrigated with Saline -Foul Odor after Cleansing No -Anesthetic Used 5% Lidocaine Gel Right Calf (cm) Right Ankle (cm) Left Calf (cm) 35 Left Ankle (cm) 22 - Nurse 2 - General Ulcer CM Notes Start: 10/14/23 11:01 Freq: Status: Active Protocol: Activity Type Activity Date Activity User E-sign Co-sign Detail Recorded Client Recorded Date Recorded By Document 10/14/23 11:35 0000 10/14/23 11:41 Document 10/21/23 13:25 000 10/21/23 13:30 Document 10/28/23 13:30 [facility] 10/28/23 13:34 Document 11/04/23 13:25 000 11/04/23 13:26 10/14/23 10/21/23 10/28/23 11:35 13:25 13:30 Wound Center Nurse 2 3-right leg -Correct Patient No -Correct Side, Site, Position No -Correct Procedure No -Procedure Performed No -Post Debridement (cm) - Length 0 -Post Debridement (cm) - Width 0 -Post Debridement (cm) - Depth 0 -Total Square (Post) (cm) 0 -Area of Debridement (cm) - Length 0 -Area of Debridement (cm) - Width 0 -Total Square (Area) (cm) 0 -Wound/Ulcer Outcome Healed- Epithelialized 2-leg posterior -Time 11:40 13:27 13:31 -Correct Patient Yes Yes Yes -Correct Side, Site, Position Yes Yes Yes -Correct Procedure Yes Yes -Procedure Performed Yes Yes -Type of Procedure Debridement Debridement -Clinical Debridement Subcutaneous Subcutaneous -Tissue Removed Subcutaneous Subcutaneous -Post Debridement (cm) - Length 1.0 0.5 -Post Debridement (cm) - Width 0.5 0.4 -Post Debridement (cm) - Depth 0.1 0.1 -Total Square (Post) (cm) 0.50 0.20 -Area of Debridement (cm) - Length 1.0 0.5 -Area of Debridement (cm) - Width 0.5 0.4 -Total Square (Area) (cm) 0.50 0.20 -Tunneling No No -Undermining/Tunneling No No -Circular Undermining No No -Wound/Ulcer Outcome Not Healed Not Healed Healed- Epithelialized -Ulcer Cleansing Rinsed/ Rinsed/ Irrigated with Irrigated with Saline Saline -Foul Odor after Cleansing No No -Bioengineered Tissue No No -Bleeding Controlled with Pressure Pressure -Treatment Response Procedure Procedure Tolerated Well Tolerated Well -Offloading No No -Debridement - Subq, 1st 20sq cm Yes Yes #1 LT LAT LE cluster -Correct Patient No -Correct Side, Site, Position No -Correct Procedure No -Procedure Performed No #4 lt lat leg inf -Time 11:35 13:27 13:31 -Correct Patient Yes Yes Yes -Correct Side, Site, Position Yes Yes Yes -Correct Procedure Yes Yes Yes -Procedure Performed Yes Yes Yes -Type of Procedure Debridement Debridement Debridement -Clinical Debridement Subcutaneous Subcutaneous Subcutaneous -Tissue Removed Subcutaneous Subcutaneous Subcutaneous -Post Debridement (cm) - Length 2.8 1.2 0.9 -Post Debridement (cm) - Width 2.1 1.3 0.8 -Post Debridement (cm) - Depth 0.1 0.1 0.1 -Total Square (Post) (cm) 5.88 1.56 0.72 -Area of Debridement (cm) - Length 2.8 1.2 0.9 -Area of Debridement (cm) - Width 2.1 1.3 0.8 -Total Square (Area) (cm) 5.88 1.56 0.72 -Tunneling No No No -Undermining/Tunneling No No No -Circular Undermining No No No -Wound/Ulcer Outcome Not Healed Not Healed -Ulcer Cleansing Rinsed/ Rinsed/ Rinsed/ Irrigated with Irrigated with Irrigated with Saline Saline Saline -Foul Odor after Cleansing No No No -Bioengineered Tissue No No -Bleeding Controlled with Pressure Pressure Pressure -Treatment Response Procedure Procedure Procedure Tolerated Well Tolerated Well Tolerated Well -Offloading No No -Debridement - Subq, 1st 20sq cm No No Yes Pain Scale: 0-10 Numeric Is Patient Pain Free? Yes Yes Yes 11/04/23 13:25 Wound Center Nurse 2 3-right leg -Correct Patient -Correct Side, Site, Position -Correct Procedure -Procedure Performed -Post Debridement (cm) - Length -Post Debridement (cm) - Width -Post Debridement (cm) - Depth -Total Square (Post) (cm) -Area of Debridement (cm) - Length -Area of Debridement (cm) - Width -Total Square (Area) (cm) -Wound/Ulcer Outcome 2-leg posterior -Time -Correct Patient No -Correct Side, Site, Position No -Correct Procedure No -Procedure Performed No -Type of Procedure -Clinical Debridement -Tissue Removed -Post Debridement (cm) - Length 0 -Post Debridement (cm) - Width 0 -Post Debridement (cm) - Depth 0 -Total Square (Post) (cm) 0 -Area of Debridement (cm) - Length 0 -Area of Debridement (cm) - Width 0 -Total Square (Area) (cm) 0 -Tunneling -Undermining/Tunneling -Circular Undermining -Wound/Ulcer Outcome Healed- Epithelialized -Ulcer Cleansing -Foul Odor after Cleansing -Bioengineered Tissue -Bleeding Controlled with -Treatment Response -Offloading -Debridement - Subq, 1st 20sq cm #1 LT LAT LE cluster -Correct Patient -Correct Side, Site, Position -Correct Procedure -Procedure Performed #4 lt lat leg inf -Time 13:25 -Correct Patient Yes -Correct Side, Site, Position Yes -Correct Procedure Yes -Procedure Performed Yes -Type of Procedure Debridement -Clinical Debridement Subcutaneous -Tissue Removed Subcutaneous -Post Debridement (cm) - Length 0.9 -Post Debridement (cm) - Width 0.7 -Post Debridement (cm) - Depth 0.1 -Total Square (Post) (cm) 0.63 -Area of Debridement (cm) - Length 0.9 -Area of Debridement (cm) - Width 0.7 -Total Square (Area) (cm) 0.63 -Tunneling No -Undermining/Tunneling No -Circular Undermining No -Wound/Ulcer Outcome Not Healed -Ulcer Cleansing Rinsed/ Irrigated with Saline -Foul Odor after Cleansing No -Bioengineered Tissue No -Bleeding Controlled with Pressure -Treatment Response Procedure Tolerated Well -Offloading No -Debridement - Subq, 1st 20sq cm Yes Pain Scale: 0-10 Numeric Is Patient Pain Free? Yes WC - Nurse 3 - General Ulcer D/C NN Start: 10/14/23 11:01 Freq: Status: Active Protocol: Activity Type Activity Date Activity User E-sign Co-sign Detail Recorded Client Recorded Date Recorded By Document 10/14/23 11:48 KW 0000 10/14/23 11:51 KW Document 10/21/23 14:46 JF 000 10/21/23 14:47 JF Document 10/28/23 13:53 [facility] 10/28/23 13:55 10/14/23 10/21/23 10/28/23 11:48 14:46 13:53 Wound Care Center Nurse 3 2-leg posterior -Ulcer Cleansing Rinsed/ Irrigated with Saline -Foul Odor after Cleansing No -Primary Dressing Applied NonAdherent Contact Layer -Other Dressing hydrogel -Primary Dressing Covered/Secured with Dry Gauze Dry Gauze, Secured with Tape #4 lt lat leg inf -Ulcer Cleansing Rinsed/ Rinsed/ Not Cleansed Irrigated with Irrigated with Saline Saline -Foul Odor after Cleansing No No -Negative Pressure Wound Therapy N/A -Primary Dressing Applied C Hydrogel ($), C Hydrogel ($) NonAdherent Contact Layer -Primary Dressing Covered/Secured with Dry Gauze & Dry Gauze, Dry Gauze, Roll Gauze, Secured with Secured with Secured with Tape Tape Tape Right -Lotion applied to leg before No compression wrap -Tubular Bandage Single Layer Single Layer Single Layer -Size of Tubigrip Used Size D Size D Size D -Size D ($) 1 1 2 Left -Lotion applied to leg before No compression wrap -Tubular Bandage Single Layer Single Layer Single Layer -Size of Tubigrip Used Size D Size D Size D -Size D ($) 1 1 2 Pain Scale: 0-10 Numeric Is Patient Pain Free? Yes Yes Yes WC - Visit Discharge Discharge Condition Stable Stable Stable Ambulatory Status Ambulatory,Cane Ambulatory Ambulatory,Cane Transportation Private Auto Private Auto Private Auto Accompanied by Medication Reconcilliation completed & No Yes provided to patient/care provider Clinical Summary of Care Provided Yes Yes Yes Assessment/Plan Assessment/Plan (1) Non-pressure chronic ulcer of other part of left lower leg with fat layer exposed: CODE(S): L97.822 - Non-pressure chronic ulcer of other part of left lower leg with fat layer exposed PLAN: Patient was examined and evaluated. All findings were discussed with the patient. All questions were answered to the patient's satisfaction. Excision debridement down to and including subcutaneous tissue with a number 3 mm dermal curette to the left lateral full-thickness ulceration incident. Predebridement measurement was 0.8 x 0.6 x 0.1 cm. Postdebridement measurement is 0.9 x 0.7 x 0.1 cm. Left lower extremities were cleaned and patted dry, hydrogel collagen was applied to the left lower extremity followed by dry sterile dressing and single-layer Tubigrip. The patient's left arm was lifted and evaluated that showed evidence of breakdown of skin with no sign of infection. No debridement was done. The left arm was dressed with Adaptic, hydrogel collagen and dry sterile dressing and single-layer Tubigrip. Dressing instructions were educated to the patient which she was understanding of. Educated patient to remind her surroundings and help decrease her falls. Follow-up at the wound care center with Dr. Bal in 1 week. (2) Other specified peripheral vascular diseases: CODE(S): I73.89 - Other specified peripheral vascular diseases
--- NOTE | 2023-11-11 11:23 | WC ---
PHOTO 11/04/23 [email or web address]
[2023-11-11 13:15] VITALS: BP 92/49; PULSE 78; RESP 18; TEMP 36.7
--- NOTE | 2023-11-11 13:59 | PN.PCM_ITS ---
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 Ribera is an 83-year-old female presenting to the wound care center today for follow-up evaluation of full-thickness wound to left leg. Arm ulceration to the left upper extremity is improved. She has been doing dressing changes as instructed. Denies constitutional symptoms or any other pedal complaints at this time. Objective Data Objective Data Vital Signs: Vital Signs Temp Pulse Resp BP O2 Del Method 98.1 F 78 18 92/49 L Room Air 11/11/23 13:15 11/11/23 13:15 11/11/23 13:15 11/11/23 13:15 11/11/23 13:15 Oxygen Delivery Method Room Air Physical Exam Narrative Vascular: DP and PT pulse are palpable to the bilateral lower extremity. Skin temperature gradient is warm to warm from proximal ankle to distal digits bilateral. Nonpitting edema appreciated bilateral lower extremity. Evidence of hemosiderin deposits are appreciated bilateral. Neurological: Light touch intact. Epicritic sensation is intact. Dermatological: Full-thickness ulceration to the left lateral leg measuring 1.1 x 0.7 x 0.1 cm. Wound base is granular nature with no sign of infection. Excision debridement down to and including subcutaneous tissue with a number 3 mm dermal curette to the left lateral full-thickness ulceration incident. Predebridement measurement was 0.7 x 0.5 x 0.1 cm. Postdebridement measurement is 1.1 x 0.7 x 0.1 cm. Musculoskeletal: Mild pain to palpation to the distal lateral aspect of the left leg. No pain with calf compression. Debridement Note Debridement Note Debridement Free Text: Excision debridement down to and including subcutaneous tissue with a number 3 mm dermal curette to the left lateral full-thickness ulceration incident. Predebridement measurement was 0.7 x 0.5 x 0.1 cm. Postdebridement measurement is 1.1 x 0.7 x 0.1 cm. Post-Debridement Measurements and Additional Note: Post-Debridement Measurements/Treatment KRISTA - Nurse 1 - General Ulcer Assessment Start: 10/14/23 11:01 Freq: Status: Active Protocol: KWADWO Activity Type Activity Date Activity User E-sign Co-sign Detail Recorded Client Recorded Date Recorded By Document 10/14/23 11:02 KW ; 10/14/23 11:17 KW Document 10/21/23 13:10 KW ; 10/21/23 13:12 KW Document 10/28/23 13:17 DL [email or web address] 10/28/23 13:22 DL Document 11/04/23 13:07 KW d 11/04/23 13:17 KW Document 11/11/23 13:15 KW hkj 11/11/23 13:27 KW 10/14/23 10/21/23 10/28/23 11:02 13:10 13:17 WC - Today's Visit Information Type of service Follow-up Visit Follow-up Visit Follow-up Visit (Physician/SUPERVISOR CASE LOADING (Physician/SUPERVISOR CASE LOADING (Physician/SUPERVISOR CASE LOADING ) ) ) Arrival Mode Ambulatory,Cane Ambulatory,Cane Ambulatory Transfer Assistance None Accompanied by Patient Identification Verified (Name & Yes Yes Yes ) Patient Requires Transmission-Based No Precautions Vital Signs Temperature (97.8 F-99.1 F) 96.7 F L 96.9 F L 97 F L Temperature Source Temporal Temporal Temporal Pulse Rate (60-100) 68 90 84 Pulse Location Monitor Monitor Monitor Respiratory Rate (12-18) 18 18 16 Respiratory rate source Observation Observation Observation Oxygen Delivery Method Room Air Room Air Blood Pressure (90/60-120/80) 116/65 134/70 H 127/61 H Blood Pressure Mean (mm Hg) 82 91 83 Source Monitor Monitor Monitor Position Semi-Fowlers Semi-Fowlers Blood Pressure Location Left Arm Left Arm History Since Last Visit- (Skip if this is Patient's initial visit) Have you changed medications since your No No No last visit? Any new allergies or adverse reactions No No No Had a fall/change in ADL's that may No No No increase risk of falls Signs or symptoms of abuse and/or No No No neglect since last visit Have you been in the hospital since your No No No last visit? Has dressing in place as prescribed Yes Yes Yes Has compression in place as prescribed Yes Yes Yes Has offloadiing in place as prescribed N/A N/A N/A Experienced any changes in pain level or No No No management Left Footwear Regular Shoe Regular Shoe Right Footwear Regular Shoe Regular Shoe Pain Scale: 0-10 Numeric Is Patient Pain Free? Yes Yes Yes 11/04/23 11/11/23 13:07 13:15 WC - Today's Visit Information Type of service Follow-up Visit Follow-up Visit (Physician/SUPERVISOR CASE LOADING (Physician/SUPERVISOR CASE LOADING ) ) Arrival Mode Ambulatory,Cane Ambulatory,Cane Transfer Assistance Accompanied by Patient Identification Verified (Name & Yes Yes ) Patient Requires Transmission-Based No Precautions Vital Signs Temperature (97.8 F-99.1 F) 97.1 F L 98.1 F Temperature Source Temporal Temporal Pulse Rate (60-100) 81 78 Pulse Location Monitor Monitor Respiratory Rate (12-18) 18 18 Respiratory rate source Observation Observation Oxygen Delivery Method Room Air Room Air Blood Pressure (90/60-120/80) 103/60 92/49 L Blood Pressure Mean (mm Hg) 74 63 Source Monitor Monitor Position Semi-Fowlers Semi-Fowlers Blood Pressure Location Left Arm Left Arm History Since Last Visit- (Skip if this is Patient's initial visit) Have you changed medications since your No No last visit? Any new allergies or adverse reactions No No Had a fall/change in ADL's that may No No increase risk of falls Signs or symptoms of abuse and/or No No neglect since last visit Have you been in the hospital since your No No last visit? Has dressing in place as prescribed Yes Yes Has compression in place as prescribed Yes Yes Has offloadiing in place as prescribed N/A N/A Experienced any changes in pain level or No No management Left Footwear Regular Shoe Regular Shoe Right Footwear Regular Shoe Regular Shoe Pain Scale: 0-10 Numeric Is Patient Pain Free? Yes Yes - Nurse 1 - General Ulcer Measurement Start: 10/14/23 11:01 Freq: Status: Active Protocol: Activity Type Activity Date Activity User E-sign Co-sign Detail Recorded Client Recorded Date Recorded By Document 10/14/23 11:02 KW ; 10/14/23 11:17 KW Document 10/21/23 13:10 KW ; 10/21/23 13:12 KW Document 10/28/23 13:17 DL [email or web address] 10/28/23 13:22 DL Edit Result 10/28/23 13:17 DL (1) [email or web address] 10/28/23 13:23 DL Document 11/04/23 13:07 KW d 11/04/23 13:17 KW Document 11/11/23 13:15 KW hkj 11/11/23 13:27 KW (1) Right Calf (cm) => 35.5 Right Ankle (cm) => 22.5 10/14/23 10/21/23 10/28/23 11:02 13:10 13:17 Wound Center Nurse 1 3-right leg -Current Size (cm) - Length 0.1 -Current Size (cm) - Width 0.1 -Current Size (cm) - Depth 0.1 -Total Square Cm 0.01 -Texture ([place]le[place]-wound Skin Appearance) Assessed -Moisture ([place]-wound Skin Appearance) Assessed,Dry/ Scaly -Color ([place]th-wound Skin Appearance) Assessed, Hemosiderin Staining -Temperature ([place]-wound Skin No Abnormality Appearance) (Pt Warm) -Tenderness on Palpation ([place]-wound No Skin Appearance) -Ulcer Cleansing Rinsed/ Irrigated with Saline 2-leg posterior -Current Size (cm) - Length 1 0.5 0.1 -Current Size (cm) - Width 0.5 0.3 0.1 -Current Size (cm) - Depth 0.2 0.1 0.1 -Total Square Cm 0.5 0.15 0.01 -Epithelialization -Exudate Amt Medium Small None Present -Exudate Type Serosanguineous Serosanguineous -Wound Margin Distinct, Distinct, Indistinct, Non Outline Outline -Visible Attached Attached -Granulation Amt Large (67-100%) Medium (34-66%) Large (67-100%) -Granulation Quality [place] -Necrosis Amt Small (1-33%) Medium (34-66%) None Present (0 %) -Necrotic Tissue Type Adherent Slough Adherent Slough -Structure Exposed N/A -Texture ([place]-wound Skin Appearance) Assessed Assessed Scarring -Moisture ([place]-wound Skin Appearance) Maceration Assessed No Abnormality -Color ([place]-wound Skin Appearance) Erythema, Assessed Hemosiderin Hemosiderin Staining Staining -Temperature ([place]-wound Skin No Abnormality No Abnormality No Abnormality Appearance) (Pt Warm) (Pt Warm) (Pt Warm) -Tenderness on Palpation ([place]-wound No No No Skin Appearance) -Ulcer Cleansing Rinsed/ Rinsed/ Rinsed/ Irrigated with Irrigated with Irrigated with Saline Saline Saline -Foul Odor after Cleansing No No No -Anesthetic Used 5% Lidocaine 5% Lidocaine Gel Gel #1 LT LAT LE cluster -Current Size (cm) - Length 1.7 -Current Size (cm) - Width 1.6 -Current Size (cm) - Depth 0.2 -Total Square Cm 2.72 -Exudate Amt Medium -Exudate Type Serosanguineous -Wound Margin Distinct, Outline Attached -Granulation Amt Large (67-100%) -Granulation Quality Red -Necrosis Amt Small (1-33%) -Necrotic Tissue Type Adherent Slough -Texture ([place]leth-wound Skin Appearance) Assessed -Moisture ([place]le[place]-wound Skin Appearance) Maceration -Color ([place]leth-wound Skin Appearance) Assessed, Erythema, Hemosiderin Staining -Temperature ([place]-wound Skin No Abnormality Appearance) (Pt Warm) -Tenderness on Palpation ([place]-wound No Skin Appearance) -Ulcer Cleansing Rinsed/ Irrigated with Saline -Foul Odor after Cleansing No -Anesthetic Used 5% Lidocaine Gel #4 lt lat leg inf -Current Size (cm) - Length 1 1.2 0.4 -Current Size (cm) - Width 0.4 1.6 0.5 -Current Size (cm) - Depth 0.1 0.2 0.1 -Total Square Cm 0.4 1.92 0.20 -Photo Taken -Epithelialization -Undermining/Tunneling -Circular Undermining -Exudate Amt Small Small Small -Exudate Type Serosanguineous Serosanguineous Serosanguineous -Wound Margin Distinct, Distinct, Distinct, Outline Outline Outline Attached Attached Attached -Granulation Amt Large (67-100%) Medium (34-66%) Small (1-33%) -Granulation Quality Red [place] Red -Slough/Fibrin -Necrosis Amt Medium (34-66%) Small (1-33%) -Necrotic Tissue Type Adherent Slough Adherent Slough -Structure Exposed N/A -Texture ([place]leth-wound Skin Appearance) Assessed Assessed Scarring -Moisture ([place]-wound Skin Appearance) Assessed Assessed No Abnormality -Color ([place]-wound Skin Appearance) Assessed, Assessed Hemosiderin Erythema, Staining Hemosiderin Staining -Temperature ([place]-wound Skin No Abnormality No Abnormality No Abnormality Appearance) (Pt Warm) (Pt Warm) (Pt Warm) -Tenderness on Palpation ([place]-wound No No No Skin Appearance) -Ulcer Cleansing Rinsed/ Rinsed/ Soap and Water Irrigated with Irrigated with Saline Saline -Foul Odor after Cleansing No No No -Anesthetic Used 5% Lidocaine 5% Lidocaine 5% Lidocaine Gel Gel Gel Right Calf (cm) 36 35.5 Right Ankle (cm) 21.2 22.5 Left Calf (cm) 34.7 35 35 Left Ankle (cm) 23.2 22.2 22.2 11/04/23 11/11/23 13:07 13:15 Wound Center Nurse 1 3-right leg -Current Size (cm) - Length -Current Size (cm) - Width -Current Size (cm) - Depth -Total Square Cm -Texture ([place]le[place]-wound Skin Appearance) -Moisture ([place]le[place]-wound Skin Appearance) -Color ([place]leth-wound Skin Appearance) -Temperature ([place]-wound Skin Appearance) -Tenderness on Palpation (Arleth-wound Skin Appearance) -Ulcer Cleansing 2-leg posterior -Current Size (cm) - Length 0 -Current Size (cm) - Width 0 -Current Size (cm) - Depth 0 -Total Square Cm 0 -Epithelialization Large 67-100% -Exudate Amt -Exudate Type -Wound Margin -Granulation Amt -Granulation Quality -Necrosis Amt -Necrotic Tissue Type -Structure Exposed -Texture ([place]le[place]-wound Skin Appearance) -Moisture ([place]leth-wound Skin Appearance) -Color ([place]leth-wound Skin Appearance) -Temperature ([place]-wound Skin Appearance) -Tenderness on Palpation (Arleth-wound Skin Appearance) -Ulcer Cleansing -Foul Odor after Cleansing -Anesthetic Used #1 LT LAT LE cluster -Current Size (cm) - Length -Current Size (cm) - Width -Current Size (cm) - Depth -Total Square Cm -Exudate Amt -Exudate Type -Wound Margin -Granulation Amt -Granulation Quality -Necrosis Amt -Necrotic Tissue Type -Texture (Arleth-wound Skin Appearance) -Moisture (Arleth-wound Skin Appearance) -Color (Arleth-wound Skin Appearance) -Temperature ([place]-wound Skin Appearance) -Tenderness on Palpation (Arleth-wound Skin Appearance) -Ulcer Cleansing -Foul Odor after Cleansing -Anesthetic Used #4 lt lat leg inf -Current Size (cm) - Length 0.9 0.6 -Current Size (cm) - Width 0.8 0.3 -Current Size (cm) - Depth 0.2 0.1 -Total Square Cm 0.72 0.18 -Photo Taken Yes -Epithelialization None Present -Undermining/Tunneling No -Circular Undermining No -Exudate Amt Small Small -Exudate Type Serosanguineous Serosanguineous -Wound Margin Flat & Intact Distinct, Outline Attached -Granulation Amt Large (67-100%) Large (67-100%) -Granulation Quality Red Red -Slough/Fibrin No -Necrosis Amt -Necrotic Tissue Type -Structure Exposed N/A -Texture (Arleth-wound Skin Appearance) No Abnormality Assessed -Moisture ([place]le[place]-wound Skin Appearance) No Abnormality Assessed -Color ([place]leth-wound Skin Appearance) No Abnormality Assessed, Erythema -Temperature ([place]-wound Skin No Abnormality No Abnormality Appearance) (Pt Warm) (Pt Warm) -Tenderness on Palpation ([place]leth-wound No No Skin Appearance) -Ulcer Cleansing Rinsed/ Soap and Water Irrigated with Saline -Foul Odor after Cleansing No No -Anesthetic Used 5% Lidocaine 5% Lidocaine Gel Gel Right Calf (cm) Right Ankle (cm) Left Calf (cm) 35 34.6 Left Ankle (cm) 22 21.5 - Nurse 2 - General Ulcer CM Notes Start: 10/14/23 11:01 Freq: Status: Active Protocol: Activity Type Activity Date Activity User E-sign Co-sign Detail Recorded Client Recorded Date Recorded By Document 10/14/23 11:35 0000 10/14/23 11:41 Document 10/21/23 13:25 000 10/21/23 13:30 Document 10/28/23 13:30 [facility] 10/28/23 13:34 Document 11/04/23 13:25 000 11/04/23 13:26 Document 11/11/23 13:34 0000 11/11/23 13:36 10/14/23 10/21/23 10/28/23 11:35 13:25 13:30 Wound Center Nurse 2 3-right leg -Correct Patient No -Correct Side, Site, Position No -Correct Procedure No -Procedure Performed No -Post Debridement (cm) - Length 0 -Post Debridement (cm) - Width 0 -Post Debridement (cm) - Depth 0 -Total Square (Post) (cm) 0 -Area of Debridement (cm) - Length 0 -Area of Debridement (cm) - Width 0 -Total Square (Area) (cm) 0 -Wound/Ulcer Outcome Healed- Epithelialized 2-leg posterior -Time 11:40 13:27 13:31 -Correct Patient Yes Yes Yes -Correct Side, Site, Position Yes Yes Yes -Correct Procedure Yes Yes -Procedure Performed Yes Yes -Type of Procedure Debridement Debridement -Clinical Debridement Subcutaneous Subcutaneous -Tissue Removed Subcutaneous Subcutaneous -Post Debridement (cm) - Length 1.0 0.5 -Post Debridement (cm) - Width 0.5 0.4 -Post Debridement (cm) - Depth 0.1 0.1 -Total Square (Post) (cm) 0.50 0.20 -Area of Debridement (cm) - Length 1.0 0.5 -Area of Debridement (cm) - Width 0.5 0.4 -Total Square (Area) (cm) 0.50 0.20 -Tunneling No No -Undermining/Tunneling No No -Circular Undermining No No -Wound/Ulcer Outcome Not Healed Not Healed Healed- Epithelialized -Ulcer Cleansing Rinsed/ Rinsed/ Irrigated with Irrigated with Saline Saline -Foul Odor after Cleansing No No -Bioengineered Tissue No No -Bleeding Controlled with Pressure Pressure -Treatment Response Procedure Procedure Tolerated Well Tolerated Well -Offloading No No -Debridement - Subq, 1st 20sq cm Yes Yes #1 LT LAT LE cluster -Correct Patient No -Correct Side, Site, Position No -Correct Procedure No -Procedure Performed No #4 lt lat leg inf -Time 11:35 13:27 13:31 -Correct Patient Yes Yes Yes -Correct Side, Site, Position Yes Yes Yes -Correct Procedure Yes Yes Yes -Procedure Performed Yes Yes Yes -Type of Procedure Debridement Debridement Debridement -Clinical Debridement Subcutaneous Subcutaneous Subcutaneous -Tissue Removed Subcutaneous Subcutaneous Subcutaneous -Post Debridement (cm) - Length 2.8 1.2 0.9 -Post Debridement (cm) - Width 2.1 1.3 0.8 -Post Debridement (cm) - Depth 0.1 0.1 0.1 -Total Square (Post) (cm) 5.88 1.56 0.72 -Area of Debridement (cm) - Length 2.8 1.2 0.9 -Area of Debridement (cm) - Width 2.1 1.3 0.8 -Total Square (Area) (cm) 5.88 1.56 0.72 -Tunneling No No No -Undermining/Tunneling No No No -Circular Undermining No No No -Wound/Ulcer Outcome Not Healed Not Healed -Ulcer Cleansing Rinsed/ Rinsed/ Rinsed/ Irrigated with Irrigated with Irrigated with Saline Saline Saline -Foul Odor after Cleansing No No No -Bioengineered Tissue No No -Bleeding Controlled with Pressure Pressure Pressure -Treatment Response Procedure Procedure Procedure Tolerated Well Tolerated Well Tolerated Well -Offloading No No -Debridement - Subq, 1st 20sq cm No No Yes Pain Scale: 0-10 Numeric Is Patient Pain Free? Yes Yes Yes 11/04/23 11/11/23 13:25 13:34 Wound Center Nurse 2 3-right leg -Correct Patient -Correct Side, Site, Position -Correct Procedure -Procedure Performed -Post Debridement (cm) - Length -Post Debridement (cm) - Width -Post Debridement (cm) - Depth -Total Square (Post) (cm) -Area of Debridement (cm) - Length -Area of Debridement (cm) - Width -Total Square (Area) (cm) -Wound/Ulcer Outcome 2-leg posterior -Time -Correct Patient No -Correct Side, Site, Position No -Correct Procedure No -Procedure Performed No -Type of Procedure -Clinical Debridement -Tissue Removed -Post Debridement (cm) - Length 0 -Post Debridement (cm) - Width 0 -Post Debridement (cm) - Depth 0 -Total Square (Post) (cm) 0 -Area of Debridement (cm) - Length 0 -Area of Debridement (cm) - Width 0 -Total Square (Area) (cm) 0 -Tunneling -Undermining/Tunneling -Circular Undermining -Wound/Ulcer Outcome Healed- Epithelialized -Ulcer Cleansing -Foul Odor after Cleansing -Bioengineered Tissue -Bleeding Controlled with -Treatment Response -Offloading -Debridement - Subq, 20sq cm #1 LT LAT LE cluster -Correct Patient -Correct Side, Site, Position -Correct Procedure -Procedure Performed #4 lt lat leg inf -Time 13:25 13:34 -Correct Patient Yes Yes -Correct Side, Site, Position Yes Yes -Correct Procedure Yes Yes -Procedure Performed Yes Yes -Type of Procedure Debridement Debridement -Clinical Debridement Subcutaneous Subcutaneous -Tissue Removed Subcutaneous Subcutaneous -Post Debridement (cm) - Length 0.9 1.1 -Post Debridement (cm) - Width 0.7 0.7 -Post Debridement (cm) - Depth 0.1 0.1 -Total Square (Post) (cm) 0.63 0.77 -Area of Debridement (cm) - Length 0.9 1.1 -Area of Debridement (cm) - Width 0.7 0.7 -Total Square (Area) (cm) 0.63 0.77 -Tunneling No No -Undermining/Tunneling No No -Circular Undermining No No -Wound/Ulcer Outcome Not Healed Not Healed -Ulcer Cleansing Rinsed/ Rinsed/ Irrigated with Irrigated with Saline Saline -Foul Odor after Cleansing No No -Bioengineered Tissue No No -Bleeding Controlled with Pressure Pressure -Treatment Response Procedure Procedure Tolerated Well Tolerated Well -Offloading No No -Debridement - Subq, 1st 20sq cm Yes Yes Pain Scale: 0-10 Numeric Is Patient Pain Free? Yes Yes - Nurse 3 - General Ulcer D/C NN Start: 10/14/23 11:01 Freq: Status: Active Protocol: Activity Type Activity Date Activity User E-sign Co-sign Detail Recorded Client Recorded Date Recorded By Document 10/14/23 11:48 KW 0000 10/14/23 11:51 KW Document 10/21/23 14:46 JF 000 10/21/23 14:47 JF Document 10/28/23 13:53 GM 10/28/23 13:55 GM Document 11/04/23 13:33 KW d 11/04/23 13:34 KW 10/14/23 10/21/23 10/28/23 11:48 14:46 13:53 Wound Care Center Nurse 3 2-leg posterior -Ulcer Cleansing Rinsed/ Irrigated with Saline -Foul Odor after Cleansing No -Primary Dressing Applied NonAdherent Contact Layer -Other Dressing hydrogel -Primary Dressing Covered/Secured with Dry Gauze Dry Gauze, Secured with Tape #4 lt lat leg inf -Ulcer Cleansing Rinsed/ Rinsed/ Not Cleansed Irrigated with Irrigated with Saline Saline -Foul Odor after Cleansing No No -Negative Pressure Wound Therapy N/A -Primary Dressing Applied C Hydrogel ($), C Hydrogel ($) NonAdherent Contact Layer -Primary Dressing Covered/Secured with Dry Gauze & Dry Gauze, Dry Gauze, Roll Gauze, Secured with Secured with Secured with Tape Tape Tape Right -Lotion applied to leg before No compression wrap -Tubular Bandage Single Layer Single Layer Single Layer -Size of Tubigrip Used Size D Size D Size D -Size D ($) 1 1 2 Left -Lotion applied to leg before No compression wrap -Tubular Bandage Single Layer Single Layer Single Layer -Size of Tubigrip Used Size D Size D Size D -Size D ($) 1 1 2 Pain Scale: 0-10 Numeric Is Patient Pain Free? Yes Yes Yes WC - Visit Discharge Discharge Condition Stable Stable Stable Ambulatory Status Ambulatory,Cane Ambulatory Ambulatory,Cane Transportation Private Auto Private Auto Private Auto Accompanied by Medication Reconcilliation completed & No Yes provided to patient/care provider Clinical Summary of Care Provided Yes Yes Yes 11/04/23 13:33 Wound Care Center Nurse 3 2-leg posterior -Ulcer Cleansing -Foul Odor after Cleansing -Primary Dressing Applied -Other Dressing -Primary Dressing Covered/Secured with #4 lt lat leg inf -Ulcer Cleansing -Foul Odor after Cleansing -Negative Pressure Wound Therapy -Primary Dressing Applied C Hydrogel ($) -Primary Dressing Covered/Secured with Dry Gauze & Roll Gauze, Secured with Tape Right -Lotion applied to leg before compression wrap -Tubular Bandage Single Layer -Size of Tubigrip Used Size D -Size D ($) 1 Left -Lotion applied to leg before compression wrap -Tubular Bandage -Size of Tubigrip Used -Size D ($) Pain Scale: 0-10 Numeric Is Patient Pain Free? Yes WC - Visit Discharge Discharge Condition Ambulatory Status Transportation Accompanied by Medication Reconcilliation completed & provided to patient/care provider Clinical Summary of Care Provided Assessment/Plan Assessment/Plan (1) Non-pressure chronic ulcer of other part of left lower leg with fat layer exposed: CODE(S): L97.822 - Non-pressure chronic ulcer of other part of left lower leg with fat layer exposed PLAN: Patient was examined and evaluated. All findings were discussed with the patient. All questions were answered to the patient's satisfaction. Excision debridement down to and including subcutaneous tissue with a number 3 mm dermal curette to the left lateral full-thickness ulceration incident. Predebridement measurement was 0.7 x 0.5 x 0.1 cm. Postdebridement measurement is 1.1 x 0.7 x 0.1 cm. Left lower extremity are clean and patted dry. Hydrogel with dry sterile dressing and Tubigrip was applied to left lower extremity. Follow-up at the wound care center with Dr. Bal in 2 week. (2) Other specified peripheral vascular diseases: CODE(S): I73.89 - Other specified peripheral vascular diseases
== END 2023-11-11 23:59 | disposition home or self-care (01) ==
LOC: WC 13:00
PROVIDERS: PCP Family Medicine; Referring Provider Family Medicine; Visit Provider Podiatrist Foot & Ankle Surgery
DX: L97.822 Non-pressure chronic ulcer of other part of left lower leg with fat layer exposed (principal); I82.462 Acute embolism and thrombosis of left calf muscular vein; S81.812A Laceration without foreign body, left lower leg, initial encounter; S81.811A Laceration without foreign body, right lower leg, initial encounter; X58.XXXA Exposure to other specified factors, initial encounter; I73.89 Other specified peripheral vascular diseases; L03.90 Cellulitis, unspecified; Z79.01 Long term (current) use of anticoagulants; Z79.2 Long term (current) use of antibiotics; Z79.890 Hormone replacement therapy; Z79.899 Other long term (current) drug therapy
CPT/HCPCS: 11042; 93922; 93970

== ENCOUNTER → 2023-11-25 | Outpatient (CLI) | payer MEDICARE, SELFPAY | END | disposition home or self-care (01) | LOC: MFPLAB 11:15 | PROVIDERS: PCP Family Medicine; Visit Provider Family Medicine | DX: E03.9 Hypothyroidism, unspecified (principal) | CPT/HCPCS: 36415; 84443 ==

== ENCOUNTER 2023-12-09 13:00 | Outpatient (RCR) | payer MEDICARE, SELFPAY ==
[2023-11-12 00:25] VITALS: BP 122/60; PULSE 68; RESP 18; TEMP 36.7
[2023-11-25 13:24] VITALS: BP 102/55; PULSE 78; RESP 18; TEMP 36.2
--- NOTE | 2023-11-25 16:41 | PCM.WC.PN ---
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 Ribera is an 83-year-old female presenting to the wound care center today for follow-up evaluation of full-thickness wound to left leg. Arm ulceration to the left upper extremity is improved. She has been doing dressing changes as instructed. Denies constitutional symptoms or any other pedal complaints at this time. Objective Data Objective Data Vital Signs: Vital Signs Temp Pulse Resp BP 97.2 F L 78 18 102/55 L 11/25/23 13:24 11/25/23 13:24 11/25/23 13:24 11/25/23 13:24 Physical Exam Narrative Vascular: DP and PT pulse are palpable to the bilateral lower extremity. Skin temperature gradient is warm to warm from proximal ankle to distal digits bilateral. Nonpitting edema appreciated bilateral lower extremity. Evidence of hemosiderin deposits are appreciated bilateral. Neurological: Light touch intact. Epicritic sensation is intact. Dermatological: Full-thickness ulceration to the left lateral leg measuring 0.3 x 0.2 x 0.1 cm. Wound base is granular nature with no sign of infection. Excision debridement down to and including subcutaneous tissue with a number 3 mm dermal curette to the left lateral full-thickness ulceration incident. Predebridement measurement was 0.2 x 0.1 x 0.1 cm. Postdebridement measurement is 0.3 x 0.2 x 0.1 cm. Musculoskeletal: Mild pain to palpation to the distal lateral aspect of the left leg. No pain with calf compression. Debridement Note Debridement Note Debridement Free Text: Excision debridement down to and including subcutaneous tissue with a number 3 mm dermal curette to the left lateral full-thickness ulceration incident. Predebridement measurement was 0.2 x 0.1 x 0.1 cm. Postdebridement measurement is 0.3 x 0.2 x 0.1 cm. Post-Debridement Measurements and Additional Note: Post-Debridement Measurements/Treatment WC - Nurse 1 - General Ulcer Assessment Start: 11/25/23 13:20 Freq: Status: Active Protocol: SBEXNita Activity Type Activity Date Activity User E-sign Co-sign Detail Recorded Client Recorded Date Recorded By Document 11/25/23 13:24 DL [id number] 11/25/23 13:33 DL 11/25/23 13:24 - Today's Visit Information Type of service Follow-up Visit (Physician/OPTICAL COATING TECHNICIAN ) Arrival Mode Ambulatory Transfer Assistance None Patient Identification Verified (Name & Yes ) Patient Requires Transmission-Based No Precautions Vital Signs Temperature (97.8 F-99.1 F) 97.2 F L Temperature Source Temporal Pulse Rate (60-100) 78 Pulse Location Monitor Respiratory Rate (12-18) 18 Respiratory rate source Observation Blood Pressure (90/60-120/80) 102/55 L Blood Pressure Mean (mm Hg) 70 Source Monitor History Since Last Visit- (Skip if this is Patient's initial visit) Have you changed medications since your No last visit? Any new allergies or adverse reactions No Had a fall/change in ADL's that may No increase risk of falls Signs or symptoms of abuse and/or No neglect since last visit Have you been in the hospital since your No last visit? Has dressing in place as prescribed Yes Has compression in place as prescribed Yes Has offloadiing in place as prescribed N/A Experienced any changes in pain level or No management Pain Scale: 0-10 Numeric Is Patient Pain Free? Yes - Nurse 1 - General Ulcer Measurement Start: 11/25/23 13:20 Freq: Status: Active Protocol: Activity Type Activity Date Activity User E-sign Co-sign Detail Recorded Client Recorded Date Recorded By Document 11/25/23 13:24 DL [id number] 11/25/23 13:33 DL 11/25/23 13:24 Wound Center Nurse 1 #4 lt lat leg inf -Current Size (cm) - Length 0.1 -Current Size (cm) - Width 0.1 -Current Size (cm) - Depth 0.1 -Total Square Cm 0.01 -Exudate Amt None Present -Granulation Amt Large (67-100%) -Granulation Quality [place] -Necrosis Amt None Present (0 %) -Structure Exposed N/A -Texture (Arleth-wound Skin Appearance) Scarring -Moisture (Arleth-wound Skin Appearance) Dry/Scaly -Color (Arleth-wound Skin Appearance) Hemosiderin Staining -Temperature (Arleth-wound Skin No Abnormality Appearance) (Pt Warm) -Ulcer Cleansing Soap and Water -Foul Odor after Cleansing No -Anesthetic Used 5% Lidocaine Gel Right Calf (cm) 34 Right Ankle (cm) 20.7 Left Calf (cm) 35 Left Ankle (cm) 22 - Nurse 2 - General Ulcer CM Notes Start: 11/25/23 13:20 Freq: Status: Active Protocol: Activity Type Activity Date Activity User E-sign Co-sign Detail Recorded Client Recorded Date Recorded By Document 11/25/23 13:39 JF 0000 11/25/23 13:41 JF 11/25/23 13:39 Wound Center Nurse 2 #4 lt lat leg inf -Time 13:39 -Correct Patient Yes -Correct Side, Site, Position Yes -Correct Procedure Yes -Procedure Performed Yes -Type of Procedure Debridement -Clinical Debridement Subcutaneous -Tissue Removed Subcutaneous -Post Debridement (cm) - Length 0.3 -Post Debridement (cm) - Width 0.2 -Post Debridement (cm) - Depth 0.1 -Total Square (Post) (cm) 0.06 -Area of Debridement (cm) - Length 0.3 -Area of Debridement (cm) - Width 0.2 -Total Square (Area) (cm) 0.06 -Tunneling No -Undermining/Tunneling No -Circular Undermining No -Wound/Ulcer Outcome Not Healed -Ulcer Cleansing Rinsed/ Irrigated with Saline -Foul Odor after Cleansing No -Bioengineered Tissue No -Bleeding Controlled with Pressure -Treatment Response Procedure Tolerated Well -Offloading No -Debridement - Subq, 1st 20sq cm Yes Pain Scale: 0-10 Numeric Is Patient Pain Free? Yes - Nurse 3 - General Ulcer D/C NN Start: 11/25/23 13:20 Freq: Status: Active Protocol: Activity Type Activity Date Activity User E-sign Co-sign Detail Recorded Client Recorded Date Recorded By Document 11/25/23 13:48 [place] [id number] 11/25/23 13:49 [place] 11/25/23 13:48 Wound Care Center Nurse 3 #4 lt lat leg inf -Other Dressing adaptic, hydrogel, gauze -Primary Dressing Covered/Secured with Dry Gauze & Roll Gauze, Secured with Tape -Wound Comment(s) own compression stocking Pain Scale: 0-10 Numeric Is Patient Pain Free? Yes Assessment/Plan Assessment/Plan (1) Non-pressure chronic ulcer of other part of left lower leg with fat layer exposed: CODE(S): L97.822 - Non-pressure chronic ulcer of other part of left lower leg with fat layer exposed PLAN: Patient was examined and evaluated. All findings were discussed with the patient. All questions were answered to the patient's satisfaction. Excision debridement down to and including subcutaneous tissue with a number 3 mm dermal curette to the left lateral full-thickness ulceration incident. Predebridement measurement was 0.2 x 0.1 x 0.1 cm. Postdebridement measurement is 0.3 x 0.2 x 0.1 cm. Left lower extremities were cleaned and patted dry. Hydrogel was applied to the left lower extremity followed by dry sterile dressing and compression. Patient will continue daily dressing changes as instructed. Follow-up at the wound care center with Dr. Bal in 2 week. (2) Other specified peripheral vascular diseases: CODE(S): I73.89 - Other specified peripheral vascular diseases
[2023-12-09 13:05] VITALS: BP 113/62; PULSE 73; RESP 16; TEMP 35.9
--- NOTE | 2023-12-09 14:12 | PCM.WC.PN ---
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 Maricel Palomo is a 83-year-old female presenting to clinic they will follow-up evaluation of full-thickness wound to the right leg. Patient is doing well. She has been doing home dressing changes as instructed. She denies any new onset of trauma. Denies constitutional symptoms. No other complaints at this time. Objective Data Objective Data Vital Signs: Vital Signs Temp Pulse Resp BP O2 Del Method 96.7 F L 73 16 113/62 Room Air 12/09/23 13:05 12/09/23 13:05 12/09/23 13:05 12/09/23 13:05 12/09/23 13:05 Oxygen Delivery Method Room Air Physical Exam Narrative Vascular: DP and PT pulse are palpable to the bilateral lower extremity. Skin temperature gradient is warm to warm from proximal ankle to distal digits bilateral. Nonpitting edema appreciated bilateral lower extremity. Evidence of hemosiderin deposits are appreciated bilateral. Neurological: Light touch intact. Epicritic sensation is intact. Dermatological: Full-thickness ulceration to the right lateral leg measuring 1.7 x 0.7 x 0.1 cm. Wound base is granular nature with no sign of infection. Excision debridement down to and including subcutaneous tissue with a number 3 mm dermal curette to the right lateral full-thickness ulceration incident. Predebridement measurement was 1.5 x 0.5 x 0.1 cm. Postdebridement measurement is 1.7 x 0.7 x 0.1 cm. Musculoskeletal: Mild pain to palpation to the distal lateral aspect of the left leg. No pain with calf compression. Debridement Note Debridement Note Debridement Free Text: Excision debridement down to and including subcutaneous tissue with a number 3 mm dermal curette to the right lateral full-thickness ulceration incident. Predebridement measurement was 1.5 x 0.5 x 0.1 cm. Postdebridement measurement is 1.7 x 0.7 x 0.1 cm. Post-Debridement Measurements and Additional Note: Post-Debridement Measurements/Treatment WC - Nurse 1 - General Ulcer Assessment Start: 11/25/23 13:20 Freq: Status: Active Protocol: KWADWO Activity Type Activity Date Activity User E-sign Co-sign Detail Recorded Client Recorded Date Recorded By Document 11/25/23 13:24 DL 1606-1-10 11/25/23 13:33 DL Document 12/09/23 13:05 KW [id number] 12/09/23 13:11 11/25/23 12/09/23 13:24 13:05 - Today's Visit Information Type of service Follow-up Visit Follow-up Visit (Physician/INDUSTRIAL SECURITY ANALYST (Physician/INDUSTRIAL SECURITY ANALYST ) ) Arrival Mode Ambulatory Ambulatory,Cane Transfer Assistance None Accompanied by Patient Identification Verified (Name & Yes Yes ) Patient Requires Transmission-Based No Precautions Vital Signs Temperature (97.8 F-99.1 F) 97.2 F L 96.7 F L Temperature Source Temporal Temporal Pulse Rate (60-100) 78 73 Pulse Location Monitor Monitor Respiratory Rate (12-18) 18 16 Respiratory rate source Observation Observation Oxygen Delivery Method Room Air Blood Pressure (90/60-120/80) 102/55 L 113/62 Blood Pressure Mean (mm Hg) 70 79 Source Monitor Monitor Position Semi-Fowlers Blood Pressure Location Left Arm History Since Last Visit- (Skip if this is Patient's initial visit) Have you changed medications since your No No last visit? Any new allergies or adverse reactions No No Had a fall/change in ADL's that may No No increase risk of falls Signs or symptoms of abuse and/or No No neglect since last visit Have you been in the hospital since your No No last visit? Has dressing in place as prescribed Yes Yes Has compression in place as prescribed Yes Yes Has offloadiing in place as prescribed N/A N/A Experienced any changes in pain level or No No management Left Footwear Regular Shoe Right Footwear Regular Shoe Pain Scale: 0-10 Numeric Is Patient Pain Free? Yes Yes - Nurse 1 - General Ulcer Measurement Start: 11/25/23 13:20 Freq: Status: Active Protocol: Activity Type Activity Date Activity User E-sign Co-sign Detail Recorded Client Recorded Date Recorded By Document 11/25/23 13:24 [id number] 11/25/23 13:33 Document 12/09/23 13:05 [id number] 12/09/23 13:11 11/25/23 12/09/23 13:24 13:05 Wound Center Nurse 1 #4 lt lat leg inf -Current Size (cm) - Length 0.1 2 -Current Size (cm) - Width 0.1 1.5 -Current Size (cm) - Depth 0.1 0.1 -Total Square Cm 0.01 3.0 -Exudate Amt None Present Small -Exudate Type Serosanguineous -Wound Margin Distinct, Outline Attached -Granulation Amt Large (67-100%) -Granulation Quality [place] -Necrosis Amt None Present (0 Small (1-33%) %) -Necrotic Tissue Type Adherent Slough -Structure Exposed N/A -Texture (Arleth-wound Skin Appearance) Scarring Assessed -Moisture (Arleth-wound Skin Appearance) Dry/Scaly Assessed -Color (Arleth-wound Skin Appearance) Hemosiderin Assessed Staining -Temperature (Arleth-wound Skin No Abnormality No Abnormality Appearance) (Pt Warm) (Pt Warm) -Tenderness on Palpation ([place]le[place]-wound No Skin Appearance) -Ulcer Cleansing Soap and Water Rinsed/ Irrigated with Saline -Foul Odor after Cleansing No No -Anesthetic Used 5% Lidocaine 5% Lidocaine Gel Gel Right Calf (cm) 34 Right Ankle (cm) 20.7 Left Calf (cm) 35 Left Ankle (cm) 22 WC - Nurse 2 - General Ulcer CM Notes Start: 11/25/23 13:20 Freq: Status: Active Protocol: Activity Type Activity Date Activity User E-sign Co-sign Detail Recorded Client Recorded Date Recorded By Document 11/25/23 13:39 0000 11/25/23 13:41 Document 12/09/23 13:21 [id number] 12/09/23 13:25 11/25/23 12/09/23 13:39 13:21 Wound Center Nurse 2 #4 lt lat leg inf -Time 13:39 -Correct Patient Yes No -Correct Side, Site, Position Yes No -Correct Procedure Yes No -Procedure Performed Yes No -Type of Procedure Debridement -Clinical Debridement Subcutaneous -Tissue Removed Subcutaneous -Post Debridement (cm) - Length 0.3 0 -Post Debridement (cm) - Width 0.2 0 -Post Debridement (cm) - Depth 0.1 0 -Total Square (Post) (cm) 0.06 0 -Area of Debridement (cm) - Length 0.3 0 -Area of Debridement (cm) - Width 0.2 0 -Total Square (Area) (cm) 0.06 0 -Tunneling No -Undermining/Tunneling No -Circular Undermining No -Wound/Ulcer Outcome Not Healed Healed- Epithelialized -Ulcer Cleansing Rinsed/ Irrigated with Saline -Foul Odor after Cleansing No -Bioengineered Tissue No -Bleeding Controlled with Pressure -Treatment Response Procedure Tolerated Well -Offloading No -Debridement - Subq, 1st 20sq cm Yes 5-right lower leg -Time 13:22 -Correct Patient Yes -Correct Side, Site, Position Yes -Correct Procedure Yes -Procedure Performed Yes -Type of Procedure Debridement -Clinical Debridement Subcutaneous -Tissue Removed Subcutaneous -Post Debridement (cm) - Length 1.7 -Post Debridement (cm) - Width 0.7 -Post Debridement (cm) - Depth 0.1 -Total Square (Post) (cm) 1.19 -Area of Debridement (cm) - Length 1.7 -Area of Debridement (cm) - Width 0.7 -Total Square (Area) (cm) 1.19 -Tunneling No -Undermining/Tunneling No -Circular Undermining No -Wound/Ulcer Outcome Not Healed -Ulcer Cleansing Rinsed/ Irrigated with Saline -Foul Odor after Cleansing No -Bioengineered Tissue No -Bleeding Controlled with Pressure -Treatment Response Procedure Tolerated Well -Offloading No -Debridement - Subq, 1st 20sq cm Yes Pain Scale: 0-10 Numeric Is Patient Pain Free? Yes Yes WC - Nurse 3 - General Ulcer D/C NN Start: 11/25/23 13:20 Freq: Status: Active Protocol: Activity Type Activity Date Activity User E-sign Co-sign Detail Recorded Client Recorded Date Recorded By Document 11/25/23 13:48 VA [id number] 11/25/23 13:49 VA Document 12/09/23 13:36 VA [id number] 12/09/23 13:38 VA 11/25/23 12/09/23 13:48 13:36 Wound Care Center Nurse 3 #4 lt lat leg inf -Other Dressing adaptic, hydrogel, gauze -Primary Dressing Covered/Secured with Dry Gauze & Roll Gauze, Secured with Tape -Wound Comment(s) own compression stocking 5-right lower leg -Ulcer Cleansing Rinsed/ Irrigated with Saline -Foul Odor after Cleansing No -Primary Dressing Applied C Hydrogel ($), NonAdherent Contact Layer -Other Dressing hydrogel -Primary Dressing Covered/Secured with Dry Gauze & Roll Gauze, Secured with Tape ble -Other reapplied pts own compression stockings Treatment Response Procedure Tolerated Well Pain Scale: 0-10 Numeric Is Patient Pain Free? Yes Yes WC - Visit Discharge Discharge Condition Stable Ambulatory Status Ambulatory,Cane Transportation Private Auto Accompanied by Assessment/Plan Assessment/Plan (1) Non-pressure chronic ulcer of other part of right lower leg with fat layer exposed: CODE(S): L97.812 - Non-pressure chronic ulcer of other part of right lower leg with fat layer exposed PLAN: Patient was examined and evaluated. All findings were discussed with the patient. All questions were answered to the patient's satisfaction. Excision debridement down to and including subcutaneous tissue with a number 3 mm dermal curette to the right lateral full-thickness ulceration incident. Predebridement measurement was 1.5 x 0.5 x 0.1 cm. Postdebridement measurement is 1.7 x 0.7 x 0.1 cm. Left lower extremities were cleaned and patted dry. Hydrogel was applied to the left lower extremity followed by dry sterile dressing and compression. Patient will continue daily dressing changes as instructed. Follow-up at the wound care center with Dr. Bal in 2 week. (2) Other specified peripheral vascular diseases: CODE(S): I73.89 - Other specified peripheral vascular diseases
== END 2023-12-12 23:59 | disposition home or self-care (01) ==
LOC: WC 13:00
PROVIDERS: PCP Family Medicine; Referring Provider Family Medicine; Visit Provider Podiatrist Foot & Ankle Surgery
DX: L97.822 Non-pressure chronic ulcer of other part of left lower leg with fat layer exposed (principal); X58.XXXS Exposure to other specified factors, sequela; I73.89 Other specified peripheral vascular diseases; Z79.890 Hormone replacement therapy; Z79.899 Other long term (current) drug therapy
CPT/HCPCS: 11042

== ENCOUNTER 2023-12-30 13:00 | Outpatient (RCR) | payer MEDICARE, SELFPAY ==
[2023-12-13 00:19] VITALS: BP 122/60; PULSE 68; RESP 18; TEMP 36.7
[2023-12-23 13:25] VITALS: BP 114/67; PULSE 77; RESP 18; TEMP 35.9
--- NOTE | 2023-12-23 16:10 | PN.PCM_ITS ---
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 Ribera is an 83-year-old female presenting to the wound care center today for follow-up evaluation of right proximal ulceration. Patient has been applying hydrogel and nonadhesive tape with gauze to the ulceration. She admits there is pain with touch. She denies drainage. She admits there is some periwound redness. No antibiotic treatment thus far. Denies trauma. Denies constitutional symptoms. No other pedal complaints at this time. Objective Data Objective Data Vital Signs: Vital Signs Temp Pulse Resp BP 96.7 F L 77 18 114/67 12/23/23 13:25 12/23/23 13:25 12/23/23 13:25 12/23/23 13:25 Physical Exam Narrative Vascular: DP and PT pulse are palpable to the bilateral lower extremity. Skin temperature gradient is warm to warm from proximal ankle to distal digits bilateral. Nonpitting edema appreciated bilateral lower extremity. Evidence of hemosiderin deposits are appreciated bilateral. Periwound erythema. Neurological: Light touch intact. Epicritic sensation is intact. Dermatological: Full-thickness ulceration to the right lateral leg measuring 2.5 x 0.8 x 0.1 cm. Wound base is granular nature with Periwound erythema. Excision debridement down to and including subcutaneous tissue with a number 3 mm dermal curette to the right lateral full-thickness ulceration incident. Predebridement measurement was 2.4 x 0.7 x 0.1 cm. Postdebridement measurement is 2.5 x 0.8 x 0.1 cm. Musculoskeletal: Mild pain to palpation to the distal lateral aspect of the left leg. No pain with calf compression. Debridement Note Debridement Note Debridement Free Text: Excision debridement down to and including subcutaneous tissue with a number 3 mm dermal curette to the right lateral full-thickness ulceration incident. Predebridement measurement was 2.4 x 0.7 x 0.1 cm. Postdebridement measurement is 2.5 x 0.8 x 0.1 cm. Post-Debridement Measurements and Additional Note: Post-Debridement Measurements/Treatment KRISTA - Nurse 1 - General Ulcer Assessment Start: 12/23/23 13:25 Freq: Status: Active Protocol: KWADWO Activity Type Activity Date Activity User E-sign Co-sign Detail Recorded Client Recorded Date Recorded By Document 12/23/23 13:25 JF [id number] 12/23/23 13:30 12/23/23 13:25 - Today's Visit Information Type of service Follow-up Visit (Physician/[employer] ) Arrival Mode Ambulatory Patient Identification Verified (Name & Yes ) Patient Requires Transmission-Based No Precautions Vital Signs Temperature (97.8 F-99.1 F) 96.7 F L Temperature Source Temporal Pulse Rate (60-100) 77 Pulse Location Monitor Respiratory Rate (12-18) 18 Respiratory rate source Observation Blood Pressure (90/60-120/80) 114/67 Blood Pressure Mean (mm Hg) 82 Source Monitor Position Semi-Fowlers Blood Pressure Location Right Arm History Since Last Visit- (Skip if this is Patient's initial visit) Have you changed medications since your No last visit? Any new allergies or adverse reactions No Had a fall/change in ADL's that may No increase risk of falls Signs or symptoms of abuse and/or No neglect since last visit Have you been in the hospital since your No last visit? Has dressing in place as prescribed Yes Has compression in place as prescribed Yes Has offloadiing in place as prescribed N/A Experienced any changes in pain level or No management Left Footwear Regular Shoe Right Footwear Regular Shoe Pain Scale: 0-10 Numeric Is Patient Pain Free? Yes - Nurse 1 - General Ulcer Measurement Start: 12/23/23 13:25 Freq: Status: Active Protocol: Activity Type Activity Date Activity User E-sign Co-sign Detail Recorded Client Recorded Date Recorded By Document 12/23/23 13:25 JF [id number] 12/23/23 13:30 12/23/23 13:25 Wound Center Nurse 1 5-right lower leg -Combined with other wound No -Current Size (cm) - Length 0.1 -Current Size (cm) - Width 0.1 -Current Size (cm) - Depth 0.1 -Total Square Cm 0.01 -Photo Taken No -Epithelialization Large 67-100% -Tunneling No -Undermining/Tunneling No -Circular Undermining No -Exudate Amt None Present -Wound Margin Indistinct, Non -Visible -Granulation Amt Small (1-33%) -Slough/Fibrin Yes -Necrosis Amt Large (67-100%) -Necrotic Tissue Type Adherent Slough -Structure Exposed N/A -Texture (Arleth-wound Skin Appearance) Assessed -Moisture (Arleth-wound Skin Appearance) Assessed,Dry/ Scaly -Color (Arleth-wound Skin Appearance) Assessed -Temperature (Arleth-wound Skin No Abnormality Appearance) (Pt Warm) -Tenderness on Palpation (Arleth-wound No Skin Appearance) -Ulcer Cleansing Rinsed/ Irrigated with Saline -Foul Odor after Cleansing No -Anesthetic Used 5% Lidocaine Gel 6-right sup barajas -Combined with other wound No -Current Size (cm) - Length 3.0 -Current Size (cm) - Width 0.5 -Current Size (cm) - Depth 0.1 -Total Square Cm 1.50 -Photo Taken Yes -Epithelialization Small 1-33% -Tunneling No -Undermining/Tunneling No -Circular Undermining No -Exudate Amt Small -Exudate Type Serosanguineous -Wound Margin Flat & Intact -Granulation Amt Large (67-100%) -Granulation Quality Red -Slough/Fibrin Yes -Necrosis Amt Small (1-33%) -Necrotic Tissue Type Adherent Slough -Structure Exposed N/A -Texture (Arleth-wound Skin Appearance) Assessed -Moisture (Arleth-wound Skin Appearance) Assessed,Dry/ Scaly -Color (Arleth-wound Skin Appearance) Assessed -Temperature (Arleth-wound Skin No Abnormality Appearance) (Pt Warm) -Tenderness on Palpation (Arleth-wound No Skin Appearance) -Ulcer Cleansing Rinsed/ Irrigated with Saline -Foul Odor after Cleansing No -Anesthetic Used 5% Lidocaine Gel Lower Limb Edema Present Yes Right Calf (cm) 34.3 Right Ankle (cm) 21.0 WC - Nurse 2 - General Ulcer CM Notes Start: 12/23/23 13:25 Freq: Status: Active Protocol: Activity Type Activity Date Activity User E-sign Co-sign Detail Recorded Client Recorded Date Recorded By Document 12/23/23 13:47 FELICIANO [id number] 12/23/23 13:54 FELICIANO 12/23/23 13:47 Wound Center Nurse 2 5-right lower leg -Correct Patient No -Correct Side, Site, Position No -Correct Procedure No -Procedure Performed No -Post Debridement (cm) - Length 0 -Post Debridement (cm) - Width 0 -Post Debridement (cm) - Depth 0 -Total Square (Post) (cm) 0 -Area of Debridement (cm) - Length 0 -Area of Debridement (cm) - Width 0 -Total Square (Area) (cm) 0 -Wound/Ulcer Outcome Healed- Epithelialized 6-right sup barajas -Time 13:48 -Correct Patient Yes -Correct Side, Site, Position Yes -Correct Procedure Yes -Procedure Performed Yes -Type of Procedure Debridement -Clinical Debridement Subcutaneous -Tissue Removed Subcutaneous -Post Debridement (cm) - Length 2.5 -Post Debridement (cm) - Width 0.8 -Post Debridement (cm) - Depth 0.1 -Total Square (Post) (cm) 2.00 -Area of Debridement (cm) - Length 2.5 -Area of Debridement (cm) - Width 0.8 -Total Square (Area) (cm) 2.00 -Tunneling No -Undermining/Tunneling No -Circular Undermining No -Wound/Ulcer Outcome Not Healed -Ulcer Cleansing Rinsed/ Irrigated with Saline -Foul Odor after Cleansing No -Bioengineered Tissue No -Bleeding Controlled with Pressure -Treatment Response Procedure Tolerated Well -Offloading No -Debridement - Subq, 1st 20sq cm Yes Pain Scale: 0-10 Numeric Is Patient Pain Free? Yes - Nurse 3 - General Ulcer D/C NN Start: 12/23/23 13:25 Freq: Status: Active Protocol: Activity Type Activity Date Activity User E-sign Co-sign Detail Recorded Client Recorded Date Recorded By Document 12/23/23 14:03 [facility] [id number] 12/23/23 14:04 [facility] 12/23/23 14:03 Wound Care Center Nurse 3 6-right sup barajas -Primary Dressing Applied C Hydrogel ($), NonAdherent Contact Layer -Primary Dressing Covered/Secured with Dry Gauze & Roll Gauze, Secured with Tape Pain Scale: 0-10 Numeric Is Patient Pain Free? Yes WC - Visit Discharge Discharge Condition Stable Ambulatory Status Ambulatory,Cane Transportation Private Auto Medication Reconcilliation completed & No provided to patient/care provider Clinical Summary of Care Provided Yes Assessment/Plan Assessment/Plan (1) Non-pressure chronic ulcer of other part of right lower leg with fat layer exposed: CODE(S): L97.812 - Non-pressure chronic ulcer of other part of right lower leg with fat layer exposed PLAN: Patient was examined and evaluated. All findings were discussed with the patient. All questions were answered to the patient's satisfaction. Excision debridement down to and including subcutaneous tissue with a number 3 m m dermal curette to the right lateral full-thickness ulceration incident. Predebridement measurement was 2.4 x 0.7 x 0.1 cm. Postdebridement measurement is 2.5 x 0.8 x 0.1 cm. Right lower extremities were cleaned and patted dry. Ulceration was dressed with Teodora, dry sterile dressing and compression bandage to the right lower extremity. Culture taken of the ulceration. Patient will be placed on Keflex 3 times per day for the next 2 weeks for concern of cellulitic infection to the proximal right leg wound. Will adjust antibiotics if needed. Follow-up at the wound care center with Dr. Bal in 1 week. (2) Other specified peripheral vascular diseases: CODE(S): I73.89 - Other specified peripheral vascular diseases
--- NOTE | 2023-12-24 08:55 | WC ---
PHOTO 12/23/23 RIGHT SUP GARCIA
--- NOTE | 2023-12-24 09:19 | WC ---
PHOTO 12/23/23 RIGHT LATERAL LEG
[2023-12-30 13:09] VITALS: BP 105/60; PULSE 80; RESP 16; TEMP 35.9
--- NOTE | 2023-12-30 13:37 | PN.PCM_ITS ---
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 Patient has been compliant with dressing changes and compression. She admits that her wound is healed. Denies any new onset of trauma. Denies constitutional symptoms. No other pedal complaints at this time. Objective Data Objective Data Vital Signs: Vital Signs Temp Pulse Resp BP O2 Del Method 96.6 F L 80 16 105/60 Room Air 12/30/23 13:09 12/30/23 13:09 12/30/23 13:12/30/23 13:12/30/23 13:09 Oxygen Delivery Method Room Air Lab / Micro Data Micro: Microbiology 12/23/23 13:50 Ulcer, Decubitus - Leg, Right Gram Stain - Final 12/23/23 13:50 Ulcer, Decubitus - Leg, Right Wound Culture - Final No growth aerobically. 12/23/23 13:50 Ulcer, Decubitus - Leg, Right Anaerobic Culture - Final No anaerobic bacteria isolated. Physical Exam Narrative Vascular: DP and PT pulse are palpable to the bilateral lower extremity. Skin temperature gradient is warm to warm from proximal ankle to distal digits bilateral. Nonpitting edema appreciated bilateral lower extremity. Evidence of hemosiderin deposits are appreciated bilateral. Periwound erythema. Neurological: Light touch intact. Epicritic sensation is intact. Dermatological: Full-thickness wound to the right lateral leg is now healed. No sign of infection. Musculoskeletal: Mild pain to palpation to the distal lateral aspect of the left leg. No pain with calf compression. Assessment/Plan Assessment/Plan (1) Non-pressure chronic ulcer of other part of right lower leg with fat layer exposed: CODE(S): L97.812 - Non-pressure chronic ulcer of other part of right lower leg with fat layer exposed PLAN: Patient was examined and evaluated. All findings were discussed with the patient. All questions were answered to the patient's satisfaction. Patient's right leg ulceration is now healed. Patient be discharged from wound care center. Should continue to evaluate bilateral legs and watch out for any sharp objects to decrease her likelihood of laceration. She will wear compression stockings whenever up and ambulatory. Patient is cleared to follow- up as needed with Dr. Bal at the wound care center. She left the office pleased to visit. (2) Other specified peripheral vascular diseases: CODE(S): I73.89 - Other specified peripheral vascular diseases
--- NOTE | 2023-12-31 08:36 | WC ---
PHOTO 12/30/23 RIGHT LEG
== END 2023-12-30 13:31 | disposition home or self-care (01) ==
LOC: WC 13:00
PROVIDERS: PCP Family Medicine; Referring Provider Family Medicine; Visit Provider Podiatrist Foot & Ankle Surgery
DX: L97.812 Non-pressure chronic ulcer of other part of right lower leg with fat layer exposed (principal); I73.89 Other specified peripheral vascular diseases; X58.XXXS Exposure to other specified factors, sequela; Z79.899 Other long term (current) drug therapy
CPT/HCPCS: 11042; 87070; 87075; 87205; 99213; G0463

== ENCOUNTER → 2024-09-06 | Outpatient (CLI) | payer MEDICARE, SELFPAY ==
[2024-09-06 18:04] LABS: Absolute Lymphocyte Count 3.25 X10^3/uL (0.83-4.51); Absolute Neutrophil Count 4.2 X10^3/uL (2.0-7.7); Basophil# 0.04 X10^3/uL; Basophil% 0.5 % (0-1); Eosinophil# 0.21 X10^3/uL; Eosinophils% 2.5 % (0-5); Hematocrit 35.1 % (37-47); Lymphocyte # 3.25 X10^3/ul (0.83-4.51); Lymphocyte % 38.9 % (19-41); Mean Corp Hgb Conc 31.3 g/dL (32-36); Mean Corpuscular Hgb 31.1 pg (27.0-32.0); Mean Corpuscular Volume 99.2 fL (81-99); Mean Platelet Vol. 9.9 fl (6.2-12.0); Monocyte# 0.64 X10^3/uL; Monocyte% 7.7 % (0-10); NRBC Flagged by Analyzer 0 % (0-5); Neutrophil # 4.18 X10^3/uL (2.7-7.7); Platelet Count 251 K/mm3 (150-450); RBC Distribution Width CV 13.2 % (11.6-14.6); RBC Distribution Width SD 47.8 fl (35.1-43.9); Red Blood Count 3.54 M/mm3 (4.2-5.4); White Blood Count 8.4 K/mm3 (4.4-11.0)
[2024-09-06 19:07] LABS: ALB/GLOB Ratio 1.5 RATIO (0.9-2.4); AST(SGOT) 16 U/L (<=31); Alanine Aminotransfer ALT/SGPT 12 U/L (<=34); Albumin, Serum 4.3 g/dL (3.4-4.8); Alkaline Phosphatase 95 U/L (35-104); Anion Gap 9 (5-15); BUN 13 mg/dL (4-19); Calcium,Total 9.5 mg/dL (7.6-11.0); Carbon Dioxide 27.2 mmol/L (21.0-32.0); Chloride 99 mmol/L (98-108); Creatinine, Serum 0.98 mg/dL (0.70-1.20); EST Glomerular Filtration Rate 57 (>60); Globulin 2.8 g/dL (2.2-4.2); Glucose 81 mg/dL (70-99); Potassium 4.5 mmol/L (3.3-5.1); Protein, Total 7.1 g/dL (5.9-8.4); Sodium Level 136 mmol/L (133-145); Total Bilirubin 0.18 mg/dL (0.00-1.30); Vitamin D,25 Hydroxy 47.3 ng/mL (30-100)
== END | disposition home or self-care (01) ==
LOC: MFPLAB 14:07
PROVIDERS: PCP Family Medicine; Referring Provider Family Medicine; Visit Provider Family Medicine
DX: D64.9 Anemia, unspecified (principal); N18.2 Chronic kidney disease, stage 2 (mild); E03.9 Hypothyroidism, unspecified
CPT/HCPCS: 36415; 80053; 82306; 84443; 85025

== ENCOUNTER 2024-11-16 13:00 | Outpatient (RCR) | payer MEDICARE, SELFPAY ==
--- NOTE | 2024-11-10 12:54 | HP.PTEVAL_ITS ---
Patient's Visit Information Visit Information Visit Information: KRISTINE EGAN is a 84 year old F referred to Physical Therapy by Katerina Miller MD with a diagnosis of LE weakness. Date of Evaluation: 11/10/24 Physical Therapist: EMERALD StarrT, OCS, CSCS Visit Plan Frequency: 3x /Week Duration: 4-6 Weeks Plan: 3x/week for 4-6 weeks. IE HEP: walk with wh walker 5-8 min 2x/day, Balance HO reeviewed for safeety. Please trat with instruction in and progression to home shoulder ROM, postural adn LE strength exercises adn weight shifting ex, Get to I home program with pics as safety allows ensuring that knees and back tolerate well. Subjective Subjective: legs are weak and balance is poor. No falls but has to grab onto things sometimes. Has LBP and into B hips and B legs with walking and standing. L>R. No balance. Hard to walk on grass and gravel, uses canee/walking stick allt he time. Getting up off chair is hard to do on legs. Standing is hard for length of time. Stpes are terrible and has to hold on and come down BW, has to pull up to next step. H/O pin in R LE from break in hip 4 yrs ago. That was slipp-ing on gravel. Sleep is OK, maybe too much according to . Basic ADLs all I, washes and cooks I. Hobbles. Reading is hobby. 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 No regular exercises. Pain Lb and legs: Pain Intensity (Out of 10): 0 Pain Intensity Range: 0 and 8 Objective Objective: Walks slowly back to PT with walking stick in R UE mod I, short steps and poor weight shifts. trasnfer chair requiring UE pusch, bd trasnfer I. Steps require UE pull and tends to use R LE due to L knee pain and weaker. Comes down with only R. Needs B rails. AROM L knee -3-98 and R -3 to 110 Stiffneess in spine adn some pain with walking during FGA which is much better with wh walker hip strength 3/5 abd and ext adn 3+ flexion, knees 3+ B ext adn flexion, ankles 4/5 ROM in hips ext limited to 0 , otherwise WFL. reflexes 1/3 in patella dn achills B Snsation LE WNL to gross light touch B. Balance/Special Test Scores Functional Gait Assessment Score: 22 % Disability: 26.6700 Lower Extremity Functional Score: 15 TUG Test Time Seconds: 28 30 Second Chair Rise Test Seconds: 6 Goals Goal 1:: I appropriate HEP for strength posture UE ROM and weight shifts to limit future problems Goal Time Frame: 4-6 Weeks Goal 2:: Score 10 on 30 SSTS and <20 on TUG to show improved mobility Goal Time Frame: 4-6 Weeks Goal 3:: Pt squat to get in lower cupboards without concern Goal Time Frame: 4-6 Weeks Goal 4:: FGA score is 24/30 to reduc fall risk. Goal Time Frame: 4-6 Weeks Goal 5:: Pt feel 50% betteer in overall mobility and strength to get off toileet without pulling Goal Time Frame: 4-6 Weeks Rehabilitation Potential Physical Therapy Diagnosis: seedentary lifestyle combined wiht degen knees and back limiting fucniton over time and effecting qulaity of life. Rehabilitation Potential: Fair Anticipated Interventions Patient/Client Instruction: Educate patient on: Condition and Plan of Care For the Purpose of:: To decrease pain, To increase ROM, To improve nutrient delivery to tissue, To increase tolerance to activity/condition/position, To improve ability of physical actions for home/community/work/leisure, To improve gait and locomotor functions and To improve safety Therapeutic Exercise to Include: Strength training, Balance training, Postural training, Active ROM and Dynamic Lumbar Stabilization For the Purpose of:: To decrease pain, To increase ROM, To improve nutrient delivery to tissue, To increase tolerance to activity/condition/position, To improve ability of physical actions for home/community/work/leisure and To improve gait and locomotor functions Text: Thank you for the opportunity to evaluate your patient. For Medicare and Medicare HMO plans, please review the plan of care and approve it. It will need to be FAXED BACK to us at [phone] for Medicare purposes. For Medicare only, by signing this I certify the plan of care. Please let me know if there are questions or concerns regarding this plan of care. Physician Signature: Date:
--- NOTE | 2025-02-07 10:47 | HP.PTDCNRP_ITS ---
Patient Information Patient Information: KRISTINE EGAN was seen in my office for initial evaluation on 11/10/24. The following Plan of Care was established for this patient: POC Established Initial Frequency: 3x /Week Initial Duration: 4-6 Weeks Anticipated Interventions Patient/Client Instruction: Educate patient on: Condition and Plan of Care For the Purpose of:: To decrease pain, To increase ROM, To improve nutrient delivery to tissue, To increase tolerance to activity/condition/position, To improve ability of physical actions for home/community/work/leisure, To improve gait and locomotor functions and To improve safety Therapeutic Exercise to Include: Strength training, Balance training, Postural training, Active ROM and Dynamic Lumbar Stabilization For the Purpose of:: To decrease pain, To increase ROM, To improve nutrient delivery to tissue, To increase tolerance to activity/condition/position, To imp rove ability of physical actions for home/community/work/leisure and To improve gait and locomotor functions Last Seen Last Seen: This patient was last seen in our office 11/16/24. Pertinent comments regarding their Physical therapy will appear below: Pt seen 2 visits of POC but did not return for any further visits. At this point, it has been over 2 months and I will discontinue from my care At this point I will be discontinuing this patient from physical therapy. I would be happy to see this patient again in the future if found appropriate by the physician. Thank you! Saravanan Padron, DPT, OCS, CSCS Balance/Gait/Functional tests Balance/Special Test Scores Functional Gait Assessment Score: 22 % Disability: 26.6700 Lower Extremity Functional Score: 15 TUG Test Time Seconds: 28 Tug Test: 20-30sec.=variable mobility 30 Second Chair Rise Test Seconds: 6
== END 2024-11-16 19:00 | disposition home or self-care (01) ==
LOC: PT 13:00
PROVIDERS: PCP Family Medicine; Referring Provider Family Medicine; Visit Provider Family Medicine
DX: R29.898 Other symptoms and signs involving the musculoskeletal system (principal)
CPT/HCPCS: 97110; 97162

== ENCOUNTER → 2024-12-01 | Outpatient (CLI) | payer MEDICARE, SELFPAY | END | disposition home or self-care (01) | LOC: MFPLAB 15:53 | PROVIDERS: PCP Family Medicine; Referring Provider Family Medicine; Visit Provider Family Medicine | DX: E03.9 Hypothyroidism, unspecified (principal) | CPT/HCPCS: 36415; 84443 ==